=== PATIENT | female | born 2000 | race Caucasian/White ===

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

== ENCOUNTER 2018-09-17 11:29 | Emergency (ER) | payer BC, SELFPAY ==
[2018-09-17 11:41] VITALS: BP 143/93; PULSE 106; RESP 20; TEMP 36.6; O2SAT 100; BMI 19.5
--- NOTE | 2018-09-17 12:19 | HMH.EDUTC ---
[facility] [place] Disposition Clinical Impression: URI (upper respiratory infection) Qualifiers: URI type: unspecified URI Qualified Code(s): J06.9 - Acute upper respiratory infection, unspecified Disposition: Home, Self-Care Condition on Discharge: Good Instructions: Sore Throat, DI for Cough -- Adult Additional Instructions: *Monitor Temp, Over the counter Motrin or Tylenol as directed/as needed Tylenol every 4 hours and Motrin every 6 hours (as long as your family doctor has told you that you can take it) for fever or pain. and straight to ER if unable to lower temp less than 101.0 after medication given *Warm salt water gargles may help to soothe the throat *Throat Lozenges *Warm fluids *Sleep elevated *Humidifier/Vaporizer Follow up with ENT as advised Return if needed Follow up IMMEDIATELY for new or worsening symptoms or no Noticeable improvement over the next 48-72 hours. 911 for difficulty breathing or swallowing Prescriptions: Amoxicillin/Potassium Clav [Augmentin 875-125 Tablet] 1 tab PO Q12H 7 Days #14 tab methylPREDNISolone [Medrol 4mg tab] 4 mg PO DIRECTED #21 tab Referrals: Brady Ramirez [Primary Care Provider] - Stephen Smtih MD [Staff Physician] - As needed (Call and make appointment) Time of Disposition: 13:34 Medical Decision Making - Erasmo Inquiry Pt receiving controlled substance: No Erasmo was queried for this patient: No Vital Signs: 09/17/18 11:41 Temperature 97.8 F Temperature Source Oral Pulse Rate [Right Brachial] 106 H Respiratory Rate 20 Blood Pressure [Right Arm] 143/93 H Blood Pressure Mean [Right Arm] 109 Blood Pressure Source [Right Arm] Automatic Cuff Blood Pressure Position [Right Arm] Sitting 02 Sat by Pulse Oximetry 100 Oxygen Delivery Method Room Air Orders (Tests/Meds): ORDERS Category Date Time Status Chest XR 2 view (NOT portable) [XR chest 2V] Stat Exams 09/17/18 12:20 Taken - Reevaluation(s) Time: 12:52 Reevaluation #1: Still awaiting xray to come and do chest xray, contacted them again and they said they was on their way to get her Time: 13:20 Reevaluation #3: Spoke with ER physician and he advised that he was going to come over and speak with patient, Dr Morales recommended starting patient on augmentin, medrol dose pack and have her follow up with ENT [facility] [place] HPI - General Stated complaint: No voice Time Seen by Provider: 09/17/18 12:19 Mode of Arrival: Family Vehicle Source of Information: Patient Limitations: No Limitations Description of Symptoms (Recalled from Triage Doc. by RN): c/o TROUBLE BREATHING AND CONGESTION HEENT Symptoms (Recalled from RN notes): Yes Resp Symptoms (Recalled from RN notes): Yes Skin Symptoms (Recalled from RN notes): No MS Symptoms (Recalled from RN notes): No Functional Status (Recalled from RN notes): N/A - History of Present Illness Provider Complaint: Patient state that she has been having sore throat and loss of voice State that she feels like she may have some congestion and feels like she cant get a good breath at times State that yesterday she lost her voice and today she is only able to whisper. State that she has been taking her allergy medication but it hasn't helped much - Related Data Home Medications Medication Instructions Recorded Confirmed Fexofenadine/Pseudoephedrine 1 each PO BID 09/17/18 09/17/18 [Saritha-D 12 Hour Tablet] Previous Rx's Medication Instructions Recorded Amoxicillin/Potassium Clav 1 tab PO Q12H 7 Days #14 tab 09/17/18 [Augmentin 875-125 Tablet] methylPREDNISolone [Medrol 4mg 4 mg PO DIRECTED #21 tab 09/17/18 tab] Allergies Allergy/AdvReac Type Severity Reaction Status Date / Time promethazine [PROMETHAZINE] Allergy Unknown Verified 03/24/18 17:02 Sulfa (Sulfonamide Allergy Unknown Verified 03/24/18 17:02 Antibiotics) [SULFA (SULFONAMIDE ANTIBIOTICS)] - Worker's Comp Is this a Worker's Comp case?: No [facility] Histor
--- NOTE | 2018-09-17 12:20 | XR_ITS ---
XR chest 2V HISTORY: ITS.REASON: C/O CONGESTION ORDERING PHYSICIAN: Amparo Carl APRN PATIENT AGE: 17 years COMPARISON: 06/06/2017 FINDINGS: The cardiomediastinal silhouette and pulmonary vascularity are within normal limits. The lungs are clear without infiltrates, suspicious nodules, or pleural effusions. There is a faint nodular opacity in right midlung laterally probably not significant changed. No lobar consolidation or collapse. No acute bony findings. No acute bony abnormalities. IMPRESSION: No change with no acute finding
--- NOTE | 2018-09-17 12:23 | ED_ITS ---
[facility] [place]position Clinical Impression: URI (upper respiratory infection) Qualifiers: URI type: unspecified URI Qualified Code(s): J06.9 - Acute upper respiratory infection, unspecified Disposition: Home, Self-Care Condition on Discharge: Good Instructions: Sore Throat, DI for Cough -- Adult Additional Instructions: *Monitor Temp, Over the counter Motrin or Tylenol as directed/as needed Tylenol every 4 hours and Motrin every 6 hours (as long as your family doctor has told you that you can take it) for fever or pain. and straight to ER if unable to lower temp less than 101.0 after medication given *Warm salt water gargles may help to soothe the throat *Throat Lozenges *Warm fluids *Sleep elevated *Humidifier/Vaporizer Follow up with ENT as advised Return if needed Follow up IMMEDIATELY for new or worsening symptoms or no Noticeable improvement over the next 48-72 hours. 911 for difficulty breathing or swallowing Prescriptions: Amoxicillin/Potassium Clav [Augmentin 875-125 Tablet] 1 tab PO Q12H 7 Days #14 tab methylPREDNISolone [Medrol 4mg tab] 4 mg PO DIRECTED #21 tab Referrals: Brady Ramirez [Primary Care Provider] - Stephen Smith MD [Staff Physician] - As needed (Call and make appointment) Time of Disposition: 13:34 Medical Decision Making - Erasmo Inquiry Pt receiving controlled substance: No Erasmo was queried for this patient: No Vital Signs: 09/17/18 11:41 Temperature 97.8 F Temperature Source Oral Pulse Rate [Right Brachial] 106 H Respiratory Rate 20 Blood Pressure [Right Arm] 143/93 H Blood Pressure Mean [Right Arm] 109 Blood Pressure Source [Right Arm] Automatic Cuff Blood Pressure Position [Right Arm] Sitting 02 Sat by Pulse Oximetry 100 Oxygen Delivery Method Room Air Orders (Tests/Meds): ORDERS Category Date Time Status Chest XR 2 view (NOT portable) [XR chest 2V] Stat Exams 09/17/18 12:20 Taken - Reevaluation(s) Time: 12:52 Reevaluation #1: Still awaiting xray to come and do chest xray, contacted them again and they said they was on their way to get her Time: 13:20 Reevaluation #3: Spoke with ER physician and he advised that he was going to come over and speak with patient, Dr Morales recommended starting patient on augmentin, medrol dose pack and have her follow up with ENT [facility] [place] HPI - General Stated complaint: No voice Time Seen by Provider: 09/17/18 12:19 Mode of Arrival: Family Vehicle Source of Information: Patient Limitations: No Limitations Description of Symptoms (Recalled from Triage Doc. by RN): c/o TROUBLE BREATHING AND CONGESTION HEENT Symptoms (Recalled from RN notes): Yes Resp Symptoms (Recalled from RN notes): Yes Skin Symptoms (Recalled from RN notes): No MS Symptoms (Recalled from RN notes): No Functional Status (Recalled from RN notes): N/A - History of Present Illness Provider Complaint: Patient state that she has been having sore throat and loss of voice State that she feels like she may have some congestion and feels like she cant get a good breath at times State that yesterday she lost her voice and today she is only able to whisper. State that she has been taking her allergy medication but it hasn't helped much - Related Data Home Medications Medication Instructions Recorded Confirmed
[2018-09-17 13:41] VITALS: BP 143/93; PULSE 106; RESP 20; TEMP 36.6; O2SAT 100
== END 2018-09-17 13:42 | disposition home or self-care (01) ==
PROVIDERS: Emergency Provider Nurse Practitioner; PCP Internal Medicine
DX: J06.9 Acute upper respiratory infection, unspecified (principal); Z88.2 Allergy status to sulfonamides
CPT/HCPCS: 71046; 99201

== ENCOUNTER 2019-08-26 09:18 | Emergency (ER) | payer BC, SELFPAY ==
[2019-08-26 09:35] VITALS: BP 117/69; PULSE 86; RESP 17; TEMP 36.8; O2SAT 99; BMI 20.3
[2019-08-26 09:44] LABS: Microscopic, Urine URINE MICROSCOPIC (MICROSCOPIC)
[2019-08-26 09:45] LABS: Basophils % 0.3 % (0.1-2.0); Eosinophils # 0.1 K/mm3 (0.0-0.4); Hematocrit 33.8 % (37.0-47.0); Hemoglobin 11.5 g/dL (12.2-16.2); Lymphocytes # 1.9 K/mm3 (0.7-4.5); Mean Corpuscular Hemoglobin 32.1 pg (27.0-31.2); Mean Corpuscular Volume 94.3 fl (81-99); Mean Platelet Volume 8.2 fl (7.4-10.4); Monocytes # 0.4 K/mm3 (0.1-1.0); Monocytes % 4.5 % (1.7-9.3); Neutrophils # 5.4 K/mm3 (1.8-7.8); Neutrophils % 69.2 % (37.0-80.0); Platelet Count 168 K/mm3 (142-424); Red Blood Count 3.58 M/mm3 (4.20-5.40); White Blood Count 7.8 K/mm3 (4.5-13.0)
[2019-08-26 09:46] LABS: Appearance,Urine CLEAR (Clear); Bilirubin,Urine Negative (Negative); Blood, Urine 3+ (Negative); Color,Urine YELLOW (Yellow); Glucose,Urine (UA) Negative (Negative); Ketones,Urine Negative (Negative); Leukocyte Esterase,Urine TRACE (Negative); Nitrate,Urine Negative (Negative); PH,Urine 7.5 (5.0-8.5); Protein,Urine Negative (Negative); Urobilinogen,Urine 0.2 EU/dl (0.2)
[2019-08-26 09:48] LABS: Chloride 102 mmol/L (98-107); Potassium 3.9 mmoL/L (3.5-5.1); Sodium 136 mmol/L (136-145); Urine Pregnancy, HCG Qual. Positive (Negative)
[2019-08-26 09:50] LABS: Amylase 112 U/L (30-110)
--- NOTE | 2019-08-26 09:50 | US_ITS ---
PROCEDURE: US OB >= 14 WEEKS FETUS CLINICAL INDICATION: vaginal bleeding/abdominal cramping. 17 wk preg. COMPARISON: US OB TRANSVAGINAL from 08/14/2019 FINDINGS: There is a single viable fetus in breech presentation. The placenta is anterior, grade 1. There is a normal amount of amniotic fluid. The heart rate is 136 beats per minute. No gross abnormalities identified. measurements reveal the BPD to be 3.68 cm equaling 17 weeks and 2 days occipital frontal diameter is 5.15 cm equaling 18 weeks 3 days. The head circumference is 14.06 cm equaling 17 weeks 3 days and the abdominal circumference is 13.57 cm equaling 19 weeks 1 day. The femur length is 2.41 cm equaling 17 weeks 2 days. There is normal movement and tone. IMPRESSION: Breech fetus, approximate estimated age 17 weeks 6 days, there has been normal interval growth in the measurement parameters compared with the most recent study Estimated due date by Ultrasound is 01/28/2020 Dictated by: Dr. Tez Grimm MD 08/26/2019 14:[address] Tez Grimm MD in [place] 08/26/2019 14:06
[2019-08-26 09:51] LABS: Alanine Aminotransferase 18 U/L (12-78); Albumin Level 4.1 g/dl (3.5-5.0); Albumin/Globulin Ratio 1.4 (1.1-1.8); Alkaline Phosphatase 68 U/L (38-126); Anion Gap 13.9 mEq/L (5-15); Aspartate Amino Transferase 28 U/L (14-36); Bilirubin,Total 0.6 mg/dl (0.2-1.3); Blood Urea Nitrogen 9 mg/dl (7-17); Calcium 9.2 mg/dl (8.4-10.2); Carbon Dioxide 24 mmol/L (22.0-30.0); Creatinine Clearance Estimated 167 mL/min (50-200); Estimated Glomerular Filt Rate 157 ml/min (>60); GFR (African American) 190 ML/MIN (>60); Globulin 2.9 g/dL (1.3-3.2); Glucose 81 mg/dl (74-100); Lipase 41 U/L (23-300)
[2019-08-26 09:52] LABS: Amorphous Sediment,Urine 3+ /lpf; Squamous Epithelial Cell,Urine Occasional #/hpf (0-5)
[2019-08-26 10:32] LABS: HCG,Quantitative 19623 mIU/ml (0-5.42)
--- NOTE | 2019-08-26 11:37 | PC.NURSE ---
called [facility] [employer] to page economic developer for dr escudero
--- NOTE | 2019-08-26 11:41 | HMH.EDUROGF ---
ED Disposition Clinical Impression: Vaginal bleeding Disposition: Home, Self-Care Condition on Discharge: Good Instructions: DI for Vaginal Bleeding Additional Instructions: I did speak with the patient's VICE PRESIDENT OF CONSULTING SERVICES and she was fine sent the patient home and have her follow-up next week. Referrals: Brady Ramirez [Primary Care Provider] - - Critical Care Critical Care Time: No Attestation: On 08/26/19, the high probability of a clinically significant, sudden or life threatening deterioration of the following system(s) required my full and direct attention, intervention and personal management. The time I documented below is in addition to time spent performing reported procedures but includes the following listed in this critical care notation. Medical Decision Making - Medical Records Medical records reviewed: Yes: I reviewed the patient's medical records. - Erasmo Inquiry Pt receiving controlled substance: No Vital Signs: 08/26/19 09:35 Temperature 98.3 F Temperature Source Oral Pulse Rate [Right Radial] 86 Respiratory Rate 17 Blood Pressure [Right Arm] 117/69 Blood Pressure Mean [Right Arm] 85 02 Sat by Pulse Oximetry 99 Oxygen Delivery Method Room Air - Lab Data Lab results reviewed: Yes: I reviewed the patient's lab results. Lab Results 08/26/19 09:30: Urine Color Yellow, Urine Appearance Clear, Urine pH 7.5, Ur Specific [place] 1.020, Urine Protein Negative, Urine Glucose (UA) Negative, Urine Ketones Negative, Urine Blood 3+, Urine Nitrate Negative, Urine Bilirubin Negative, Urine Urobilinogen 0.2, Ur Leukocyte Esterase Trace, Urine RBC 3-5, Urine WBC 3-5, Ur Squamous Epith Cells Occasional, Amorphous Sediment 3+, Urine Bacteria None 08/26/19 09:30: WBC 7.8, RBC 3.58 L, Hgb 11.5 L, Hct 33.8 L, MCV 94.3, MCH 32.1 H, MCHC 34.0, RDW 15.0, Plt Count 168, MPV 8.2, Neut % (Auto) 69.2, Lymph % (Auto) 25.0, [place] % (Auto) 4.5, Eos % (Auto) 1.0, Baso % (Auto) 0.3, Neut # (Auto) 5.4, Lymph # (Auto) 1.9, [place] # (Auto) 0.4, Eos # (Auto) 0.1, Baso # (Auto) 0.0 08/26/19 09:30: Urine HCG, Qual Positive 08/26/19 09:30: Sodium 136, Potassium 3.9, Chloride 102, Carbon Dioxide 24, Anion Gap 13.9, BUN 9, Creatinine 0.50 L, Estimated Creat Clear 167, Estimated GFR 157, Est GFR ( Amer) 190, Glucose 81, Calcium 9.2, Total Bilirubin 0.6, AST 28, ALT 18, Alkaline Phosphatase 68, Total Protein 7.0, Albumin 4.1, Globulin 2.9, Albumin/Globulin Ratio 1.4, Amylase 112 H, Lipase 41 08/26/19 09:30: HCG, Quant [id number] H 08/26/19 09:44: Blood Type O Positive Result diagrams: 08/26/19 09:30 08/26/19 09:30 Orders (Tests/Meds): ORDERS Category Date Time Status US OB >= 14 weeks Fetus Stat Ultrasound 08/26/19 09:50 Ordered - US Data US Images: Abdomen (Patient is a normal uterine placenta was seen mucous plug was seen normal PIERCE heart rate was 136 and the baby is in breech position.) Female Urogenital HPI - General Chief complaint: Vaginal Bleeding Stated complaint: 17 wks bleeding Time Seen by Provider: 08/26/19 11:41 Mode of Arrival: Ambulatory Limitations: No Limitations Description of Symptoms (Recalled from ER Triage Doc. by RN): pt states she is 17 weeks and she woke up this morning with vaginal bleeding. pt states she is having some cramping but she has had cramping the entire . - History of Present Illness HPI Narrative: 18-year-old female G1, P0 at 17 weeks presents the ED with some vaginal bleeding. She states that she is also feeling some cramping but she has been experiencing some discharge that is been blood-tinged. Patient denies any loss of fluid. She denies any dysuria. She states that the pain she is having is a crampy-like sensation generalized abdomen going on for last 24 hours that comes and goes she states there is been 2-3 episodes of this she rates the pain 3 out of 10 that is tolerable with no exacerbating or limiting factors. Patient also sta
--- NOTE | 2019-08-26 11:41 | PC.NURSE ---
ANDREWS SAMS on phone with Dr Augustin from @ this time
[2019-08-26 11:48] VITALS: BP 112/74; PULSE 102; RESP 16; TEMP 36.6; O2SAT 98
== END 2019-08-26 11:49 | disposition home or self-care (01) ==
PROVIDERS: Emergency Provider Family Medicine; PCP Internal Medicine
DX: O20.9 Hemorrhage in early pregnancy, unspecified (principal); Z3A.17 17 weeks gestation of pregnancy; Z88.2 Allergy status to sulfonamides; Z90.09 Acquired absence of other part of head and neck
CPT/HCPCS: 76805; 80053; 81001; 81025; 82150; 83690; 84702; 85025; 86900; 86901; 99283

== ENCOUNTER 2020-01-16 02:15 | Inpatient (IN) | payer BC, OTHER, SELFPAY ==
[2020-01-15 22:44] VITALS: BMI 27.2
[2020-01-15 23:07] LABS: Microscopic, Urine URINE MICROSCOPIC (MICROSCOPIC)
[2020-01-15 23:08] LABS: Appearance,Urine SL CLOUDY (Clear); Bilirubin,Urine Negative (Negative); Blood, Urine TRACE-L (Negative); Color,Urine YELLOW (Yellow); Glucose,Urine (UA) Negative (Negative); Ketones,Urine Negative (Negative); Leukocyte Esterase,Urine 3+ (Negative); Nitrate,Urine Negative (Negative); PH,Urine 6.5 (5.0-8.5); Protein,Urine Negative (Negative); Urobilinogen,Urine 0.2 EU/dl (0.2)
[2020-01-15 23:20] VITALS: BMI 27.2
[2020-01-15 23:21] LABS: Amphetamine/Metha Screen,Urine Negative ng/ml (<1000); Barbiturates Screen,Urine Negative ng/ml (<200)
[2020-01-15 23:22] LABS: Benzodiazepines Screen,Urine Negative ng/ml (<200); Cannabinoid Screen,Urine Negative ng/ml (<50)
[2020-01-15 23:23] LABS: Cocaine Screen,Urine Negative ng/ml (<300)
[2020-01-15 23:24] LABS: Methadone Screen,Urine Negative ng/ml (<300); Opiate Screen,Urine Negative ng/ml (<300)
[2020-01-15 23:25] LABS: Amorphous Sediment,Urine 1+ /lpf; Bacteria,Urine 1+ /lpf; Mucus,Urine 1+ /lpf; Phencyclidine Screen,Urine Negative ng/ml (<25)
[2020-01-16 01:36] LABS: Basophils % 0.3 % (0.1-2.0); Eosinophils # 0.1 K/mm3 (0.0-0.4); Eosinophils % 0.6 % (0.1-12.0); Hemoglobin 12.5 g/dL (12.2-16.2); Lymphocytes # 2.1 K/mm3 (0.7-4.5); Lymphocytes % 13.5 % (10-50); Mean Corpuscular HGB Conc 34.7 g/dL (31.8-35.4); Mean Corpuscular Hemoglobin 31.7 pg (27.0-31.2); Mean Corpuscular Volume 91.2 fl (81-99); Mean Platelet Volume 10.4 fl (7.4-10.4); Monocytes % 6.3 % (1.7-9.3); Neutrophils # 12.6 K/mm3 (1.8-7.8); Neutrophils % 79.3 % (37.0-80.0); Platelet Count 128 K/mm3 (142-424); Red Blood Count 3.95 M/mm3 (4.20-5.40); Red Cell Distribution Width 14.6 % (11.5-17.5); White Blood Count 15.9 K/mm3 (4.8-10.8)
[2020-01-16 01:40] LABS: MANUAL DIFFERENTIAL MANUAL DIFFERENTIAL (MANUAL DIFF)
[2020-01-16 02:05] LABS: Coronavirus 19 IgG Antibody Negative (Negative); Coronavirus 19 IgM Antibody Negative (Negative)
[2020-01-16 03:35] LABS: Lymphocytes % 12 % (10-50); Monocytes % 1 % (2-9); Neutrophils % 87 % (42-76); Platelet Estimate Normal; RBC Morphology Normal; Total Cells Counted 100
--- NOTE | 2020-01-16 03:47 | HMH.ANESCL ---
[facility] Anesthesia Checklist - Patient Identification Patient Identification: Arm Band - Structural Data Admitted From: Inpatient Planned Operative Procedure/s: labor epidural Consent for Planned Operative Procedure(s) Verified: Yes Verified Documents: History and Physical - NPO Status Verified Time NPO: 00:00 - Additional verifications Anesthesia Reactions: No - Airway Assessment C-Spine Mobility Assessed: Yes TMJ Mobility Assessed: Yes Dentition: Good Dentition - Neurological Assessment Level of Consciousness: Awake, Alert - Anesthesia Plan Anesthesia Risk discussed: Yes Anesthesia Plan: Verified ASA Class: II Anesthesia Type: Epidural [facility] History I have reviewed the patient's past medical history: Yes Medical History: Reports:: Ulcer Denies:: Cancer, Diabetes Mellitus Type 1, Diabetes Mellitus Type 2, Hypertension, MRSA *Have you ever received a pneumonia vaccine?: No *Have you received a flu vaccine this season?: No Other Medical History: Reports: Other Anesthesia experience/problems:: nac Laterality Cases: Bilateral: Myringotomy (Ear Tubes), Tonsillectomy Other Surgeries: Yes: Diagnostic Lap, Other. No: Amputation: No Fractures: No - *Social History Smoking Status: Never smoker Alcohol Intake: never Substance Use Type: denies use *Occupational Status:: unemployed Housing: house Household Members: family *Travel in the last 8 weeks: None Family Hx:: Cancer, Stroke Para: 0
[2020-01-16 07:20] VITALS: BP 116/56; PULSE 84; RESP 18; TEMP 36.9; O2SAT 99
--- NOTE | 2020-01-16 08:02 | HMH.LABNOT ---
Labor Note - Subjective: Date: 01/16/20 Time: 08:03 regular contraction - Objective: NST:: Reactive Contractions:: every 2-3 minutes Cervical Dilation:: 4 Effacement:: 100% Membranes: artificially ruptured - Fetus: Monitoring?: Yes monitoring type:: Internal and External Comment:: I ruptured membranes and there was clear fluid. I inserted an IUPC. - Assessment: Labor progressing?: Yes Cephalopelvic disproportion?: No Patient Problems: All Active Problems Strep pharyngitis (Acute) Abdominal pain (Acute) Ruptured ovarian cyst (Acute) Constipation (Acute) Ovarian cyst (Acute) Low back strain (Acute) Tendinitis, de Quervain's (Acute) Viral upper respiratory illness (Acute) URI (upper respiratory infection) (Acute) Conjunctivitis (Acute) Migraine (Acute) Pelvic pain (Acute) Amenorrhea (Acute) UTI (urinary tract infection) (Acute) Allergic rhinitis (Acute) Nausea & vomiting (Acute) IUD (intrauterine device) in place (Acute) Viral syndrome (Acute) UTI in (Acute) Abdominal pain affecting (Acute) Vaginal bleeding (Acute) - Plan: Anesthesia for epidural?: Yes Continue to labor down?: Yes Plan for ?: No Continue to monitor?: Yes Start pushing?: No
--- NOTE | 2020-01-16 08:03 | HMH.OBAPHP ---
OB - H&P: HPI Antepartum - History of Present Illness Chief complaint: She was having regular contractions. History of present illness: She is a 19-year-old 1 para 0 at 37 and 4 weeks gestational age. She is been followed by a doctor in [place] at [facility]. She lives in [facility]. She did not think she could make it to [place] because she was in active labor. As result of that she came here. She initially was 2 cm and progressed to 4 cm. She is 100% at this point time. She has an epidural. As result of that we are going to expect a vaginal delivery. She is an otherwise healthy young lady. - History of Present Criteria for establishing EDC:: LMP confirmed by 1st trimester US care: good care Ultrasounds: normal 1st trimester US, normal mid trimester US Obstetrical complications: none Medical complications: none - Labs Blood type: O (+) positive Rubella: immune RPR/VDRL: nonreactive GBS status: negative HBsAG: negative [facility] History I have reviewed the patient's past medical history: Yes Medical History: Reports:: Ulcer Denies:: Cancer, Diabetes Mellitus Type 1, Diabetes Mellitus Type 2, Hypertension, MRSA *Have you ever received a pneumonia vaccine?: No *Have you received a flu vaccine this season?: No Other Medical History: Reports: Other Anesthesia experience/problems:: nac Laterality Cases: Bilateral: Myringotomy (Ear Tubes), Tonsillectomy Other Surgeries: Yes: No Previous Surgery, Diagnostic Lap, Other. No: Amputation: No Fractures: No - *Social History Smoking Status: Never smoker Alcohol Intake: never Substance Use Type: denies use *Occupational Status:: unemployed Housing: house Household Members: family *Travel in the last 8 weeks: None Family Hx:: Cancer, Stroke Para: 0 Review of Systems - Review of Systems Review of systems:: pertinent systems reviewed and negative unless documented below Meds Allergies Allergy/AdvReac Type Severity Reaction Status Date / Time promethazine [PROMETHAZINE] Allergy Unknown Verified 12/15/18 16:56 Sulfa (Sulfonamide Allergy Unknown Verified 12/15/18 16:56 Antibiotics) [SULFA (SULFONAMIDE ANTIBIOTICS)] OB - H&P: Exam - Constitutional no acute distress - Routine HEENT Exam Head: Present: normocephalic Eye: Present: EOMI, PERRL ENT: Present: mucous membranes moist - Routine Neck Exam Present: supple, full ROM - Routine Respiratory Exam Absent: accessory muscle use (good air entry bilaterally), respiratory distress, wheezes, crackles - Routine Cardiovascular Exam Present: RRR. Absent: murmur - Routine Abdominal Exam Present: soft, normoactive bowel sounds. Absent: tenderness, distended, guarding - Routine Rectal Exam Patient deferred: visual exam, digital exam - Routine Exam Patient deferred: external exam, groin exam, perineal exam - Routine Extremities Exam Present: full ROM. Absent: cyanosis, edema - Routine Skin Exam Present: intact. Absent: cyanosis - Routine Neurological Exam Present: alert, oriented X3 - Routine Psychiatric Exam Present: normal affect OB - Results - Labs Labs: Short CBC 01/16/20 Range/Units 01:16 WBC 15.9 H (4.8-10.8) K/mm3 Hgb 12.5 (12.2-16.2) g/dL Hct 36.0 L (37.0-47.0) % Plt Count 128 L (142-424) K/mm3 Urine 01/15/20 Range/Units 22:44 Urine Color Yellow (Yellow) Urine Appearance Sl cloudy (Clear) Urine pH 6.5 (5.0-8.5) Ur Specific [place] 1.020 (1.005-1.030) Urine Protein Negative (Negative) Urine Glucose (UA) Negative (Negative) OB - A/P Antepartum (1) Normal delivery at term Current visit: Yes Status: Acute - Additional Plan Plan: expectant management Additional Information:: I have ruptured her membranes and she is 4 cm and had a percent effaced. She is having regular contractions. She has an epidural. She is otherwise healthy
--- NOTE | 2020-01-16 12:52 | HMH.LABNOT ---
Labor Note - Subjective: Date: 01/16/20 Time: 12:32 Comment:: comfortable with epidural cervix complete tracing remains reassuring - Objective: NST:: Reactive Contractions:: every 2-3 minutes Cervical Dilation:: 9-10 Effacement:: 100% Station: +1 Membranes: artificially ruptured - Assessment: Patient Problems: All Active Problems 37 weeks gestation of (Acute) Active labor at term (Acute) with care elsewhere (Acute) Strep pharyngitis (Acute) Abdominal pain (Acute) Ruptured ovarian cyst (Acute) Constipation (Acute) Ovarian cyst (Acute) Low back strain (Acute) Tendinitis, de Quervain's (Acute) Viral upper respiratory illness (Acute) URI (upper respiratory infection) (Acute) Conjunctivitis (Acute) Migraine (Acute) Pelvic pain (Acute) Amenorrhea (Acute) UTI (urinary tract infection) (Acute) Allergic rhinitis (Acute) Nausea & vomiting (Acute) IUD (intrauterine device) in place (Acute) Viral syndrome (Acute) UTI in (Acute) Abdominal pain affecting (Acute) Vaginal bleeding (Acute) Normal delivery at term (Acute) - Plan: Comment:: Labor down; will begin pushing shortly Anticipate
--- NOTE | 2020-01-16 15:29 | HMH.DN ---
- Delivery Note Delivery Date:: 01/16/20 Delivery Time:: 13:20 Anesthesia Type: Epidural Was labor medically induced?: No Infant delivered prior to 39 weeks?: Yes Justification for early elective delivery:: Active Labor Infant Gender: Male at 1 minute: 8 at 5 minutes: 9 Delivery Procedure:: Spontaneous vaginal delivery of liveborn male over intact perineum. Delivery uncomplicated No nuchal cord or shoulder dystocia with delivery placed in DOMINIC with mother immediately after umbilical cord clamped/cut, with standard nursing assessment performed Infant Apgars: 8 & 9 Placenta spontaneously expressed and examined; noted to be complete/intact. Vulva, vagina, and cervix inspected; bilateral labial lacerations repaired for hemostasis EBL: 300 cc All sponge/needle/instrument counts correct at conclusion of procedure Disposition: Mom/baby stable to recovery in LDRP Laceration:: labial Placental Delivery Description: Spontaneous
[2020-01-17 07:44] LABS: Hematocrit 29.4 % (37.0-47.0); Hemoglobin 9.8 g/dL (12.2-16.2)
[2020-01-17 08:30] VITALS: BP 111/68; PULSE 86; RESP 20; TEMP 36.5; O2SAT 100
--- NOTE | 2020-01-17 09:17 | HMH.ACPN2 ---
Internal Medicine - PN: Subj *Date: 01/17/20 *Time: 09:17 Interval history: PPD #1 No unusual complaints Lochia appropriate; asymptomatic with mild post-delivery anemia tolerating regular diet, ambulating and voiding without difficulty pain control sufficient Exam Vital signs and Labs for Last 24 Hours: Temp Pulse Resp BP Pulse Ox 98.4 F 84 18 116/56 L 99 01/16/20 07:20 01/16/20 07:20 01/16/20 07:20 01/16/20 07:20 01/16/20 07:20 Laboratory Results - last 24 hr 01/17/20 07:20: Hgb 9.8 L, Hct 29.4 L I & O for Last 24 hours: Intake & Output 01/14/20 01/15/20 01/16/20 01/17/20 11:59 11:59 11:59 11:59 Weight 174 lb Microbiology Reports for the Last 24 Hours: Microbiology 01/15/20 22:44 Urine,Clean Catch Urine Culture - Final Multiple organisms, suggests contamination. Narrative: CONSTITUTIONAL: no acute distress HEENT: mucous membranes moist PULMONARY: breathing unlabored without audible wheezes CV: no tachycardia or visible JVD; normal LE peripheral pulses ABD: soft, NT/ND, no guarding : fundus firm at/below umbilicus SKIN: no visible rash or lesions EXT: 1+ edema LEs NEURO: alert/oriented, no altered mental status PSYCH: appropriate mood and demeanor without visible anxiety/depression Assessment and Plan (1) Normal delivery at term Current visit: Yes Status: Acute Category: Medical Code(s): O80 - Encounter for full-term uncomplicated delivery - Assessment and plan all Dx Assessment and Plan for all problems:: PPD #1 Routine care PNV with FeSO4 Anticipate discharge home tomorrow
--- NOTE | 2020-01-18 10:15 | P.DS_ITS ---
General - General Admission date:: 01/16/20 Discharge date: 01/18/20 HPI HPI: G1 @ 37+ wks admitted in active labor care at [facility] Normal uncomplicated course uneventful Discharged home on PPD #2 in stable condition Tolerating regular diet, ambulating and voiding without difficulty Declines Rx for pain meds at discharge Advised that she may follow up with either primary OB or our office for care Hospital Course Rhogam Administration: Not Indicated Objective Vital signs: Temp Pulse Resp BP Pulse Ox 97.7 F 86 20 111/68 100 01/17/20 08:30 01/17/20 08:30 01/17/20 08:30 01/17/20 08:30 01/17/20 08:30 DS: Diagnosis - Discharge Diagnosis (1) Normal delivery at term Status: Acute Discharge Plan - Patient Discharge Instructions Additional Instructions: NO STRENUOUS ACTIVITY, NO HEAVY LIFTING AND NOTHING IN THE VAGINA FOR 6 WEEKS. APPT WITH [facility] Patient Instructions: Depression, Hemorrhage, DI for Labor and Delivery, Vaginal , DI for Pre-eclampsia, [facility] Post Discharge Instructions, Preventing the Spread of Coronavirus Discharge Instructions - Follow up Plan Follow up with: Bridget Suarez [Referring] - (F/U IN 6 WEEKS ) Home Medications: Home Medications Medication Instructions Recorded Confirmed Type Ferrous Sulfate [Iron 325mg Tab] 325 mg PO BID 01/16/20 01/16/20 History Vit 91/Iron/Folic/Dha 1 each PO DAILY 01/16/20 01/16/20 History [ + Dha Combo Pack] polyethylene glycoL 3350 [Miralax 17 gm PO DAILY 01/16/20 01/16/20 History 17gm Packet] Prescriptions/Medication Reconciliation: No Action Vit 91/Iron/Folic/Dha [ + Dha Combo Pack] 1 each PO DAILY polyethylene glycoL 3350 [Miralax 17gm Packet] 17 gm PO DAILY Ferrous Sulfate [Iron 325mg Tab] 325 mg PO BID - Problem Reconciliation Problems Reviewed?: Yes
== END 2020-01-18 11:00 | disposition home or self-care (01) | DRG 807 ==
LOC: OBOUT 02:20 → OB 02:20
PROVIDERS: Admitting Provider Obstetrics & Gynecology; PCP Obstetrics & Gynecology; Visit Provider Obstetrics & Gynecology
DX: O70.1 Second degree perineal laceration during delivery (principal); Z37.0 Single live birth; Z3A.37 37 weeks gestation of pregnancy
CPT/HCPCS: 59409; 59025; 80305; 81001; 85007; 85014; 85018; 85025; 86328; 86850; 87086; C1758; J0595; J2405

== ENCOUNTER 2020-06-25 09:57 | Emergency (ER) | payer BC, OTHER, SELFPAY ==
[2020-06-25 10:35] VITALS: BP 130/63; PULSE 80; RESP 14; TEMP 36.5; O2SAT 99; BMI 22.4
--- NOTE | 2020-06-25 10:53 | HMH.EDUTC ---
[facility] [place] Clinical Impression: Exposure to COVID-19 virus, Viral syndrome Disposition: Home, Self-Care Condition on Discharge: Good Instructions: DI for Viral Syndrome, Preventing the Spread of Coronavirus Discharge Instructions Additional Instructions: Drink plenty of fluids. Take tylenol for pain or fever. Return if you begin to have difficulty breathing. Follow up with your regular doctor. GO TO THE ER FOR ANY WORSENING SYMPTOMS Prescriptions: Ondansetron [Zofran 4mg ODT] 4 mg PO Q8HP PRN #12 tab.rapdis PRN Reason: Nausea Transmission Status: Received by [facility] Referrals: Brady Ramirez [Primary Care Provider] - Time of Disposition: 10:56 Medical Decision Making - Medical Records Medical records reviewed: No: I reviewed the patient's medical records. - Erasmo Inquiry Pt receiving controlled substance: No Vital Signs: 06/25/20 10:35 06/25/20 11:08 Temperature 97.7 F 97.9 F Temperature Source Oral Oral Pulse Rate 75 Pulse Rate [Right] 80 Respiratory Rate 14 16 Blood Pressure 129/65 Blood Pressure [Right Arm] 130/63 Blood Pressure Mean [Right Arm] 85 Blood Pressure Source [Right Arm] Automatic Cuff 02 Sat by Pulse Oximetry 99 Oxygen Delivery Method Room Air [facility] [place] - General Stated complaint: Exposure to covid, cov test Time Seen by Provider: 06/25/20 10:53 Mode of Arrival: Ambulatory Source of Information: Patient Limitations: No Limitations Description of Symptoms (Recalled from Triage Doc. by RN): pt states she was directly exposed to her mother in law who is covid positive on 06/18. pt is having a sore throat, stomach pains and FRAGA HEENT Symptoms (Recalled from RN notes): Yes (sore throat and FRAGA) Resp Symptoms (Recalled from RN notes): No Skin Symptoms (Recalled from RN notes): No MS Symptoms (Recalled from RN notes): No Functional Status (Recalled from RN notes): na - History of Present Illness Provider Complaint: She states that her mother has covid. Her mother is her real estate investment analyst, so her child has been exposed to covid. She denies any complaints at this time other than a mild head ache and some gi upset. - Related Data Home Medications Medication Instructions Recorded Confirmed Ferrous Sulfate [Iron 325mg Tab] 325 mg PO BID 01/16/20 01/16/20 Vit 91/Iron/Folic/Dha 1 each PO DAILY 01/16/20 01/16/20 [ + Dha Combo Pack] polyethylene glycoL 3350 [Miralax 17 gm PO DAILY 01/16/20 01/16/20 17gm Packet] Previous Rx's Medication Instructions Recorded Ondansetron [Zofran 4mg ODT] 4 mg PO Q8HP PRN #12 tab.rapdis 06/25/20 Allergies Allergy/AdvReac Type Severity Reaction Status Date / Time promethazine [PROMETHAZINE] Allergy Unknown Verified 06/25/20 10:14 Sulfa (Sulfonamide Allergy Unknown Verified 06/25/20 10:14 Antibiotics) [SULFA (SULFONAMIDE ANTIBIOTICS)] - Worker's Comp Is this a Worker's Comp case?: No [facility] History - Hepatitis A Screen Drug use history?: No High risk sexual behaviors?: No History of sexually transmitted infection?: No Currently employed?: No Childcare worker?: No Do you have indoor plumbing?: Yes Do you have electricity?: Yes Attestation statement:: This patient has been screened for Hepatitis A risk factors. I have reviewed the patient's past medical history: Yes Medical History: Reports:: Ulcer Denies:: Cancer, Diabetes Mellitus Type 1, Diabetes Mellitus Type 2, Hypertension, MRSA Other Medical History: Reports: Other Laterality Cases: Bilateral: Myringotomy (Ear Tubes), Tonsillectomy Other Surgeries: Yes: No Previous Surgery, Diagnostic Lap, Other. No: Amputation: No Fractures: No - Social History Smoking Status: Never smoker Alcohol Intake: never Substance Use Type: denies use Occupational Status: employed Housing: house Household Members: significant other Family Hx:: Cancer, Diabetes, Stroke ROS Obtained: Yes All syst
[2020-06-25 11:08] VITALS: BP 129/65; PULSE 75; RESP 16; TEMP 36.6
== END 2020-06-25 11:10 | disposition home or self-care (01) ==
PROVIDERS: Emergency Provider Nurse Practitioner Family; PCP Internal Medicine
DX: Z20.822 Contact with and (suspected) exposure to COVID-19 (principal); B34.9 Viral infection, unspecified; Z88.2 Allergy status to sulfonamides
CPT/HCPCS: 99202; G0463; U0003

== ENCOUNTER 2020-09-09 09:17 | Emergency (ER) | payer BC, OTHER, SELFPAY ==
[2020-09-09] VITALS (12 sets, daily range): BP systolic 117–139; BP diastolic 62–91; PULSE 70–84; RESP 16–19; TEMP 36.6–36.9; O2SAT 97–100; BMI 21.6
--- NOTE | 2020-09-09 09:39 | HMH.EDUTC ---
[facility] [place] Disposition Condition on Discharge: Good Time of Disposition: 09:49 <Amparo Carl - Last Filed: 09/09/20 09:49> <Maxim Norman - Last Filed: 09/09/20 21:28> Clinical Impression: PCOS (polycystic ovarian syndrome), History of endometriosis Abdominal pain Qualifiers: Abdominal location: unspecified location Qualified Code(s): R10.9 - Unspecified abdominal pain Disposition: Home, Self-Care Instructions: DI for Endometriosis Additional Instructions: Continue to use Tylenol and ibuprofen for pain and return to the ED for any significant change or worsening in your symptoms follow-up with OB for further evaluation and management. Referrals: Brady Ramirez [Primary Care Provider] - Forms: Work/School Release Medical Decision Making - Erasmo Inquiry Pt receiving controlled substance: No Erasmo was queried for this patient: No <Amparo Carl - Last Filed: 09/09/20 09:49> - Lab Data Result diagrams: 09/09/20 10:25 09/09/20 10:25 <Maxim Norman - Last Filed: 09/09/20 21:28> Vital Signs: 09/09/20 09:34 09/09/20 10:17 09/09/20 10:28 Temperature 98.4 F 98.4 F Temperature Source Oral Oral Pulse Rate Pulse Rate [Right Brachial] 84 80 Respiratory Rate 19 16 Blood Pressure 130/80 Blood Pressure [Right Arm] 139/91 H 127/89 Blood Pressure Mean Blood Pressure Mean [Right Arm] 107 101 Blood Pressure Source [Right Arm] Automatic Cuff Automatic Cuff Blood Pressure Position Blood Pressure Position [Right Arm] Sitting Sitting 02 Sat by Pulse Oximetry 98 98 97 Oxygen Delivery Method Room Air 09/09/20 10:30 09/09/20 11:00 09/09/20 11:30 Temperature Temperature Source Pulse Rate 74 77 Pulse Rate [Right Brachial] 79 Respiratory Rate 18 Blood Pressure 130/75 123/72 Blood Pressure [Right Arm] 123/72 Blood Pressure Mean 93 Blood Pressure Mean [Right Arm] 89 Blood Pressure Source [Right Arm] Automatic Cuff Blood Pressure Position Blood Pressure Position [Right Arm] Sitting 02 Sat by Pulse Oximetry 98 98 100 Oxygen Delivery Method Room Air 09/09/20 12:15 09/09/20 12:45 09/09/20 13:09 Temperature Temperature Source Pulse Rate 76 73 79 Pulse Rate [Right Brachial] Respiratory Rate 18 Blood Pressure 134/72 Blood Pressure [Right Arm] Blood Pressure Mean 93 Blood Pressure Mean [Right Arm] Blood Pressure Source [Right Arm] Blood Pressure Position Blood Pressure Position [Right Arm] 02 Sat by Pulse Oximetry 100 100 100 Oxygen Delivery Method 09/09/20 13:30 09/09/20 14:00 09/09/20 14:37 Temperature 98 F Temperature Source Oral Pulse Rate 70 70 78 Pulse Rate [Right Brachial] Respiratory Rate 18 18 16 Blood Pressure 117/62 121/81 123/78 Blood Pressure [Right Arm] Blood Pressure Mean 80 93 Blood Pressure Mean [Right Arm] Blood Pressure Source [Right Arm] Blood Pressure Position Sitting Blood Pressure Position [Right Arm] 02 Sat by Pulse Oximetry 98 100 Oxygen Delivery Method Room Air - Lab Data Lab Results 09/09/20 10:25: Urine Color Yellow, Urine Appearance Clear, Urine pH 6.0, Ur Specific [place] 1.025, Urine Protein Negative, Urine Glucose (UA) Negative, Urine Ketones Trace, Urine Blood Negative, Urine Nitrate Negative, Urine Bilirubin 1+ A, Urine Urobilinogen 1.0, Ur Leukocyte Esterase Negative, Urine RBC None, Urine WBC 3-5, Ur Squamous Epith Cells 3-5, Urine Bacteria None 09/09/20 10:25: WBC 5.2, RBC 4.52, Hgb 13.7, Hct 40.1, MCV 88.7, MCH 30.2, MCHC 34.1, RDW 14.4, Plt Count 149, MPV 8.8, Neut % (Auto) 58.3, Lymph % (Auto) 33.3, [place] % (Auto) 7.3, Eos % (Auto) 0.7, Baso % (Auto) 0.4, Neut # (Auto) 3.0, Lymph # (Auto) 1.7, [place] # (Auto) 0.4, Eos # (Auto) 0.0, Baso # (Auto) 0.0 09/09/20 10:25: Urine HCG, Qual Negative 09/09/20 10:25: Sodium 139, Potassium 3.7, Chloride 103, Carbon Dioxide 27, Anion Gap 12.7, BUN 10, Creatinine 0.60, Estimated Creat Clear 147, Estimated GFR 126, E
--- NOTE | 2020-09-09 10:28 | HMH.EDGENADL ---
ED Disposition Clinical Impression: PCOS (polycystic ovarian syndrome), History of endometriosis Abdominal pain Qualifiers: Abdominal location: unspecified location Qualified Code(s): R10.9 - Unspecified abdominal pain Disposition: Home, Self-Care Condition on Discharge: Good Instructions: DI for Endometriosis Additional Instructions: Continue to use Tylenol and ibuprofen for pain and return to the ED for any significant change or worsening in your symptoms follow-up with OB for further evaluation and management. Referrals: Brady Ramirez [Primary Care Provider] - Forms: Work/School Release Time of Disposition: 14:28 - Critical Care Critical Care Time: No Attestation: On 09/09/20, the high probability of a clinically significant, sudden or life threatening deterioration of the following system(s) required my full and direct attention, intervention and personal management. The time I documented below is in addition to time spent performing reported procedures but includes the following listed in this critical care notation. Medical Decision Making - Medical Records Medical records reviewed: Yes: I reviewed the patient's medical records. - Erasmo Inquiry Pt receiving controlled substance: No Vital Signs: 09/09/20 09:34 09/09/20 10:17 09/09/20 10:28 Temperature 98.4 F 98.4 F Temperature Source Oral Oral Pulse Rate Pulse Rate [Right Brachial] 84 80 Respiratory Rate 19 16 Blood Pressure 130/80 Blood Pressure [Right Arm] 139/91 H 127/89 Blood Pressure Mean Blood Pressure Mean [Right Arm] 107 101 Blood Pressure Source [Right Arm] Automatic Cuff Automatic Cuff Blood Pressure Position Blood Pressure Position [Right Arm] Sitting Sitting 02 Sat by Pulse Oximetry 98 98 97 Oxygen Delivery Method Room Air 09/09/20 10:30 09/09/20 11:00 09/09/20 11:30 Temperature Temperature Source Pulse Rate 74 77 Pulse Rate [Right Brachial] 79 Respiratory Rate 18 Blood Pressure 130/75 123/72 Blood Pressure [Right Arm] 123/72 Blood Pressure Mean 93 Blood Pressure Mean [Right Arm] 89 Blood Pressure Source [Right Arm] Automatic Cuff Blood Pressure Position Blood Pressure Position [Right Arm] Sitting 02 Sat by Pulse Oximetry 98 98 100 Oxygen Delivery Method Room Air 09/09/20 12:15 09/09/20 12:45 09/09/20 13:09 Temperature Temperature Source Pulse Rate 76 73 79 Pulse Rate [Right Brachial] Respiratory Rate 18 Blood Pressure 134/72 Blood Pressure [Right Arm] Blood Pressure Mean 93 Blood Pressure Mean [Right Arm] Blood Pressure Source [Right Arm] Blood Pressure Position Blood Pressure Position [Right Arm] 02 Sat by Pulse Oximetry 100 100 100 Oxygen Delivery Method 09/09/20 13:30 09/09/20 14:00 09/09/20 14:37 Temperature 98 F Temperature Source Oral Pulse Rate 70 70 78 Pulse Rate [Right Brachial] Respiratory Rate 18 18 16 Blood Pressure 117/62 121/81 123/78 Blood Pressure [Right Arm] Blood Pressure Mean 80 93 Blood Pressure Mean [Right Arm] Blood Pressure Source [Right Arm] Blood Pressure Position Sitting Blood Pressure Position [Right Arm] 02 Sat by Pulse Oximetry 98 100 Oxygen Delivery Method Room Air - Lab Data Lab Results 09/09/20 10:25: Urine Color Yellow, Urine Appearance Clear, Urine pH 6.0, Ur Specific [place] 1.025, Urine Protein Negative, Urine Glucose (UA) Negative, Urine Ketones Trace, Urine Blood Negative, Urine Nitrate Negative, Urine Bilirubin 1+ A, Urine Urobilinogen 1.0, Ur Leukocyte Esterase Negative, Urine RBC None, Urine WBC 3-5, Ur Squamous Epith Cells 3-5, Urine Bacteria None 09/09/20 10:25: WBC 5.2, RBC 4.52, Hgb 13.7, Hct 40.1, MCV 88.7, MCH 30.2, MCHC 34.1, RDW 14.4, Plt Count 149, MPV 8.8, Neut % (Auto) 58.3, Lymph % (Auto) 33.3, [place] % (Auto) 7.3, Eos % (Auto) 0.7, Baso % (Auto) 0.4, Neut # (Auto) 3.0, Lymph # (Auto) 1.7, [place] # (Auto) 0.4, Eos # (Auto) 0.0, Baso # (Auto)
[2020-09-09 10:40] LABS: Microscopic, Urine URINE MICROSCOPIC (MICROSCOPIC)
[2020-09-09 10:42] LABS: Basophils % 0.4 % (0.1-2.0); Eosinophils % 0.7 % (0.1-12.0); Hematocrit 40.1 % (37.0-47.0); Hemoglobin 13.7 g/dL (12.2-16.2); Lymphocytes # 1.7 K/mm3 (0.7-4.5); Lymphocytes % 33.3 % (10-50); Mean Corpuscular HGB Conc 34.1 g/dL (31.8-35.4); Mean Corpuscular Hemoglobin 30.2 pg (27.0-31.2); Mean Corpuscular Volume 88.7 fl (81-99); Mean Platelet Volume 8.8 fl (7.4-10.4); Monocytes # 0.4 K/mm3 (0.1-1.0); Monocytes % 7.3 % (1.7-9.3); Neutrophils % 58.3 % (37.0-80.0); Platelet Count 149 K/mm3 (142-424); Red Blood Count 4.52 M/mm3 (4.20-5.40); Red Cell Distribution Width 14.4 % (11.5-17.5); White Blood Count 5.2 K/mm3 (4.8-10.8)
[2020-09-09 10:44] LABS: Appearance,Urine CLEAR (Clear); Blood, Urine Negative (Negative); Color,Urine YELLOW (Yellow); Glucose,Urine (UA) Negative (Negative); Ketones,Urine TRACE (Negative); Leukocyte Esterase,Urine Negative (Negative); Nitrate,Urine Negative (Negative); Protein,Urine Negative (Negative); Specific Gravity, Urine 1.025 (1.005-1.030)
[2020-09-09 10:46] LABS: Bilirubin,Urine 1+ (Negative); Urine Pregnancy, HCG Qual. Negative (Negative)
--- NOTE | 2020-09-09 10:48 | US_ITS ---
PROCEDURE: US TRANSVAGINAL CLINICAL INDICATION: hx of cysts r/o torsion COMPARISON: US US OB TRANSVAGINAL from 08/14/2019 FINDINGS: UTERUS: 9cm x 5cmx 4cm with a combined endometrial thickness of 9.4mm LEFT OVARY: [id number] with a volume of 18.2ml. RIGHT OVARY: [id number] with a volume of 18.1ml. Both ovaries are enlarged with multiple small follicular cysts consistent with polycystic ovarian changes. There is blood flow present within the ovaries. IMPRESSION: Polycystic appearance of the ovaries Dictated by: Marcelo Valderrama MD 09/09/2020 13:26 Marcelo Valderrama MD in OV 09/09/2020 13:26
[2020-09-09 10:49] LABS: Chloride 103 mmol/L (98-107); Sodium 139 mmol/L (136-145)
--- NOTE | 2020-09-09 10:49 | CT_ITS ---
PROCEDURE: CT ABDOMEN PELVIS W CON CLINICAL INDICATION: left flank/ LLQ pain COMPARISON: CT ABDPELW CT abdomen pelvis w con from 11/07/2018 TECHNIQUE: IV Contrast: 75ML Isovue 370 Oral Contrast None Axial images obtained with sagittal and coronal reformats. All CT scans at the facility use one or more dose reduction, viz: automated exposure control, ma/kV adjustment per patient size (including targeted exams where dose is matched to indication, i.e. head), or iterative reconstruction technique. FINDINGS: LOWER THORAX: No acute finding. Minimal nonspecific thickening of the pericardium anteriorly of questionable clinical significance ABDOMEN & PELVIS: There is borderline splenomegaly at 13 cm. No focal splenic lesion is evident. The liver, adrenal glands, pancreas, the and kidneys have an unremarkable appearance. No renal or ureteral calculi. No hydronephrosis. There is a mild amount of retained colonic feces. No evidence of appendicitis. There is a tiny umbilical hernia containing fat. There is a small amount fluid in the cul-de-sac. There is slightly prominent hypodense changes of the endometrium. Please correlate as the patient's area menstruation. Previously noted IUD is no longer present. No acute bony findings. IMPRESSION: 1. No definite acute finding. No renal calculus or ureteral calculus 2. Small amount fluid in the pelvis. 3. Previously noted IUD is no longer apparent. There is mildly prominent low-density changes of the endometrium for which correlation with patient's phase of menstruation is suggest Dictated by: Marcelo Valderrama MD 09/09/2020 12:45 Marcelo Valderrama MD in [place] 09/09/2020 12:45
[2020-09-09 10:50] LABS: Potassium 3.7 mmoL/L (3.5-5.1)
[2020-09-09 10:52] LABS: Alanine Aminotransferase 22 U/L (12-78); Alkaline Phosphatase 159 U/L (38-126); Anion Gap 12.7 mEq/L (5-15); Aspartate Amino Transferase 32 U/L (14-36); Bilirubin,Total 1.3 mg/dl (0.2-1.3); Blood Urea Nitrogen 10 mg/dl (7-17); Calcium 9.4 mg/dl (8.4-10.2); Carbon Dioxide 27 mmol/L (22.0-30.0); Creatinine Clearance Estimated 147 mL/min (50-200); Estimated Glomerular Filt Rate 126 ml/min (>60); GFR (African American) 153 ML/MIN (>60); Glucose 95 mg/dl (74-100); Lipase 39 U/L (23-300)
[2020-09-09 10:53] LABS: Albumin Level 4.9 g/dl (3.5-5.0); Albumin/Globulin Ratio 1.9 (1.1-1.8); Globulin 2.6 g/dL (1.3-3.2); Total Protein,Serum 7.5 g/dl (6.3-8.2)
--- NOTE | 2020-09-09 11:22 | PC.NURSE ---
GONE TO CT
== END 2020-09-09 14:39 | disposition home or self-care (01) ==
LOC: UTC 09:21 → ER 09:41
PROVIDERS: Emergency Provider Student in an Organized Health Care Education/Training Program; PCP Internal Medicine
DX: R10.32 Left lower quadrant pain (principal); E28.2 Polycystic ovarian syndrome; N80.9 Endometriosis, unspecified; Z88.2 Allergy status to sulfonamides
CPT/HCPCS: 74177; 76830; 80053; 81001; 81025; 83690; 85025; 96365; 96375; 99283; Q9967

== ENCOUNTER → 2020-11-25 15:22 | Outpatient (CLI) | payer BC, OTHER, SELFPAY | PROVIDERS: Visit Provider Family Medicine | DX: N91.2 Amenorrhea, unspecified (principal) | CPT/HCPCS: 84702 ==

== ENCOUNTER → 2020-12-25 08:31 | Outpatient (CLI) | payer BC, OTHER, SELFPAY | PROVIDERS: PCP Family Medicine; Visit Provider Family Medicine | DX: Z20.822 Contact with and (suspected) exposure to COVID-19 (principal) | CPT/HCPCS: U0003 ==

== ENCOUNTER → 2020-12-28 12:17 | Outpatient (CLI) | payer BC, OTHER, SELFPAY ==
[2020-12-28 12:21] LABS: Adenovirus F 40/41, stool Not Detected (NotDetected); Astrovirus Not Detected (NotDetected); Campylobacter Not Detected (NotDetected); Clostridium Difficile A/B, PCR Not Detected (NotDetected); Cryptosporidium Not Detected (NotDetected); Cyclospora Cayetanesis Not Detected (NotDetected); Entamoeba histolytica Not Detected (NotDetected); Enteroaggregative E coli Not Detected (NotDetected); Enterotoxigenic E coli Not Detected (NotDetected); Giardia lamblia Not Detected (NotDetected); Norovirus Not Detected (NotDetected); Plesimonas Shigalloides, PCR Not Detected (NotDetected); Rotavirus A Not Detected (NotDetected); Salmonella, PCR Not Detected (NotDetected); Sapovirus Not Detected (NotDetected); Shiga-like toxin E coli Not Detected (NotDetected); Shigella Enterovasive E coli Not Detected (NotDetected); Vibrio Cholerae Not Detected (NotDetected); Vibrio, PCR Not Detected (NotDetected); Yersinia Entercolitica, PCR Not Detected (NotDetected)
[2020-12-28 17:12] LABS: Enteropathogenic E coli Detected (NotDetected)
== END ==
PROVIDERS: Visit Provider Physician Assistant
DX: R19.7 Diarrhea, unspecified (principal); A04.0 Enteropathogenic Escherichia coli infection
CPT/HCPCS: 87507

== ENCOUNTER 2021-01-01 17:09 | Emergency (ER) | payer BC, OTHER, SELFPAY ==
[2021-01-01 17:10] VITALS: BP 120/68; PULSE 96; RESP 18; TEMP 36.8; O2SAT 100; BMI 19.7
[2021-01-01 17:29] VITALS: BMI 19.7
[2021-01-01 17:40] VITALS: BP 120/58; PULSE 82; RESP 18; O2SAT 100
--- NOTE | 2021-01-01 17:45 | ECG_ITS ---
APPROVED REPORT Exam: Resting ECG HR:83 bpm ECG Measurements Heart Rate 83 AXES QRSd 68 QRS 65 QT 368 T 44 QTc 432 Conclusion Atrial fibrillation Abnormal ECG Electronically signed by : Brien Carey MD 01/03/2021 12:06:36
[2021-01-01 17:54] LABS: Basophils % 0.4 % (0.1-2.0); Eosinophils # 0.1 K/mm3 (0.0-0.4); Hematocrit 34.3 % (37.0-47.0); Hemoglobin 12.3 g/dL (12.2-16.2); Lymphocytes # 2.5 K/mm3 (0.7-4.5); Lymphocytes % 32.2 % (10-50); Mean Corpuscular HGB Conc 35.8 g/dL (31.8-35.4); Mean Corpuscular Hemoglobin 30.4 pg (27.0-31.2); Mean Platelet Volume 8.3 fl (7.4-10.4); Monocytes # 0.4 K/mm3 (0.1-1.0); Monocytes % 5.1 % (1.7-9.3); Neutrophils # 4.7 K/mm3 (1.8-7.8); Neutrophils % 61.2 % (37.0-80.0); Platelet Count 183 K/mm3 (142-424); Red Blood Count 4.03 M/mm3 (4.20-5.40); Red Cell Distribution Width 15.5 % (11.5-17.5); White Blood Count 7.7 K/mm3 (4.8-10.8)
[2021-01-01 17:56] LABS: Alanine Aminotransferase 24 U/L (12-78); Albumin Level 4.4 g/dl (3.5-5.0); Albumin/Globulin Ratio 1.6 (1.1-1.8); Alkaline Phosphatase 87 U/L (38-126); Anion Gap 15.7 mEq/L (5-15); Aspartate Amino Transferase 31 U/L (14-36); Bilirubin,Total 0.7 mg/dl (0.2-1.3); Blood Urea Nitrogen 9 mg/dl (7-17); Calcium 8.6 mg/dl (8.4-10.2); Carbon Dioxide 24 mmol/L (22.0-30.0); Chloride 101 mmol/L (98-107); Creatinine Clearance Estimated 159 mL/min (50-200); Estimated Glomerular Filt Rate 154 ml/min (>60); GFR (African American) 187 ML/MIN (>60); Globulin 2.8 g/dL (1.3-3.2); Glucose 91 mg/dl (74-100); Magnesium 1.7 mg/dl (1.6-2.3); Potassium 3.7 mmoL/L (3.5-5.1); Sodium 137 mmol/L (136-145); Total Protein,Serum 7.2 g/dl (6.3-8.2)
--- NOTE | 2021-01-01 17:58 | HMH.EDGENADL ---
ED Disposition Clinical Impression: Palpitations Disposition: Home, Self-Care Condition on Discharge: Good Additional Instructions: Return the emergency department for worsening chest pain dizziness or any other concerns within the next 8 hours otherwise follow-up with Dr. Wills as recommended Referrals: Brady Ramirez [Primary Care Provider] - - Critical Care Critical Care Time: No Attestation: On , the high probability of a clinically significant, sudden or life threatening deterioration of the following system(s) required my full and direct attention, intervention and personal management. The time I documented below is in addition to time spent performing reported procedures but includes the following listed in this critical care notation. Medical Decision Making - Medical Records Medical records reviewed: Yes: I reviewed the patient's medical records. - Erasmo Inquiry Pt receiving controlled substance: No Vital Signs: 01/01/21 17:10 01/01/21 17:40 01/01/21 18:30 Temperature 98.2 F Temperature Source Oral Pulse Rate 82 82 Pulse Rate [Right Radial] 96 H Respiratory Rate 18 18 18 Blood Pressure 120/58 L 120/72 Blood Pressure [Right Arm] 120/68 Blood Pressure Mean 88 Blood Pressure Mean [Right Arm] 85 Blood Pressure Source [Right Arm] Automatic Cuff Blood Pressure Position [Right Arm] Sitting 02 Sat by Pulse Oximetry 100 100 100 Oxygen Delivery Method Room Air - Lab Data Lab Results 01/01/21 17:38: WBC 7.7, RBC 4.03 L, Hgb 12.3, Hct 34.3 L, MCV 85.0, MCH 30.4, MCHC 35.8 H, RDW 15.5, Plt Count 183, MPV 8.3, Neut % (Auto) 61.2, Lymph % (Auto) 32.2, [place] % (Auto) 5.1, Eos % (Auto) 1.0, Baso % (Auto) 0.4, Neut # (Auto) 4.7, Lymph # (Auto) 2.5, [place] # (Auto) 0.4, Eos # (Auto) 0.1, Baso # (Auto) 0.0 01/01/21 17:38: D-Dimer 0.36 01/01/21 17:38: Sodium 137, Potassium 3.7, Chloride 101, Carbon Dioxide 24, Anion Gap 15.7 H, BUN 9, Creatinine 0.50 L, Estimated Creat Clear 159, Estimated GFR 154, Est GFR ( Amer) 187, Glucose 91, Calcium 8.6, Magnesium 1.7, Total Bilirubin 0.7, AST 31, ALT 24, Alkaline Phosphatase 87, Total Protein 7.2, Albumin 4.4, Globulin 2.8, Albumin/Globulin Ratio 1.6, TSH 0.94 Result diagrams: 01/01/21 17:38 01/01/21 17:38 Medical Decision Narrative: 18-year-old female presents with intermittent episodes of palpitations and tachycardia. She is in no acute distress nontoxic-appearing comfortable in the room at this time. She has no abdominal pain or pelvic pain. She had ultrasound 8 weeks that confirmed IUP. Obtaining thyroid electrolyte creatinine and blood count evaluation. EKG shows normal sinus rhythm heart rate 83 with normal intervals, no preexcitation or other concerning findings for palpitation. TSH was normal, hematocrit was normal electrolytes and creatinine were normal heart rate has been consistently in the 80s here. In discussing more with her she does consistently run in the 120s to 130s at home. Given precautions regarding exertion and recommended to follow-up with Dr. Wills General Adult HPI - General Chief complaint: Recheck/Abnormal Lab/Rx Stated complaint: 13W , high heart rate Time Seen by Provider: 01/01/21 17:10 Mode of Arrival: Ambulatory Limitations: No Limitations Description of Symptoms (Recalled from ER Triage Doc. by RN): Pt advises that she is 13 weeks and has had a fast heart rate today - History of Present Illness HPI narrative: 20-year-old female presents with intermittent episodes of fast heart rate. She is 13 weeks and recorded a heart rate of 157 on her apple watch today. At this point she does not feel that it is running fast. She recorded this heart rate when she was sitting comfortably in a chair. No fever chills cough abdominal pain chest pain or any other symptoms. She has family history of thyroid problems. No abdominal pain vaginal bleeding or discharge - Related Adelfo
[2021-01-01 18:00] LABS: D-Dimer 0.36 ug/mL (0.0-0.5)
[2021-01-01 18:27] LABS: Thyroid Stimulating Hormone 0.94 uIU/mL (0.465-4.68)
[2021-01-01 18:30] VITALS: BP 120/72; PULSE 82; RESP 18; O2SAT 100
[2021-01-01 19:09] VITALS: BP 124/61; PULSE 71; RESP 16; TEMP 36.7; O2SAT 97
== END 2021-01-01 19:10 | disposition home or self-care (01) ==
PROVIDERS: Emergency Provider Emergency Medicine; PCP Internal Medicine
DX: R00.2 Palpitations (principal); Z3A.13 13 weeks gestation of pregnancy
CPT/HCPCS: 80053; 83735; 84443; 85025; 85378; 93005; 99282

== ENCOUNTER → 2021-01-07 14:38 | Outpatient (CLI) | payer BC, OTHER, SELFPAY | PROVIDERS: PCP Internal Medicine; Visit Provider Physician Assistant | DX: R00.2 Palpitations (principal); R00.1 Bradycardia, unspecified | CPT/HCPCS: 93225 ==

== ENCOUNTER 2021-02-01 10:48 | Emergency (ER) | payer BC, OTHER, SELFPAY ==
[2021-02-01 10:48] VITALS: BP 109/79; PULSE 102; RESP 18; TEMP 37; O2SAT 99; BMI 20.9
[2021-02-01 11:41] LABS: Apearance,Urine Clear (Clear); Color,Urine Yellow (Yellow)
[2021-02-01 11:42] LABS: Bilirubin,Urine 1+ (Negative); Blood, Urine Negative (Negative); Glucose,Urine (UA) Negative (Negative); Ketones,Urine Negative (Negative); Protein,Urine 1+ (Negative); UTC Leukocyte Esterase,Urine Negative (Negative); UTC Nitrate,Urine Negative (Negative); Urobilinogen,Urine 0.2 EU/dl (0.2)
--- NOTE | 2021-02-01 12:11 | HMH.EDUTC ---
[facility] [place] Disposition Clinical Impression: Viral syndrome, Exposure to COVID-19 virus Disposition: Home, Self-Care Condition on Discharge: Good Instructions: DI for Viral Syndrome, DI for COVID-19 (Suspected or Confirmed ), Preventing the Spread of Coronavirus Discharge Instructions Additional Instructions: Drink plenty of fluids. Take tylenol or ibuprofen for pain or fever. Take the medications as directed. Follow up with your regular doctor. GO TO THE ER FOR ANY WORSENING SYMPTOMS Quarantine until you know the results of your covid-19 test. If it is positive, the health department should call you and give you further instructions about your length of Quarantine and other things. Notify your school or workplace of your results and follow their instructions regarding return to work/school. Referrals: Dustin Perez MD [Primary Care Provider] - Time of Disposition: 12:17 Medical Decision Making - Medical Records Medical records reviewed: No: I reviewed the patient's medical records. - Erasmo Inquiry Pt receiving controlled substance: No Vital Signs: 02/01/21 10:48 02/01/21 12:28 Temperature 98.6 F 99 F Temperature Source Tympanic Tympanic Pulse Rate 102 H Pulse Rate [Apical] 102 H Respiratory Rate 18 18 Blood Pressure 109/79 L Blood Pressure [Right Arm] 109/79 L Blood Pressure Mean [Right Arm] 89 Blood Pressure Source Automatic Cuff Blood Pressure Source [Right Arm] Automatic Cuff Blood Pressure Position Sitting Blood Pressure Position [Right Arm] Supine 02 Sat by Pulse Oximetry 99 Oxygen Delivery Method Room Air Room Air - Lab Data Lab Results 02/01/21 11:11: Urine Color Yellow, Urine Appearance Clear, Urine pH 6.0, Ur Specific [place] 1.030, Urine Protein 1+, Urine Glucose (UA) Negative, Urine Ketones Negative, Urine Blood Negative, Urine Nitrate Negative, Urine Bilirubin 1+ A, Urine Urobilinogen 0.2, Ur Leukocyte Esterase Negative Orders (Tests/Meds): ORDERS Category Date Time Status Urine Culture Stat Micro 02/01/21 11:28 Received [facility] [place] HPI - General Stated complaint: congestion, nausea, weaness Time Seen by Provider: 02/01/21 12:11 Mode of Arrival: Ambulatory Source of Information: Patient Limitations: No Limitations Description of Symptoms (Recalled from Triage Doc. by RN): nausea,vomitig, nasal congestion, body aches, weakness, lower back pain HEENT Symptoms (Recalled from RN notes): No Resp Symptoms (Recalled from RN notes): No Skin Symptoms (Recalled from RN notes): No MS Symptoms (Recalled from RN notes): No Functional Status (Recalled from RN notes): na - History of Present Illness Provider Complaint: She c/o feeling bad since yesterday. She c/o sinus congestion, scratchy throat and chilling. She also has had some low back pain over the past 1 week that she thought it might be UTI also. - Related Data Home Medications Medication Instructions Recorded Confirmed Vit 91/Iron/Folic/Dha 1 each PO DAILY 01/16/20 01/24/21 [ + Dha Combo Pack] Allergies Allergy/AdvReac Type Severity Reaction Status Date / Time promethazine [PROMETHAZINE] Allergy Unknown Verified 01/24/21 09:47 Sulfa (Sulfonamide Allergy Unknown Verified 01/24/21 09:47 Antibiotics) [SULFA (SULFONAMIDE ANTIBIOTICS)] - Worker's Comp Is this a Worker's Comp case?: No [facility] History - Hepatitis A Screen Drug use history?: No High risk sexual behaviors?: No History of sexually transmitted infection?: No Currently employed?: No Childcare worker?: No Do you have indoor plumbing?: Yes Do you have electricity?: Yes Attestation statement:: This patient has been screened for Hepatitis A risk factors. I have reviewed the patient's past medical history: Yes Medical History: Reports:: Ulcer Denies:: Cancer, Diabetes Mellitus Type 1, Diabetes Mellitus Type 2, Hypertension, MRSA Other Medical History: Reports: Other Laterality Cases: Bilate
[2021-02-01 12:28] VITALS: BP 109/79; PULSE 102; RESP 18; TEMP 37.2; O2SAT 99
== END 2021-02-01 12:30 | disposition home or self-care (01) ==
PROVIDERS: Emergency Provider Nurse Practitioner Family; PCP Family Medicine
DX: U07.1 COVID-19 (principal); B34.9 Viral infection, unspecified
CPT/HCPCS: 81003; 87086; 99202; C9803; G0463; U0003; U0005

== ENCOUNTER → 2021-02-14 09:36 | Outpatient (CLI) | payer BC, OTHER, SELFPAY ==
--- NOTE | 2021-02-14 09:37 | CA_ITS ---
APPROVED REPORT EXAM: Comprehensive 2D, Doppler, and color-flow Echocardiogram Meat Smoker: Audra Golden RVT Ht: 5 ft 7 in Wt: 128lbs BSA: 1.67 BP: 111/68 mmHg Indications: SOA,TACHYCARDIA, 2D Dimensions LVOT 1.75 cm (M/F) 1.5-2.5 LA Volume 25.80 mL LA Volume Index 15.44 mL/m2 (M/F) 16-34 M-Mode Dimensions RVDd 2.52 cm (0.9-2.6) LA Diam 3.55 cm (1.9-4.0) LVDd 4.74 cm (3.5-5.7) Ao Diam 2.39 cm (2.0-3.7) LVDs 3.07 cm (3.5-5.7) IVSd 0.76 cm (0.6-1.1) PWd 0.64 cm (0.6-1.1) EF (Teich) 64.60% FS 35.20% EDV (Teich) 104.40 mL TAPSE 1.72 (<1.7) ESV (Teich) 37.00 mL LV Diastology E Decel Time 150.00 (160-240 msec) E/A Ratio 2.4 MED E' 11.40 (< 7 cm/sec) E'/MED E' Ratio 8.14 (>14) LAT E' 18.50 (<10 cm/sec) E/LAT E' Ratio 5.02 (>14) Mitral Valve MV E Max Hemant. 93.00 (40-130 cm/s) MV A Velocity 38.00 (40-130 cm/s) E/A Ratio 2.42 MV Decel. Time 150.00 (160-240 ms) MV PHT 44.00 ms Pulmonary Valve PV Peak Velocity 91.00 (50-150 cm/s) Left Ventricle Left atrium is normal size, left ventricle is normal size, there is no concentric left ventricular hypertrophy, visually estimated ejection fraction 55% with no regional wall motion abnormality. Diastolic parameters are within normal range. Right Ventricle Right atrium and right ventricle are normal size and contractility. Aortic Valve Aortic valve is grossly normal, there is no aortic stenosis or aortic insufficiency. Mitral Valve Mitral valve grossly normal, there is no mitral stenosis or mitral regurgitation. Tricuspid Valve Tricuspid valve is grossly normal, there is no significant tricuspid regurgitation noted. Pulmonic Valve Pulmonic valve is grossly normal Great Vessels Aortic root is normal size. Inferior vena cava is normal size with normal inspiratory collapse. Pericardium No significant pericardial effusion noted. Conclusion 1. Normal left ventricular size, preserved left ventricular systolic function, visually estimated ejection fraction 55% with no regional wall motion abnormality. Diastolic parameters are within normal range. 2. No significant pericardial effusion noted, inferior vena cava is normal size with normal inspiratory collapse. Electronically signed by : Miah De Leno MD 02/14/2021 12:47:50
== END ==
PROVIDERS: PCP Internal Medicine; Visit Provider Internal Medicine Cardiovascular Disease
DX: R07.89 Other chest pain (principal); Z3A.17 17 weeks gestation of pregnancy
CPT/HCPCS: 93306

== ENCOUNTER → 2021-03-03 09:04 | Outpatient (CLI) | payer BC, OTHER, SELFPAY ==
[2021-03-03 09:23] LABS: Basophils % 0.2 % (0.1-2.0); Eosinophils # 0.1 K/mm3 (0.0-0.4); Eosinophils % 1.4 % (0.1-12.0); Hematocrit 35.8 % (37.0-47.0); Hemoglobin 11.8 g/dL (12.2-16.2); Lymphocytes # 1.7 K/mm3 (0.7-4.5); Lymphocytes % 20.4 % (10-50); Mean Corpuscular Hemoglobin 32.5 pg (27.0-31.2); Mean Corpuscular Volume 98.5 fl (81-99); Mean Platelet Volume 8.2 fl (7.4-10.4); Monocytes # 0.4 K/mm3 (0.1-1.0); Monocytes % 4.5 % (1.7-9.3); Neutrophils # 6.1 K/mm3 (1.8-7.8); Neutrophils % 73.5 % (37.0-80.0); Platelet Count 157 K/mm3 (142-424); Red Blood Count 3.63 M/mm3 (4.20-5.40); Red Cell Distribution Width 14.3 % (11.5-17.5); White Blood Count 8.3 K/mm3 (4.8-10.8)
[2021-03-03 09:34] LABS: Glucose,Fasting 86 mg/dl (74-100)
[2021-03-03 11:21] LABS: Glucose 1 Hour 112 mg/dL (74-100)
== END ==
PROVIDERS: Visit Provider Obstetrics & Gynecology
DX: Z34.83 Encounter for supervision of other normal pregnancy, third trimester (principal); Z3A.28 28 weeks gestation of pregnancy
CPT/HCPCS: 36415; 82951; 85025; 86850

== ENCOUNTER 2021-04-29 09:00 | Emergency (ER) | payer BC, OTHER, SELFPAY ==
[2021-04-29 09:23] VITALS: BP 126/77; PULSE 106; RESP 16; TEMP 36.6; O2SAT 98; BMI 24.2
--- NOTE | 2021-04-29 09:38 | HMH.EDUTC ---
[facility] [place] Disposition Clinical Impression: Strep throat Disposition: Home, Self-Care Condition on Discharge: Good Instructions: Strep Throat, DI for Strep Throat Additional Instructions: Drink plenty of fluids. Take tylenol or ibuprofen for pain or fever. Take the medications as directed. Follow up with your regular doctor. GO TO THE ER FOR ANY WORSENING SYMPTOMS Throw your tooth brush away and get a new one. Prescriptions: Azithromycin [Z-Chaparro 250mg Tab*] 250 mg PO UD DOSE PK #6 tab Transmission Status: Received by [id number] Referrals: Brady Ramirez [Primary Care Provider] - Time of Disposition: 10:03 Medical Decision Making - Medical Records Medical records reviewed: No: I reviewed the patient's medical records. - Erasmo Inquiry Pt receiving controlled substance: No Vital Signs: 04/29/21 09:23 04/29/21 09:50 Temperature 97.9 F 97.9 F Temperature Source Oral Pulse Rate 106 H Pulse Rate [Left] 106 H Respiratory Rate 16 16 Blood Pressure 126/77 Blood Pressure [Right Arm] 126/77 Blood Pressure Mean [Right Arm] 93 02 Sat by Pulse Oximetry 98 - Lab Data Lab results reviewed: Yes: I reviewed the patient's lab results. Lab Results 04/29/21 09:38: Strep Scn Rapid Clinic Positive A [facility] [place] HPI - General Stated complaint: sore throat, congestion Time Seen by Provider: 04/29/21 09:38 Mode of Arrival: Ambulatory Source of Information: Patient Limitations: No Limitations Description of Symptoms (Recalled from Triage Doc. by RN): pt c/o cough, congestion and sore throat. pt has been around her niece who is strep positive. pt is 30wks . HEENT Symptoms (Recalled from RN notes): Yes (congestion and sore throat) Resp Symptoms (Recalled from RN notes): Yes (cough) Skin Symptoms (Recalled from RN notes): No MS Symptoms (Recalled from RN notes): No Functional Status (Recalled from RN notes): wnl - History of Present Illness Provider Complaint: She c/o sore throat for the past 2 days. She has been exposed to strep throat in her house. She is 30 weeks . - Related Data Home Medications Medication Instructions Recorded Confirmed Vit 91/Iron/Folic/Dha 1 each PO DAILY 01/16/20 01/24/21 [ + Dha Combo Pack] Previous Rx's Medication Instructions Recorded Azithromycin [Z-Chaparro 250mg Tab*] 250 mg PO UD DOSE PK #6 tab 04/29/21 Allergies Allergy/AdvReac Type Severity Reaction Status Date / Time promethazine [PROMETHAZINE] Allergy Unknown Verified 01/24/21 09:47 Sulfa (Sulfonamide Allergy Unknown Verified 01/24/21 09:47 Antibiotics) [SULFA (SULFONAMIDE ANTIBIOTICS)] - Worker's Comp Is this a Worker's Comp case?: No [facility] History - Hepatitis A Screen Drug use history?: No High risk sexual behaviors?: No History of sexually transmitted infection?: No Currently employed?: No Childcare worker?: No Do you have indoor plumbing?: Yes Do you have electricity?: Yes Attestation statement:: This patient has been screened for Hepatitis A risk factors. I have reviewed the patient's past medical history: Yes Medical History: Reports:: Ulcer Denies:: Cancer, Diabetes Mellitus Type 1, Diabetes Mellitus Type 2, Hypertension, MRSA Other Medical History: Reports: Other Laterality Cases: Bilateral: Myringotomy (Ear Tubes), Tonsillectomy Other Surgeries: Yes: No Previous Surgery, Diagnostic Lap, Other. No: Amputation: No Fractures: No - Social History Smoking Status: Never smoker Alcohol Intake: never Substance Use Type: denies use Occupational Status: employed Housing: house Household Members: significant other Family Hx:: Cancer, Diabetes, Stroke, Hypertension ROS Obtained: Yes All systems reviewed & no additional complaints - Constitutional Constitutional: Reports as per HPI - Eyes Eyes: Denies eye discharge - ENT Ears, Nose, Mouth, and Throat: Reports as per HPI - Cardiovascular
[2021-04-29 09:39] LABS: UTC Strep Screen (Rapid) Positive (Negative)
[2021-04-29 09:50] VITALS: BP 126/77; PULSE 106; RESP 16; TEMP 36.6
== END 2021-04-29 10:10 | disposition home or self-care (01) ==
PROVIDERS: Emergency Provider Nurse Practitioner Family; PCP Internal Medicine
DX: J02.0 Streptococcal pharyngitis (principal); Z3A.30 30 weeks gestation of pregnancy; Z88.2 Allergy status to sulfonamides
CPT/HCPCS: 87880; 99202; G0463

== ENCOUNTER → 2021-12-15 10:13 | Outpatient (CLI) | payer BC, OTHER, SELFPAY ==
[2021-12-15 11:38] LABS: HCG,Quantitative < 2 mIU/ml (0-5.42)
== END ==
PROVIDERS: PCP Family Medicine; Visit Provider Family Medicine
DX: N91.2 Amenorrhea, unspecified (principal)
CPT/HCPCS: 36415; 84702

== ENCOUNTER → 2022-07-09 08:17 | Outpatient (CLI) | payer BC, OTHER, SELFPAY ==
--- NOTE | 2022-07-09 08:17 | MR_ITS ---
FINAL REPORT CLINICAL HISTORY: Eval for mass, lesion. Migraine headache with dizziness and blurred vision FINDINGS: Multiplanar MR imaging of the brain was performed without and with contrast. There is no evidence of intracranial hemorrhage or mass. No abnormal extra-axial fluid collection is seen. The ventricular size is within normal limits. There is no evidence of shift of the midline structures. The posterior fossa and brainstem have an unremarkable appearance. No area of abnormal restricted diffusion is identified. No abnormal contrast enhancement is seen. Normal major vessel vascular flow voids are noted. There is mucosal thickening of the left sphenoid sinus. IMPRESSION: No acute intracranial abnormality identified. Reviewed, Interpreted and Dictated by Alex Sandhu III, MD Transcribed by Parris Funk Authenticated and [facility]
== END ==
PROVIDERS: PCP Physician Assistant; Visit Provider Nurse Practitioner Family
DX: R51.9 Headache, unspecified (principal)
CPT/HCPCS: 70553; A9576

== ENCOUNTER → 2022-07-10 10:44 | Outpatient (CLI) | payer BC, OTHER, SELFPAY | PROVIDERS: PCP Physician Assistant; Visit Provider Nurse Practitioner Family | DX: I95.9 Hypotension, unspecified (principal); R00.2 Palpitations | CPT/HCPCS: 93270 ==

== ENCOUNTER → 2022-07-14 09:30 | Outpatient (CLI) | payer BC, OTHER, SELFPAY ==
--- NOTE | 2022-07-14 09:33 | CA_ITS ---
APPROVED REPORT EXAM: Comprehensive 2D, Doppler, and color-flow Echocardiogram Factory Worker: Maria Ny, RCS, RVS Ht: 5 ft 6 in Wt: 142lbs BSA: 1.73 BP: 120/71 mmHg Indications: SOA, Palpitations 2D Dimensions Aortic Root 2.74 cm LA Volume 31.40 mL Left Atrium 1.69 cm LA Volume Index 18.259127 mL/m2 (M/F) 16-34 LVOT 1.97 cm (M/F) 1.5-2.5 M-Mode Dimensions RVDd 2.44 cm (0.9-2.6) LA Diam 2.79 cm (1.9-4.0) LVDd 5.07 cm (3.5-5.7) Ao Diam 3.01 cm (2.0-3.7) LVDs 3.07 cm (3.5-5.7) IVSd 0.66 cm (0.6-1.1) PWd 0.56 cm (0.6-1.1) EF (Teich) 69.70% EPSs 0.35 cm FS 39.40% EDV (Teich) 122.10 mL TAPSE 1.68 (<1.7) ESV (Teich) 37.00 mL LV Diastology E Decel Time 240.00 (160-240 msec) E/A Ratio 1.69 MED E' 13.10 (< 7 cm/sec) MED A' 6.90 cm/s E'/MED E' Ratio 5.43 (>14) LAT E' 17.60 (<10 cm/sec) LAT A' 6.30 cm/s E/LAT E' Ratio 4.04 (>14) Aortic Valve LVOT Max 102.00 (70-110 cm/s) LVOT VTI 19.32 cm Mitral Valve MV A Velocity 42.00 (40-130 cm/s) E/A Ratio 1.69 MV Decel. Time 240.00 (160-240 ms) Pulmonary Valve PV Peak Velocity 98.00 (50-150 cm/s) Left Ventricle Left atrium is normal size left ventricle is normal size, estimated ejection fraction 55% with no regional wall motion abnormality, diastolic parameters are within normal range. Right Ventricle Right atrium and right ventricle are normal size and contractility. Aortic Valve Aortic valve is grossly normal there is no aortic stenosis or aortic insufficiency. Mitral Valve Mitral valve is normal, there is no significant mitral regurgitation. Tricuspid Valve Tricuspid valve grossly normal, there is no significant tricuspid regurgitation. Pulmonic Valve Pulmonic valve is poorly visualized. Great Vessels Aortic root is normal size. Inferior vena cava is normal size with normal inspiratory collapse. Pericardium No significant pericardial effusion noted. Conclusion 1. Normal left ventricular size, preserved left ventricular systolic function, estimated ejection fraction 55% with no regional wall motion abnormality, diastolic parameters are within normal range. 2. No significant pericardial effusion noted. 3. Inferior vena cava is normal size with normal inspiratory collapse. Electronically signed by : Miah De Leon MD 07/14/2022 18:57:10
== END ==
PROVIDERS: PCP Physician Assistant; Visit Provider Nurse Practitioner Family
DX: R00.2 Palpitations (principal); I95.9 Hypotension, unspecified
CPT/HCPCS: 93306

== ENCOUNTER → 2022-09-08 12:24 | Outpatient (CLI) | payer BC, OTHER, SELFPAY ==
[2022-09-08 13:59] LABS: HCG,Quantitative 448 mIU/ml (0-5.42)
[2022-09-09 11:30] LABS: Progesterone 21.7 ng/mL (.)
== END ==
PROVIDERS: PCP Physician Assistant; Visit Provider Obstetrics & Gynecology
DX: N92.6 Irregular menstruation, unspecified (principal); Z32.00 Encounter for pregnancy test, result unknown
CPT/HCPCS: 36415; 84144; 84702

== ENCOUNTER → 2022-09-10 07:39 | Outpatient (CLI) | payer BC, OTHER, SELFPAY ==
[2022-09-10 08:48] LABS: HCG,Quantitative 792 mIU/ml (0-5.42)
== END ==
PROVIDERS: PCP Physician Assistant; Visit Provider Obstetrics & Gynecology
DX: N92.6 Irregular menstruation, unspecified (principal); Z32.00 Encounter for pregnancy test, result unknown
CPT/HCPCS: 36415; 84702

== ENCOUNTER → 2022-10-19 07:40 | Outpatient (CLI) | payer BC, OTHER, SELFPAY ==
[2022-10-19 08:40] LABS: Basophils % 0.1 % (0.1-2.0); Eosinophils % 0.8 % (0.1-12.0); Hematocrit 39.4 % (37.0-47.0); Hemoglobin 12.8 g/dL (12.2-16.2); Lymphocytes # 1.3 K/mm3 (0.7-4.5); Mean Corpuscular HGB Conc 32.6 g/dL (31.8-35.4); Mean Corpuscular Hemoglobin 29.8 pg (27.0-31.2); Mean Corpuscular Volume 91.4 fl (81-99); Mean Platelet Volume 9.2 fl (7.4-10.4); Monocytes # 0.3 K/mm3 (0.1-1.0); Neutrophils # 3.7 K/mm3 (1.8-7.8); Platelet Count 129 K/mm3 (142-424); Red Blood Count 4.31 M/mm3 (4.20-5.40); Red Cell Distribution Width 14.6 % (11.5-17.5); White Blood Count 5.4 K/mm3 (4.8-10.8)
[2022-10-20 12:09] LABS: Rapid Plasma Reagin Ab Titer Non Reactive (NonRea<1:1)
[2022-11-01 23:18] LABS: HIV Screen 4th Generation wRfx Non Reactive; Hepatitis B Surface Antigen Negative; Hepatitis C Antibody Non Reactive; Rubella Antibodies, IgG 1.66
== END ==
PROVIDERS: PCP Physician Assistant; Visit Provider Obstetrics & Gynecology
DX: Z34.90 Encounter for supervision of normal pregnancy, unspecified, unspecified trimester (principal)
CPT/HCPCS: 36415; 85025; 86593; 86703; 86762; 86850; 87340; 87380; G0432

== ENCOUNTER → 2022-10-20 23:32 | Outpatient (CLI) | payer BC, OTHER, SELFPAY ==
[2022-10-23 14:22] LABS: Neisseria gonorrhoeae, NAA Negative (Negative)
== END ==
PROVIDERS: PCP Physician Assistant; Visit Provider Obstetrics & Gynecology
DX: Z34.90 Encounter for supervision of normal pregnancy, unspecified, unspecified trimester (principal)
CPT/HCPCS: 87086; 87491; 87591

== ENCOUNTER → 2022-10-21 14:42 | Outpatient (CLI) | payer BC, OTHER, SELFPAY | PROVIDERS: PCP Physician Assistant; Visit Provider Nurse Practitioner Family | DX: R00.2 Palpitations (principal) | CPT/HCPCS: 93270 ==

== ENCOUNTER → 2022-11-06 10:34 | Outpatient (CLI) | payer BC, OTHER, SELFPAY ==
--- NOTE | 2022-11-06 10:37 | US_ITS ---
PROCEDURE: US OB <= 14 WEEKS FETUS CLINICAL INDICATION: vaginal bleeding in early COMPARISON: No exams were available for comparison FINDINGS: From her last menstrual period she is 13weeks. An intrauterine gestational sac is present with a pole with a crown-rump length of 6.61cm correlating to gestational age of 13weeks. heart tones are present with an FHR of 169bpm. The fetus has a cystic area in the posterior neck. It measures 0.74 cm. There is a subtle widening of the spinal column in the neck. On examination of the posterior brain there appears to be a banana sign. The placenta is posterior and low-lying. It measures approximately 16 mm from the internal os. In the fundus there is an area that measures 2.7 cm x 1.7 cm possibly consistent with bleeding. There are cystic areas adjacent to the placenta in the fundus. These could represent small areas of hemorrhage. The right ovary is seen and appears normal. The left ovary is seen and appears normal. There is no fluid in the cul-de-sac. IMPRESSION: 1. Estimated due date by Ultrasound is 05/14/2023. 2. heart rate activity is seen. 3. The fetus has a cystic area in the neck measuring 0.74 cm. There is also a banana sign in the posterior fossa. These could be consistent with a Chiari malformation or spina bifida. 4. There is a cystic area in the fundal aspect of the placenta possibly as a result of hemorrhage . The placenta is low lying. 5. Both ovaries are seen and appear normal. 6. Suggest NIPT testing if this has not already been done and consult to [facility]. Dictated by: Mario Bhagat MD 11/07/2022 10:11 Mario Bhagat MD in [place] 11/07/2022 10:11
== END ==
PROVIDERS: PCP Physician Assistant; Visit Provider Obstetrics & Gynecology
DX: O20.9 Hemorrhage in early pregnancy, unspecified (principal); Z3A.14 14 weeks gestation of pregnancy
CPT/HCPCS: 76801

== ENCOUNTER → 2022-11-27 09:55 | Outpatient (CLI) | payer BC, OTHER, SELFPAY ==
--- NOTE | 2022-11-27 09:55 | US_ITS ---
PROCEDURE: US OB >= 14 WEEKS FETUS CLINICAL INDICATION: placenta previa COMPARISON: US US OB <= 14 WEEKS FETUS from 11/06/2022 FINDINGS: The following parameters are obtained: From her established due date she is 16weeks 0 days. Viable fetus in the breech presentation with a posterior placenta grade 1. There continues to be several small placental lakes. The placenta is 2.8 cm from the internal os and is no longer previa. heart rate: 153bpm bpm. No obvious anomalies evident. profile seen, the previously described cyst in the neck is not seen today. IMPRESSION: 1. Viable fetus in the breech presentation with a posterior placenta grade 1. There are several small persistent placental lakes. 2. The previously described placenta previa has resolved and the placenta is approximately 2.8 cm from the internal cervical os. 3. The cyst seen on the neck at 13 weeks is not seen on today's examination. Dictated by: Mario Bhagat MD 11/28/2022 15:20 Mario Bhagat MD in [place] 11/28/2022 15:20
== END ==
LOC: RAD 09:55
PROVIDERS: PCP Physician Assistant; Visit Provider Nurse Practitioner Obstetrics & Gynecology
DX: O44.02 Complete placenta previa NOS or without hemorrhage, second trimester (principal); Z3A.15 15 weeks gestation of pregnancy
CPT/HCPCS: 76805

== ENCOUNTER 2022-12-18 16:19 | Outpatient (CLI) | payer BC, OTHER, SELFPAY ==
[2022-12-18 16:35] VITALS: BP 112/69; PULSE 86; RESP 16; TEMP 36.7; O2SAT 98; BMI 23.1
== END 2022-12-18 17:33 | disposition home or self-care (01) ==
LOC: OBOUT 16:22 → OB 16:23
PROVIDERS: PCP Obstetrics & Gynecology; Visit Provider Obstetrics & Gynecology
DX: O26.892 Other specified pregnancy related conditions, second trimester (principal); Z3A.19 19 weeks gestation of pregnancy; E86.0 Dehydration
CPT/HCPCS: 96365; G0463

== ENCOUNTER 2023-01-27 09:05 | Outpatient (CLI) | payer BC, OTHER, SELFPAY ==
[2023-01-27 10:25] VITALS: BP 120/62; PULSE 88; RESP 18; TEMP 36.7; O2SAT 99; BMI 24.1
== END 2023-01-27 10:30 | disposition home or self-care (01) ==
LOC: OBOUT 09:06 → OB 09:07
PROVIDERS: PCP Physician Assistant; Visit Provider Obstetrics & Gynecology
DX: O36.8120 Decreased fetal movements, second trimester, not applicable or unspecified (principal); Z3A.24 24 weeks gestation of pregnancy
CPT/HCPCS: G0463

== ENCOUNTER → 2023-02-03 07:03 | Outpatient (CLI) | payer BC, OTHER, SELFPAY ==
[2023-02-03 07:18] LABS: Basophils % 0.2 % (0.1-2.0); Eosinophils # 0.2 K/mm3 (0.0-0.4); Eosinophils % 2.1 % (0.1-12.0); Hematocrit 33.3 % (37.0-47.0); Hemoglobin 10.9 g/dL (12.2-16.2); Lymphocytes # 1.7 K/mm3 (0.7-4.5); Lymphocytes % 21.5 % (10-50); Mean Corpuscular HGB Conc 32.7 g/dL (31.8-35.4); Mean Corpuscular Hemoglobin 31.9 pg (27.0-31.2); Mean Corpuscular Volume 97.5 fl (81-99); Mean Platelet Volume 9.3 fl (7.4-10.4); Monocytes # 0.4 K/mm3 (0.1-1.0); Monocytes % 5.7 % (1.7-9.3); Neutrophils # 5.5 K/mm3 (1.8-7.8); Neutrophils % 70.5 % (37.0-80.0); Platelet Count 151 K/mm3 (142-424); Red Blood Count 3.41 M/mm3 (4.20-5.40); Red Cell Distribution Width 14.3 % (11.5-17.5); White Blood Count 7.8 K/mm3 (4.8-10.8)
[2023-02-03 08:13] LABS: Glucose,Fasting 90 mg/dl (74-100)
[2023-02-03 09:03] LABS: Glucose 1 Hour 129 mg/dL (74-100)
== END ==
PROVIDERS: PCP Physician Assistant; Visit Provider Obstetrics & Gynecology
DX: Z34.92 Encounter for supervision of normal pregnancy, unspecified, second trimester (principal); Z3A.25 25 weeks gestation of pregnancy
CPT/HCPCS: 36415; 82951; 85025

== ENCOUNTER 2023-02-18 10:57 | Outpatient (CLI) | payer BC, OTHER, SELFPAY ==
[2023-02-18 12:21] VITALS: BMI 24.5
[2023-02-18 12:29] LABS: Microscopic, Urine URINE MICROSCOPIC (MICROSCOPIC)
[2023-02-18 12:45] VITALS: BP 122/76; PULSE 88; RESP 18; TEMP 37.1; O2SAT 98; BMI 24.5
[2023-02-18 13:00] LABS: Appearance,Urine CLEAR (Clear); Bilirubin,Urine Negative (Negative); Blood, Urine Negative (Negative); Color,Urine YELLOW (Yellow); Glucose,Urine (UA) Negative (Negative); Ketones,Urine Negative (Negative); Leukocyte Esterase,Urine Negative (Negative); Nitrate,Urine Negative (Negative); Protein,Urine Negative (Negative); Specific Gravity, Urine 1.025 (1.005-1.030)
[2023-02-18 13:05] LABS: Squamous Epithelial Cell,Urine Occasional #/hpf (0-5)
[2023-02-18 16:34] LABS: Amphetamine/Metha Screen,Urine Negative ng/ml (<1000); Benzodiazepines Screen,Urine Negative ng/ml (<200)
[2023-02-18 16:35] LABS: Barbiturates Screen,Urine Negative ng/ml (<200); Cannabinoid Screen,Urine Negative ng/ml (<50)
[2023-02-18 16:36] LABS: Cocaine Screen,Urine Negative ng/ml (<300)
[2023-02-18 16:37] LABS: Methadone Screen,Urine Negative ng/ml (<300); Opiate Screen,Urine Negative ng/ml (<300)
[2023-02-18 16:38] LABS: Phencyclidine Screen,Urine Negative ng/ml (<25)
== END 2023-02-18 13:11 | disposition home or self-care (01) ==
LOC: OBOUT 10:58 → OB 10:59
PROVIDERS: PCP Physician Assistant; Visit Provider Nurse Practitioner Obstetrics & Gynecology
DX: O26.892 Other specified pregnancy related conditions, second trimester (principal); Z3A.27 27 weeks gestation of pregnancy
CPT/HCPCS: 59025; 80305; 81001; G0463

== ENCOUNTER 2023-03-01 07:30 | Outpatient (CLI) | payer BC, OTHER, SELFPAY ==
[2023-03-01 07:56] VITALS: BMI 25.3
[2023-03-01 08:03] LABS: Microscopic, Urine URINE MICROSCOPIC (MICROSCOPIC)
[2023-03-01 08:05] LABS: Appearance,Urine SL CLOUDY (Clear); Blood, Urine Negative (Negative); Color,Urine AMBER (Yellow); Glucose,Urine (UA) Negative (Negative); Ketones,Urine 2+ (Negative); Leukocyte Esterase,Urine Negative (Negative); Nitrate,Urine Negative (Negative); PH,Urine 6.5 (5.0-8.5); Protein,Urine TRACE (Negative); Specific Gravity, Urine >= 1.030 (1.005-1.030)
[2023-03-01 08:12] LABS: Bilirubin,Urine 2+ (Negative)
[2023-03-01 08:16] LABS: Bacteria,Urine Trace /lpf; Mucus,Urine Trace /lpf
[2023-03-01 08:21] LABS: Barbiturates Screen,Urine Negative ng/ml (<200)
[2023-03-01 08:22] LABS: Amphetamine/Metha Screen,Urine Negative ng/ml (<1000); Cannabinoid Screen,Urine Negative ng/ml (<50)
[2023-03-01 08:23] LABS: Benzodiazepines Screen,Urine Negative ng/ml (<200)
[2023-03-01 08:24] LABS: Cocaine Screen,Urine Negative ng/ml (<300); Methadone Screen,Urine Negative ng/ml (<300)
[2023-03-01 08:25] LABS: Opiate Screen,Urine Negative ng/ml (<300); Phencyclidine Screen,Urine Negative ng/ml (<25)
[2023-03-01 08:56] VITALS: BP 117/63; PULSE 109; RESP 18; TEMP 37.2; O2SAT 100; BMI 25.3
== END 2023-03-01 11:05 | disposition home or self-care (01) ==
LOC: OBOUT 07:32 → OB 07:32
PROVIDERS: PCP Physician Assistant; Visit Provider Obstetrics & Gynecology
DX: O26.893 Other specified pregnancy related conditions, third trimester (principal); Z3A.29 29 weeks gestation of pregnancy; R00.0 Tachycardia, unspecified; G43.909 Migraine, unspecified, not intractable, without status migrainosus; H53.8 Other visual disturbances
CPT/HCPCS: 59025; 80305; 81001; 96365; G0463

== ENCOUNTER 2023-03-01 18:55 | Outpatient (CLI) | payer BC, OTHER, SELFPAY ==
[2023-03-01 19:10] VITALS: BP 114/60; PULSE 122; RESP 18; TEMP 37.5; O2SAT 97; BMI 25.3
== END 2023-03-01 20:45 | disposition home or self-care (01) ==
LOC: OBOUT 18:56 → OB 18:56
PROVIDERS: PCP Physician Assistant; Visit Provider Obstetrics & Gynecology
DX: O26.893 Other specified pregnancy related conditions, third trimester (principal); Z3A.29 29 weeks gestation of pregnancy; G43.909 Migraine, unspecified, not intractable, without status migrainosus
CPT/HCPCS: 59025; 96365; G0463

== ENCOUNTER → 2023-03-16 15:45 | Outpatient (CLI) | payer BC, OTHER, SELFPAY | PROVIDERS: PCP Physician Assistant; Visit Provider Physician Assistant | DX: R00.0 Tachycardia, unspecified (principal) | CPT/HCPCS: 93270 ==

== ENCOUNTER → 2023-04-07 12:50 | Outpatient (CLI) | payer BC, OTHER, SELFPAY ==
--- NOTE | 2023-04-07 12:50 | US_ITS ---
PROCEDURE: US OB BIOPHYSICAL PROFILE CLINICAL INDICATION: pelvic pain COMPARISON: FINDINGS: Transabdominal sonographic images of the uterus were obtained. From her established due date she is 34weeks 5days. The following parameters are obtained: Viable fetus in the cephalic presentation with a posterior placenta grade 2 Average ultrasound age is 35weeks 5days. Estimated due date by ultrasound is 05/07/2023. Estimated weight is 5lb 14oz, 2684 grams. Cervix measures 2.9 cm. heart rate: 128bpm bpm. BPD: 35 weeks 3 days HC: 36 weeks 0 days AC: 35 weeks 0 days FL: 36 weeks 2 days HC/AC: 1.03 FL/BPD: 0.81 FL/AC: 0.23 68 percentile Amniotic fluid index: 10.26cm, MVP 3.7 cm. Qualitative AFV: 2 breathing movements: 2 Gross body movements: 2 Tone: 2 Biophysical profile score: 8 No obvious anomalies evident.Kidneys, profile, nasion, four-chamber heart, three-vessel cord appear normal. Mild right renal pelvis dilation measuring 5.9 mm. IMPRESSION: 1. Viable fetus in the cephalic presentation with posterior placenta grade 2. 2. The fluid is within normal limits with an amniotic fluid index of 10.26 cm. MVP 3.7 cm. 3. Biophysical profile 8/8 with good breathing movement and good movement seen. 4. There has been good interval growth with the fetus currently 68th percentile. 5. Mild right renal pelvis dilation of 5.9 mm. Dictated by: Mario Bhagat MD 04/09/2023 10:30 Mario Bhagat MD in [place] 04/09/2023 10:30
== END ==
PROVIDERS: PCP Physician Assistant; Visit Provider Obstetrics & Gynecology
DX: R10.2 Pelvic and perineal pain (principal)
CPT/HCPCS: 76816; 76819

== ENCOUNTER 2023-04-13 13:59 | Outpatient (CLI) | payer BC, OTHER, SELFPAY ==
[2023-04-13 14:23] VITALS: BP 131/77; PULSE 110; RESP 16; TEMP 36.8; O2SAT 100; BMI 25.8
--- NOTE | 2023-04-13 14:33 | PC.NURSE ---
UA and Amnisure sent to lab.
[2023-04-13 14:36] LABS: Microscopic, Urine URINE MICROSCOPIC (MICROSCOPIC)
[2023-04-13 14:41] LABS: Appearance,Urine CLEAR (Clear); Bilirubin,Urine Negative (Negative); Blood, Urine Negative (Negative); Color,Urine YELLOW (Yellow); Glucose,Urine (UA) TRACE (Negative); Ketones,Urine Negative (Negative); Leukocyte Esterase,Urine 1+ (Negative); Nitrate,Urine Negative (Negative); PH,Urine 6.5 (5.0-8.5); Protein,Urine Negative (Negative)
[2023-04-13 14:48] LABS: Fetal Membrane Rupture (Rapid) Negative (Negative)
[2023-04-13 14:53] LABS: Benzodiazepines Screen,Urine Negative ng/ml (<200)
[2023-04-13 14:54] LABS: Amphetamine/Metha Screen,Urine Negative ng/ml (<1000); Barbiturates Screen,Urine Negative ng/ml (<200)
[2023-04-13 14:55] LABS: Bacteria,Urine Trace /lpf; Cannabinoid Screen,Urine Negative ng/ml (<50); Squamous Epithelial Cell,Urine Occasional #/hpf (0-5)
[2023-04-13 14:56] LABS: Cocaine Screen,Urine Negative ng/ml (<300); Methadone Screen,Urine Negative ng/ml (<300)
[2023-04-13 14:57] LABS: Phencyclidine Screen,Urine Negative ng/ml (<25)
[2023-04-13 14:58] LABS: Opiate Screen,Urine Negative ng/ml (<300)
== END 2023-04-13 16:21 | disposition home or self-care (01) ==
LOC: OBOUT 14:00 → OB 14:01
PROVIDERS: PCP Physician Assistant; Visit Provider Obstetrics & Gynecology
DX: O36.8130 Decreased fetal movements, third trimester, not applicable or unspecified (principal); Z3A.35 35 weeks gestation of pregnancy
CPT/HCPCS: 59025; 80305; 81001; 84112; 87086; G0463

== ENCOUNTER → 2023-04-16 08:02 | Outpatient (CLI) | payer BC, OTHER, SELFPAY ==
--- NOTE | 2023-04-16 08:03 | CA_ITS ---
APPROVED REPORT EXAM: Comprehensive 2D, Doppler, and color-flow Echocardiogram Oil Rigger: Jennifer Garcia RDCS Ht: 5 ft 6 in Wt: 164lbs BSA: 1.84 BP: 122/68 mmHg Indications: CP SOA PALPS 36WK M-Mode Dimensions RVDd 2.28 cm (0.9-2.6) LA Diam 2.73 cm (1.9-4.0) LVDd 5.39 cm (3.5-5.7) LVDs 3.75 cm (3.5-5.7) IVSd 0.57 cm (0.6-1.1) PWd 0.75 cm (0.6-1.1) EF (Teich) 57.40% FS 30.40% EDV (Teich) 140.70 mL TAPSE 2.15 (<1.7) ESV (Teich) 60.00 mL LV Diastology E Decel Time 133 (160-240 msec) E/A Ratio 1.4 Mitral Valve MV E Max Hemant. 71.0 (40-130 cm/s) MV A Velocity 52.0 (40-130 cm/s) E/A Ratio 1.36 MV PHT 39.0 ms Left Ventricle The left ventricle is normal size. The left ventricular systolic function is normal. The left ventricular ejection fraction is within the normal range. There is normal left ventricular wall thickness. There is normal LV segmental wall motion. The left ventricular diastolic function is normal. LVEF is 55%. Right Ventricle The right ventricle is mildly dilated. The right ventricular systolic function is normal. Atria The left atrium size is normal. The right atrium size is normal. There is no Doppler evidence of interatrial shunt. Aortic Valve The aortic valve opens well. There is no aortic valvular stenosis. No aortic regurgitation is present. Mitral Valve The mitral valve is normal in structure. No evidence of mitral valve stenosis. There is no mitral valve regurgitation noted. Tricuspid Valve The tricuspid valve leaflets are thin and pliable. Trace tricuspid regurgitation. There is insufficient TR jet to estimate RVSP. Pulmonic Valve The pulmonary valve is normal in structure. Trace pulmonic regurgitation. Great Vessels The aortic root is normal in size. The ascending aorta is normal in size. IVC is normal in size and collapses >50% with inspiration. Pericardium There is no pericardial effusion. Other Information Study Quality: Fair Conclusion Normal biventricular systolic function. Mild RV dilation. No significant valvular stenosis or regurgitation. Electronically signed by : Sparkle Arce MD 04/21/2023 12:35:27
== END ==
PROVIDERS: PCP Physician Assistant; Visit Provider Internal Medicine
DX: R00.2 Palpitations (principal); R06.00 Dyspnea, unspecified; R07.9 Chest pain, unspecified; Z34.93 Encounter for supervision of normal pregnancy, unspecified, third trimester; Z87.898 Personal history of other specified conditions
CPT/HCPCS: 93306

== ENCOUNTER 2023-04-18 10:49 | Outpatient (CLI) | payer BC, OTHER, SELFPAY ==
[2023-04-18 10:57] VITALS: BMI 26.4
[2023-04-18 11:06] LABS: Microscopic, Urine URINE MICROSCOPIC (MICROSCOPIC)
[2023-04-18 11:14] VITALS: BP 119/90; PULSE 115; RESP 17; TEMP 36.6; O2SAT 98; BMI 26.4
[2023-04-18 11:15] LABS: Appearance,Urine SL CLOUDY (Clear); Blood, Urine Negative (Negative); Color,Urine YELLOW (Yellow); Glucose,Urine (UA) Negative (Negative); Ketones,Urine Negative (Negative); Leukocyte Esterase,Urine TRACE (Negative); Nitrate,Urine Negative (Negative); PH,Urine 6.5 (5.0-8.5); Protein,Urine TRACE (Negative); Specific Gravity, Urine >= 1.030 (1.005-1.030)
[2023-04-18 11:19] LABS: Bilirubin,Urine 1+ (Negative)
[2023-04-18 11:25] LABS: Amphetamine/Metha Screen,Urine Negative ng/ml (<1000)
[2023-04-18 11:26] LABS: Barbiturates Screen,Urine Negative ng/ml (<200); Benzodiazepines Screen,Urine Negative ng/ml (<200)
[2023-04-18 11:27] LABS: Cannabinoid Screen,Urine Negative ng/ml (<50); Cocaine Screen,Urine Negative ng/ml (<300)
[2023-04-18 11:28] LABS: Methadone Screen,Urine Negative ng/ml (<300)
[2023-04-18 11:29] LABS: Opiate Screen,Urine Negative ng/ml (<300); Phencyclidine Screen,Urine Negative ng/ml (<25)
[2023-04-18 11:30] LABS: Bacteria,Urine 1+ /lpf; WBC,Urine Occasional #/hpf (0-3)
[2023-04-18 12:00] VITALS: BP 123/79; PULSE 100
== END 2023-04-18 15:40 | disposition home or self-care (01) ==
LOC: OBOUT 10:51 → OB 10:51
PROVIDERS: PCP Physician Assistant; Visit Provider Obstetrics & Gynecology
DX: O26.893 Other specified pregnancy related conditions, third trimester (principal); Z3A.36 36 weeks gestation of pregnancy
CPT/HCPCS: 59025; 80305; 81001; 96365; G0463

== ENCOUNTER → 2023-04-19 16:52 | Outpatient (CLI) | payer BC, OTHER, SELFPAY | PROVIDERS: PCP Physician Assistant; Visit Provider Obstetrics & Gynecology | DX: Z34.93 Encounter for supervision of normal pregnancy, unspecified, third trimester (principal); Z3A.36 36 weeks gestation of pregnancy | CPT/HCPCS: 86403 ==

== ENCOUNTER 2023-04-20 08:57 | Outpatient (CLI) | payer BC, OTHER, SELFPAY ==
[2023-04-20 09:07] VITALS: BP 123/76; PULSE 104; RESP 18; TEMP 36.5; O2SAT 100; BMI 26.4; BMI 26.6
[2023-04-20 09:25] LABS: Microscopic, Urine URINE MICROSCOPIC (MICROSCOPIC)
[2023-04-20 09:29] LABS: Appearance,Urine CLEAR (Clear); Bilirubin,Urine Negative (Negative); Blood, Urine Negative (Negative); Color,Urine YELLOW (Yellow); Glucose,Urine (UA) Negative (Negative); Ketones,Urine Negative (Negative); Leukocyte Esterase,Urine Negative (Negative); Nitrate,Urine Negative (Negative); Protein,Urine Negative (Negative)
[2023-04-20 09:49] LABS: Bacteria,Urine Trace /lpf; Squamous Epithelial Cell,Urine Occasional #/hpf (0-5)
[2023-04-20 09:53] LABS: Amphetamine/Metha Screen,Urine Negative ng/ml (<1000)
[2023-04-20 09:54] LABS: Barbiturates Screen,Urine Negative ng/ml (<200)
[2023-04-20 09:55] LABS: Benzodiazepines Screen,Urine Negative ng/ml (<200)
[2023-04-20 09:56] LABS: Cannabinoid Screen,Urine Negative ng/ml (<50); Cocaine Screen,Urine Negative ng/ml (<300)
[2023-04-20 09:57] LABS: Methadone Screen,Urine Negative ng/ml (<300)
[2023-04-20 09:58] LABS: Phencyclidine Screen,Urine Negative ng/ml (<25)
[2023-04-20 10:08] LABS: Opiate Screen,Urine Negative ng/ml (<300)
== END 2023-04-20 10:05 | disposition home or self-care (01) ==
LOC: OBOUT 08:58 → OB 08:59
PROVIDERS: Obstetrics & Gynecology; PCP Physician Assistant; Visit Provider Obstetrics & Gynecology
DX: O36.8130 Decreased fetal movements, third trimester, not applicable or unspecified (principal); Z3A.36 36 weeks gestation of pregnancy
CPT/HCPCS: 59025; 80305; 81001; G0463

== ENCOUNTER 2023-04-26 12:16 | Outpatient (CLI) | payer BC, OTHER, SELFPAY ==
[2023-04-26 12:30] VITALS: BP 116/72; PULSE 105; RESP 20; TEMP 37.2; O2SAT 100; BMI 26.3
== END 2023-04-26 14:40 | disposition home or self-care (01) ==
LOC: OBOUT 12:17 → OB 12:18
PROVIDERS: PCP Physician Assistant; Visit Provider Obstetrics & Gynecology
DX: O26.893 Other specified pregnancy related conditions, third trimester (principal); Z3A.37 37 weeks gestation of pregnancy
CPT/HCPCS: 59025; G0463

== ENCOUNTER 2023-04-27 12:57 | Inpatient (IN) | payer BC, OTHER, SELFPAY ==
[2023-04-27 11:53] VITALS: BMI 26.3
[2023-04-27 11:54] VITALS: BP 121/66; PULSE 100; RESP 16; TEMP 36.7; O2SAT 100; BMI 26.3
[2023-04-27 12:48] LABS: Microscopic, Urine URINE MICROSCOPIC (MICROSCOPIC)
[2023-04-27 12:50] LABS: Appearance,Urine SL CLOUDY (Clear); Blood, Urine Negative (Negative); Color,Urine AMBER (Yellow); Glucose,Urine (UA) Negative (Negative); Ketones,Urine Negative (Negative); Leukocyte Esterase,Urine Negative (Negative); Nitrate,Urine Negative (Negative); Protein,Urine TRACE (Negative); Specific Gravity, Urine 1.025 (1.005-1.030)
[2023-04-27 12:55] LABS: Bilirubin,Urine Negative (Negative)
[2023-04-27 13:09] LABS: Calcium Oxalate Crystals,Urine 2+ /lpf
[2023-04-27 13:10] LABS: Yeast,Urine Occasional /lpf
[2023-04-27 13:11] LABS: Bacteria,Urine Trace /lpf; RBC,Urine Occasional #/hpf (0-3)
[2023-04-27 15:09] LABS: Basophils % 0.1 % (0.1-2.0); Eosinophils # 0.1 K/mm3 (0.0-0.4); Eosinophils % 0.6 % (0.1-12.0); Hematocrit 28.8 % (37.0-47.0); Hemoglobin 9.9 g/dL (12.2-16.2); Lymphocytes # 1.4 K/mm3 (0.7-4.5); Lymphocytes % 15.1 % (10-50); Mean Corpuscular HGB Conc 34.4 g/dL (31.8-35.4); Mean Corpuscular Volume 81.3 fl (81-99); Mean Platelet Volume 10.5 fl (7.4-10.4); Monocytes # 0.6 K/mm3 (0.1-1.0); Monocytes % 6.2 % (1.7-9.3); Neutrophils % 77.9 % (37.0-80.0); Platelet Count 126 K/mm3 (142-424); Red Blood Count 3.54 M/mm3 (4.20-5.40); Red Cell Distribution Width 15.3 % (11.5-17.5)
--- NOTE | 2023-04-27 18:40 | EXP.ANES.CKL ---
[facility] Disclaimer: The information contained in this section may have been updated after the patient was seen, as this information can be updated by other users. Medical History Abnormal ultrasound Bee sting reaction Chest pain Chest pressure Dyspnea History of tachycardia Hypotension Palpitations Vaginal bleeding affecting early Surgical History History of placement of ear tubes History of tonsillectomy and adenoidectomy Hx of laparoscopy Hx of wisdom tooth extraction Family History Other Cancer Diabetes Heart attack Hypertension Social History Smoking Status: Never smoker second hand exposure: No alcohol intake: never substance use type: denies use current occupational status: employed Travel in the last 8 weeks: None household members: significant other housing: house marital status: single number of children: 2 caffeine: Yes [facility] Anesthesia Checklist Patient Identification Patient Identification: Arm Band and Verbal (Name & ) Structural Data Admitted From: Inpatient Planned Operative Procedure/s: Labor epidural Consent for Planned Operative Procedure(s) Verified: Yes NPO Status Verified Time NPO: 15:00 Chart Verification Results Verified: CBC Additional verifications Anesthesia Reactions: No Airway Assessment Mallampati Score:: Class I C-Spine Mobility Assessed: Yes TMJ Mobility Assessed: Yes Dentition: Good Dentition Neurological Assessment Level of Consciousness: Awake Hx Seizures: No Numbness or tingling in extremities: No Anesthesia Plan Anesthesia Risk discussed: Yes Anesthesia Plan: Verified ASA Class: II Anesthesia Type: Epidural
--- NOTE | 2023-04-27 22:00 | EXP.HP ---
History of Present Illness *Admission Date: 04/27/23 *Reason for visit:: active labor *History of present illness: Elena is a 22-year-old -0-1-2 who presented to labor and delivery today at 37 weeks and 4 days gestation. She had an KAROL of 05/14/2023 based on last menstrual period and confirmed with ultrasound at 7 weeks gestation. was complicated by tachycardia which cardiology followed her for and cleared her for delivery. care was by Dr. Domingo. Patient presented with regular painful contractions. In the office yesterday she was noted to be 4/70/-2. On arrival she was noted to be 5/70/-2. At this time RN noted of a bulging bag and bloody show. The patient continued to have regular painful contractions. When I checked her at 5 PM she was 7/90/-1. OB history: G1: 01/2020. 37 weeks gestation. Male infant. 8 pounds 3 ounces. Vaginal delivery. No complications G2: 06/2021. 38 weeks gestation. Male infant. 7 pounds 10 ounces. Vaginal delivery. No complications G3: Chemical G4: Current O+, antibody negative, rubella immune, hepatitis B negative, hepatitis C negative, RPR negative, HIV negative 1 hour GTT: 129 GBS negative PFSH PFSH Disclaimer: The information contained in this section may have been updated after the patient was seen, as this information can be updated by other users. Medical History Abnormal ultrasound Bee sting reaction Chest pain Chest pressure Dyspnea History of tachycardia Hypotension Palpitations Vaginal bleeding affecting early Surgical History History of placement of ear tubes History of tonsillectomy and adenoidectomy Hx of laparoscopy Hx of wisdom tooth extraction Family History Other Cancer Diabetes Heart attack Hypertension Social History Smoking Status: Never smoker second hand exposure: No alcohol intake: never substance use type: denies use current occupational status: employed Travel in the last 8 weeks: None household members: significant other housing: house marital status: single number of children: 2 caffeine: Yes Review of Systems Review of Systems Review of systems (narrative): Review of Systems Constitutional: Denies fever, chills, and sweats Eyes: Denies vision change/ pain Respiratory: Denies cough and shortness of breath Cardiovascular: Denies chest pain and lightheadedness Gastrointestinal: Admits abdominal pain with contractions. Denies nausea, vomiting. Genitourinary: Denies dysuria and incontinence Musculoskeletal: Denies shoulder pain and back pain Neurological: Denies change in speech or headaches Meds Home Medications and Allergies Home Medications Medication Instructions Recorded Confirmed Type cholecalciferol (vitamin D3) 125 125 mcg PO DAILY 06/30/22 04/26/23 History mcg (5,000 unit) capsule mecobalamin (vitamin B12) 1,000 1,000 mcg sublingual DAILY 06/30/22 04/26/23 History mcg disintegrating tablet,sublingual vits no.126-ferrous fum tab PO 10/20/22 04/26/23 History 28 mg iron-folic acid 800 mcg tablet (Classic ) famotidine 20 mg tablet 20 mg PO BID #60 tabs 02/03/23 04/26/23 Rx magnesium oxide 800 mg PO BID 03/02/23 04/26/23 History New Prescriptions to Start Prescriptions: Allergies Allergy/AdvReac Type Severity Reaction Status Date / Time promethazine [PROMETHAZINE] Allergy Unknown Verified 04/26/23 11:31 Sulfa (Sulfonamide Allergy Unknown Verified 04/26/23 11:31 Antibiotics) [SULFA (SULFONAMIDE ANTIBIOTICS)] Exam Data for Last 24 hours Vital signs and Labs for Last 24 Hours: Temp Pulse Resp BP Pulse Ox O2 Del Method 98.0 F 100 H 16 121/66 100 Abril
--- NOTE | 2023-04-27 22:12 | EXP.HP ---
History of Present Illness *Admission Date: 04/27/23 *History of present illness: Elena is a 22-year-old -0-1-2 who presented to labor and delivery today at 37 weeks and 4 days gestation. She had an KAROL of 05/14/2023 based on last menstrual period and confirmed with ultrasound at 7 weeks gestation. was complicated by tachycardia which cardiology followed her for and cleared her for delivery. care was by Dr. Domingo. Patient presented with regular painful contractions. In the office yesterday she was noted to be 4/70/-2. On arrival she was noted to be 5/70/-2. At this time RN noted of a bulging bag and bloody show. The patient continued to have regular painful contractions. When I checked her at 5 PM she was 7//-1. OB history: G1: 01/2020. 37 weeks gestation. Male . 8 pounds 3 ounces. Vaginal delivery. No complications G2: 06/2021. 38 weeks gestation. Male . 7 pounds 10 ounces. Vaginal delivery. No complications G3: Chemical G4: Current O+, antibody negative, rubella immune, hepatitis B negative, hepatitis C negative, RPR negative, HIV negative 1 hour GTT: 129 GBS negative PFSH PFSH Disclaimer: The information contained in this section may have been updated after the patient was seen, as this information can be updated by other users. Medical History Abnormal ultrasound Bee sting reaction Chest pain Chest pressure Dyspnea History of tachycardia Hypotension Palpitations Vaginal bleeding affecting early Surgical History History of placement of ear tubes History of tonsillectomy and adenoidectomy Hx of laparoscopy Hx of wisdom tooth extraction Family History Other Cancer Diabetes Heart attack Hypertension Social History Smoking Status: Never smoker second hand exposure: No alcohol intake: never substance use type: denies use current occupational status: employed Travel in the last 8 weeks: None household members: significant other housing: house marital status: single number of children: 2 caffeine: Yes Meds Home Medications and Allergies Home Medications Medication Instructions Recorded Confirmed Type cholecalciferol (vitamin D3) 125 125 mcg PO DAILY 06/30/22 04/26/23 History mcg (5,000 unit) capsule mecobalamin (vitamin B12) 1,000 1,000 mcg sublingual DAILY 06/30/22 04/26/23 History mcg disintegrating tablet,sublingual vits no.126-ferrous fum tab PO 10/20/22 04/26/23 History 28 mg iron-folic acid 800 mcg tablet (Classic ) famotidine 20 mg tablet 20 mg PO BID #60 tabs 02/03/23 04/26/23 Rx magnesium oxide 800 mg PO BID 03/02/23 04/26/23 History New Prescriptions to Start Prescriptions: Allergies Allergy/AdvReac Type Severity Reaction Status Date / Time promethazine [PROMETHAZINE] Allergy Unknown Verified 04/26/23 11:31 Sulfa (Sulfonamide Allergy Unknown Verified 04/26/23 11:31 Antibiotics) [SULFA (SULFONAMIDE ANTIBIOTICS)] Exam Data for Last 24 hours Vital signs and Labs for Last 24 Hours: Temp Pulse Resp BP Pulse Ox O2 Del Method 98.0 F 100 H 16 121/66 100 Room Air 04/27/23 11:54 04/27/23 11:54 04/27/23 11:54 04/27/23 11:54 04/27/23 11:54 04/27/23 11:54 Laboratory Results - last 24 hr 04/27/23 11:27: Urine Color Vernell, Urine Appearance Sl cloudy, Urine pH 7.0, Ur Specific [place] 1.025, Urine Protein Trace, Urine Glucose (UA) Negative, Urine Ketones Negative, Urine Blood Negative, Urine Nitrate Negative, Urine Bilirubin Negative, Urine Urobilinogen 4.0, Ur Leukocyte Esterase Negative, Urine RBC Occasional, Urine WBC None, Calcium Oxalate Crystal 2+, Urine Bacteria Trace, Urine Yeast Occasion
--- NOTE | 2023-04-27 22:13 | P.PCN_ITS ---
Delivery Note Delivery Date:: 04/27/23 Delivery Time:: 21:00 Anesthesia Type: Epidural Was labor medically induced?: No Induction method: none Gestational age (weeks): 37 delivered prior to 39 weeks?: Yes Justification for early elective delivery:: Active Labor Infant Gender: Female at 1 minute: 8 at 5 minutes: 9 Delivery Procedure:: Preoperative diagnosis: 1. -0-1-2 at 37 completed this weeks gestation, vertex 2. Rh positive 3. GBS negative 4. Anemia 5. Gestational thrombocytopenia 6. Active Labor Postoperative diagnosis: 1. -0-1-2 at 37 completed this weeks gestation, vertex 2. Rh positive 3. GBS negative 4. Anemia 5. Gestational thrombocytopenia 6. Active Labor EBL: 250mL Specimen: 1. Cord blood 2. Arterial and venous cord gas Findings: 1. Liveborn viable female : Barbie Mendez Apgars 8/9 at 1 and 5 minutes respectively. Weight 7pounds 0oz Complications: None Procedure: Nonoperative spontaneous vaginal delivery Elena Valdez is a 22yo who presented in active labor. She presented at 5/70/-2 and continued to make cervical change on her one with regular painful contractions every 2-4 minutes. At 5pm when i checked her she was 7/90/-1 and AROM was completed revealing clear fluid. Shortly after that she received an epidural. The patient progressed to complete. The infant was noted to be in ARELI position. With effective maternal pushing there was a nonoperative spontaneous vaginal delivery at 2100. There was no nuchal cord. The anterior left shoulder delivered, followed by the posterior shoulder without dystocia. The body and lower extremities delivered without difficulty. The was bulb suctioned a nd was crying immediately following delivery. The was placed on the maternal abdomen and greater than one minute was appreciated for delayed cord clamping. The umbilical cord was doubly clamped and cut. Cord blood was collected and sent for routine testing. Cord gases were collected. The placenta delivered with cord traction and suprapubic contertraction. Pitocin was started and the placenta and cord were inspected. The placenta was noted to be intact, with a 3 vessel cord. The uterus was firm and bleeding was minimal. The perineum, vaginal mckinnon, cervix, and paraurethral area were inspected thoroughly and noted to be free of laceration. The patient tolerated the delivery well. All counts were correct by nursing. Mother and infant were doing well and bonding upon my leaving the delivery room. Placental Delivery Description: Spontaneous
[2023-04-28 02:18] LABS: Amphetamine/Metha Screen,Urine Negative ng/ml (<1000)
[2023-04-28 02:19] LABS: Barbiturates Screen,Urine Negative ng/ml (<200); Benzodiazepines Screen,Urine Negative ng/ml (<200)
[2023-04-28 02:20] LABS: Cocaine Screen,Urine Negative ng/ml (<300); Methadone Screen,Urine Negative ng/ml (<300)
[2023-04-28 02:21] LABS: Cannabinoid Screen,Urine Negative ng/ml (<50)
[2023-04-28 02:22] LABS: Phencyclidine Screen,Urine Negative ng/ml (<25)
[2023-04-28 02:23] LABS: Opiate Screen,Urine Negative ng/ml (<300)
[2023-04-28 07:42] LABS: Basophils % 0.1 % (0.1-2.0); Eosinophils # 0.1 K/mm3 (0.0-0.4); Eosinophils % 0.7 % (0.1-12.0); Hematocrit 26.6 % (37.0-47.0); Hemoglobin 9.1 g/dL (12.2-16.2); Lymphocytes # 1.7 K/mm3 (0.7-4.5); Lymphocytes % 15.2 % (10-50); Mean Corpuscular HGB Conc 34.3 g/dL (31.8-35.4); Mean Corpuscular Hemoglobin 28.2 pg (27.0-31.2); Mean Corpuscular Volume 82.1 fl (81-99); Mean Platelet Volume 10.4 fl (7.4-10.4); Monocytes # 0.9 K/mm3 (0.1-1.0); Monocytes % 8.1 % (1.7-9.3); Neutrophils # 8.4 K/mm3 (1.8-7.8); Neutrophils % 75.9 % (37.0-80.0); Platelet Count 125 K/mm3 (142-424); Red Blood Count 3.24 M/mm3 (4.20-5.40); Red Cell Distribution Width 15.2 % (11.5-17.5)
--- NOTE | 2023-04-28 09:11 | P.CONPHA_ITS ---
Pharmacy Intervention Comments: MEDICATION RECONCILIATION COMPLETED ON PATIENT USING EXTERNAL FILL HISTORY FROM PHARMACY AND LIST FROM FOURTH MATE OFFICE. -JOSELIN HATCHD
--- NOTE | 2023-04-28 09:11 | HMH.PHAINT1 ---
Pharmacy Intervention Comments: MEDICATION RECONCILIATION COMPLETED ON PATIENT USING EXTERNAL FILL HISTORY FROM PHARMACY AND LIST FROM MEDICAL CODING SPECIALIST OFFICE. -JOSELIN HATCHD
--- NOTE | 2023-04-28 12:38 | EXP.DC.SUM ---
General Admission date:: 04/27/23 Discharge date: 04/28/23 HPI HPI HPI: PPD # 1 s/p Doing well . Pain controlled. Breast feeding. Appropriate lochia. Voiding without difficulty and passing flatus. Tolerating regular diet. Denies fever/chills, chest pain and shortness of breath. No headaches, dizziness/lightheadedness. Ambulating well ad sandra. Hospital Course Hospital Course Hospital Course: Elena is a 22-year-old -0-1-2 admitted to [facility] L&D at 37 weeks and 4 days gestation for active labor. She had an KAROL of 05/14/2023 based on last menstrual period and confirmed with ultrasound at 7 weeks gestation. was complicated by tachycardia which cardiology followed her for and cleared her for delivery. Patient presented with regular painful contractions. In the office yesterday she was noted to be 4/70/-2. On arrival she was noted to be 5/70/-2. At this time RN noted of a bulging bag and bloody show. The patient continued to have regular painful contractions. Repeat cervical exam by physician at 1700 was 7/90/-1. GBS negative She had a normal spontaneous vaginal delivery on 04/27/23 at 2100. She delivered a live female baby, Barbie Mendez, weighing 7 lb 0 oz. APGARs 8 (1 min), 9 (5 min). EBL 250 mL. She did well . Pain controlled. Breast feeding. Appropriate lochia. Voiding without difficulty and passing flatus. Tolerating regular diet. Denies fever/chills, chest pain and shortness of breath. No headaches, dizziness/lightheadedness. Ambulating well ad sandra. Vital signs stable, afebrile. Heart regular rate and rhythm. Lungs clear to auscultation. Abdomen soft, nontender. No lower extremity edema. She received Venofer 200 mg for anemia of . She was discharged home on PPD #1 and instructed to follow-up in the office in 2 weeks or sooner if needed. Exam Data for Last 24 hours Vital signs and Labs for Last 24 Hours: Temp Pulse Resp BP Pulse Ox O2 Del Method 98.0 F 100 H 16 121/66 100 Room Air 04/27/23 11:54 04/27/23 11:54 04/27/23 11:54 04/27/23 11:54 04/27/23 11:54 04/27/23 11:54 Laboratory Results - last 24 hr 04/27/23 11:27: Urine Color Vernell, Urine Appearance Sl cloudy, Urine pH 7.0, Ur Specific [place] 1.025, Urine Protein Trace, Urine Glucose (UA) Negative, Urine Ketones Negative, Urine Blood Negative, Urine Nitrate Negative, Urine Bilirubin Negative, Urine Urobilinogen 4.0, Ur Leukocyte Esterase Negative, Urine RBC Occasional, Urine WBC None, Calcium Oxalate Crystal 2+, Urine Bacteria Trace, Urine Yeast Occasional, Urine Opiates Screen Negative, Urine Methadone Screen Negative, Ur Barbituates Screen Negative, Ur Phencyclidine Scrn Negative, Ur Amphetamines Screen Negative, U Benzodiazepines Scrn Negative, Urine Cocaine Screen Negative, U Marijuana (THC) Screen Negative 04/27/23 13:39: WBC 9.0, RBC 3.54 L, Hgb 9.9 L, Hct 28.8 L, MCV 81.3, MCH 28.0, MCHC 34.4, RDW 15.3, Plt Count 126 L, MPV 10.5 H, Neut % (Auto) 77.9, Lymph % (Auto) 15.1, [place] % (Auto) 6.2, Eos % (Auto) 0.6, Baso % (Auto) 0.1, Neut # (Auto) 7.0, Lymph # (Auto) 1.4, [place] # (Auto) 0.6, Eos # (Auto) 0.1, Baso # (Auto) 0.0, Blood Type O Positive, Antibody Screen Negative 04/27/23 21:15: Cord ABG pH 7.40 04/28/23 06:36: WBC 11.0 H, RBC 3.24 L, Hgb 9.1 L, Hct 26.6 L, MCV 82.1, MCH 28.2, MCHC 34.3, RDW 15.2, Plt Count 125 L, MPV 10.4, Neut % (Auto) 75.9, Lymph % (Auto) 15.2, [place] % (Auto) 8.1, Eos % (Auto) 0.7, Baso % (Auto) 0.1, Neut # (Auto) 8.4 H, Lymph # (Auto) 1.7, [place] # (Auto) 0.9, Eos # (Auto) 0.1, Baso # (Auto) 0.0 I & O for Last 24 hours: Intake & Output 04/25/23 04/26/23 04/27/23 04/28/23 23:59 23:59 23:59 23:59 Output Total 400 / 400 Balance -400 / -400 Weight 163 lb Constitutional Constitutional: no acute distress and cooperative *Routine HEENT Exam Head: Present normocephalic and atraumatic Eye: Absent conjunctivae pink ENT: Present mucous membranes moist *Routine Neck Exam Neck: Present
== END 2023-04-28 17:23 | disposition home or self-care (01) | DRG 807 ==
LOC: OBOUT 12:58 → OB 12:58
PROVIDERS: Admitting Provider Obstetrics & Gynecology; PCP Physician Assistant; Visit Provider Obstetrics & Gynecology
DX: O99.12 Other diseases of the blood and blood-forming organs and certain disorders involving the immune mechanism complicating childbirth (principal); Z37.0 Single live birth; Z3A.37 37 weeks gestation of pregnancy; O99.02 Anemia complicating childbirth
CPT/HCPCS: 59409; 36415; 59025; 80305; 81001; 82800; 85025; 86850; 94761; G0283; J1756; J2405

== ENCOUNTER 2024-01-04 09:03 | Outpatient (CLI) | payer BC, OTHER, SELFPAY ==
--- NOTE | 2024-01-04 09:03 | US_ITS ---
PROCEDURE: US TRANSVAGINAL CLINICAL INDICATION: Pelvic Pain COMPARISON: CT CT ABDOMEN PELVIS W CON from 09/09/2020 US US TRANSVAGINAL from 09/09/2020 FINDINGS: Transvaginal sonographic images of the pelvis were obtained. UTERUS: 7.3cm x 4.9 cmx 3.0cm anteverted with a combined endometrial thickness of 3.3mm. There are several small hyperechoic areas within the anterior myometrium. LEFT OVARY: 3jfw3kmp2.6cm with a volume of 12.5ml. There are multiple follicles consistent with a polycystic ovary. RIGHT OVARY: 4cmx 2hwp7jd with a volume of 11.3ml. There are multiple follicles consistent with a polycystic ovary. Both ovaries are seen and appear polycystic. Doppler flow to both ovaries are seen. There is no fluid in the cul-de-sac. IMPRESSION: 1. Anteverted uterus normal in shape and size. The endometrium is thin. 2. Within the anterior myometrium there are hyperechoic areas of questionable significance. 3. Both ovaries are seen and appear polycystic. 4. No fluid in the cul-de-sac. Dictated by: Mario Bhagat MD 01/04/2024 15:12 Mario Bhagat MD in OV 01/04/2024 15:12
== END 2024-01-04 23:59 | disposition home or self-care (01) ==
LOC: RAD 09:03
PROVIDERS: PCP Physician Assistant; Visit Provider Obstetrics & Gynecology
DX: R10.2 Pelvic and perineal pain (principal)
CPT/HCPCS: 76830

== ENCOUNTER 2024-02-21 13:21 | Outpatient (CLI) | payer BC, OTHER, SELFPAY ==
--- NOTE | 2024-02-21 13:21 | US_ITS ---
PROCEDURE: US TRANSVAGINAL CLINICAL INDICATION: f/u on hyperechoic areas in anterior myometrium COMPARISON: US US TRANSVAGINAL from 01/04/2024 FINDINGS: Transvaginal sonographic images of the pelvis were obtained. UTERUS: 7.2cm x 4.2cmx 3.1cm anteverted with a combined endometrial thickness of 3mm. There continues to be small hyperechoic areas within the myometrium. LEFT OVARY: 3.2cmx1.9 cmx2.0cm with a volume of 6.2ml. There are multiple small peripheral follicles within the left ovary giving it a polycystic appearance. RIGHT OVARY: 3.6 cmx 2.5cmx2.5cm with a volume of 11.5ml. There are multiple small peripheral follicles in the right ovary giving it a polycystic appearance. Both ovaries are seen and appear polycystic. Doppler flow to both ovaries are seen. There is no fluid in the cul-de-sac. IMPRESSION: 1. Anteverted uterus normal in shape and size. The endometrium is thin measuring 3 mm. 2. There continue to be some hyperechoic calcified areas within the myometrium. 3. Both ovaries are seen and appear polycystic. 4. No fluid in the cul-de-sac. Dictated by: Mario Bhagat MD 02/21/2024 16:38 Mario Bhagat MD in OV 02/21/2024 16:38
== END 2024-02-21 23:59 | disposition home or self-care (01) ==
LOC: RAD 13:21
PROVIDERS: PCP Physician Assistant; Visit Provider Obstetrics & Gynecology
DX: R10.2 Pelvic and perineal pain (principal); E28.2 Polycystic ovarian syndrome; Z87.42 Personal history of other diseases of the female genital tract
CPT/HCPCS: 76830

== ENCOUNTER 2024-04-17 14:53 | Emergency (ER) | payer BC, OTHER, SELFPAY ==
[2024-04-17 15:20] VITALS: BP 106/65; PULSE 76; RESP 18; TEMP 36.8; O2SAT 100; BMI 23.6
[2024-04-17 15:27] VITALS: BP 111/77
--- NOTE | 2024-04-17 15:27 | ED_ITS ---
Discharge Plan Disposition Patient Disposition: Home, Self-Care Condition: Good Prescriptions Prescriptions: New meclizine 25 mg tablet 25 mg PO TID PRN (Reason: dizziness) Qty: 12 0RF fluticasone propionate [Flonase Allergy Relief] 50 mcg/actuation spray ,suspension 2 spray intranasal DAILY Qty: 16 0RF Rx Instructions: administer into each nostril daily No Action sertraline 50 mg tablet 50 mg PO DAILY norethindrone (contraceptive) 0.35 mg tablet 0.35 mg PO DAILY Qty: 84 0RF Referrals Follow up/Referrals: Mellisa Costello PA [Primary Care Provider] - See instructions Activity Restrictions/Add. Instructions Additional Instructions/Restrictions: Slow steady movements Take medication as prescribed Follow up with your Family Doctor if symptoms do not improve or persist Medication may cause drowsiness so no driving or operating heavy machinery Clinical Impressions Clinical Impression: Vertigo Stand Alone Forms Stand Alone Forms: Work/School Release Instructions Patient Instructions: DI for Vertigo, Meclizine Print Language Print Language: Upper Sorbian Discharge ED Provider: Amparo Carl [facility] [place] General Stated complaint: dizziness Mode of Arrival: Ambulatory Source of Information: Patient Limitations: No Limitations Time Seen by Provider: 04/17/24 15:27 Description of Symptoms (Recalled from Triage Doc. by RN): PATIENT C/O DIZZINESS WITH MOVEMENT THAT STARTED YESTERDAY HEENT Symptoms (Recalled from RN notes): Yes Resp Symptoms (Recalled from RN notes): No Skin Symptoms (Recalled from RN notes): No MS Symptoms (Recalled from RN notes): No Functional Status (Recalled from RN notes): WNL History of Present Illness Provider Complaint: Patient states that she started having motion sickness like feeling yesterday and feels dizzy with movement States that she is breast feeding and was going to try some Dramamine but was afraid too States that she use to have ear problems but hasnt in a while States today she was still having dizziness at times with movement so she came in to get checked and see what she can take Related Data Home Medications ?Medication ?Instructions ?Recorded ?Confirmed sertraline 50 mg tablet 50 mg PO DAILY 12/31/23 04/17/24 Previous Rx's ?Medication ?Instructions ?Recorded norethindrone (contraceptive) 0.35 0.35 mg PO DAILY #84 tabs 02/22/24 mg tablet fluticasone propionate 50 2 spray intranasal DAILY #16 grams 04/17/24 mcg/actuation nasal spray,suspension (Flonase Allergy Relief) meclizine 25 mg tablet 25 mg PO TID PRN dizziness #12 tabs 04/17/24 Allergies Allergy/AdvReac Type Severity Reaction Status Date / Time promethazine (PROMETHAZINE) Allergy Unknown Verified 03/14/24 13:21 Sulfa (Sulfonamide Allergy Unknown Verified 03/14/24 13:21 Antibiotics) (SULFA (SULFONAMIDE ANTIBIOTICS)) Worker's Comp Is this a Worker's Comp case?: No [facility] Disclaimer: The information contained in this section may have been updated after the patient was seen, as this information can be updated by other users. Medical History (Updated 04/17/24 @ 15:31 by Amparo Carl APRN) Chronic pelvic pain in female Acute pelvic pain, female Chest pain History of tachycardia Hypotension Palpitations Chest pressure Dyspnea Surgical History Hx of wisdom tooth extraction History of tonsillectomy and adenoidectomy Hx of laparoscopy History of placement of ear tubes Family History Other Cancer Diabetes Heart attack Hypertension Social History Smoking Status: Never smoker second hand exposure: No alcohol intake: never substance use type: denies use current occupational status: employed Travel in the last 8 weeks: None household members: significant other housing: house marital status: single number of children: 2 caffeine: Yes ROS Obtained: Yes All systems reviewed & no additional complaints except as documented and Yes Systems reviewed as appropriate & no additional complaints except as documented Constitutional Constitutional: Reports system reviewed and no additional complaints, except as documented and Reports as per HPI ENT Ears, Nose, Mouth, and Throat: Reports system reviewed and no additional complaints, except as documented, Reports as per HPI, Reports dizziness and Reports otalgia (fullness) Cardiovascular Cardiovascular: Reports system reviewed and no additional complaints, except as documented and Reports as per HPI Respiratory Respiratory: Reports system reviewed and no additional complaints, except as documented and Reports as per HPI Gastrointestinal Gastrointestingal: Reports system reviewed and no additional complaints, except as documented and as per HPI Genitourinary Female Genitourinary: Reports system reviewed and no additional complaints, except as documented and Reports as per HPI Neurologic Neurologic: Reports dizziness Physical Exam General General appearance: alert and in no apparent distress ENT ENT exam: Present mucous membranes moist Expanded ENT Exam TM/Canal exam: Bilateral TM: bulging (mild redness in right) Nose exam: Absent sinus tenderness Throat exam: Present normal inspection Respiratory Respiratory exam: Present normal lung sounds bilaterally; Absent respiratory distress or wheezes Cardiovascular Cardiovascular exam: Present regular rate, normal rhythm and normal heart sounds Neurological Exam Neurological exam: Present alert, oriented X3 and normal gait Medical Decision Making Medical Records Screening: Per USPSTF and CDC recommendations, given the prevalence of disease in our region, it is our hospital?s policy to screen for HIV and viral Hepatitis for all patients aged 18 and over and those with ongoing risk factors. Erasmo Inquiry Pt receiving controlled substance: No Erasmo was queried for this patient: No Vital Signs: 04/17/24 15:20 Temperature 98.3 F Temperature Source Oral Pulse Rate [Left Brachial] 76 Respiratory Rate 18 Blood Pressure [Left Arm] 106/65 L Blood Pressure Mean [Left Arm] 78 Blood Pressure Source [Left Arm] Automatic Cuff Blood Pressure Position [Left Arm] Sitting 02 Sat by Pulse Oximetry 100 Oxygen Delivery Method Room Air Medical Decision Narrative: Movement elicits feeling of motion sickness and feeling like the room is spinning around her, Patient is , discussed meclizine with pharmacy and ok for short term use will prescribe meclizine and flonase and have patient follow up with PCP if no improvement
[2024-04-17 15:45] VITALS: BP 111/77; PULSE 76; RESP 18; TEMP 36.8; O2SAT 100
== END 2024-04-17 15:51 | disposition home or self-care (01) ==
PROVIDERS: Emergency Provider Nurse Practitioner; PCP Physician Assistant
DX: R42 Dizziness and giddiness (principal)
CPT/HCPCS: 99212; G0381

== ENCOUNTER 2024-05-24 12:30 | Outpatient (CLI) | payer BC, OTHER, SELFPAY ==
[2024-05-24 12:53] VITALS: BMI 22.6
== END 2024-05-24 23:59 | disposition home or self-care (01) ==
LOC: PREOP 12:37
PROVIDERS: PCP Physician Assistant; Visit Provider Obstetrics & Gynecology
DX: R69 Illness, unspecified (principal)

== ENCOUNTER 2024-05-25 10:11 | Observation (INO) | payer BC, OTHER, SELFPAY ==
[2024-05-24 10:24] VITALS: BMI 22.4
[2024-05-24 13:00] LABS: Basophils % 0.2 % (0.1-2.0); Eosinophils # 0.1 K/mm3 (0.0-0.4); Eosinophils % 1.4 % (0.1-12.0); Hematocrit 37.7 % (37.0-47.0); Hemoglobin 12.7 g/dL (12.2-16.2); Lymphocytes # 1.9 K/mm3 (0.7-4.5); Lymphocytes % 33.3 % (10-50); Mean Corpuscular HGB Conc 33.7 g/dL (31.8-35.4); Mean Corpuscular Hemoglobin 30.5 pg (27.0-31.2); Mean Corpuscular Volume 90.4 fl (81-99); Mean Platelet Volume 10.6 fl (7.4-10.4); Monocytes # 0.6 K/mm3 (0.1-1.0); Monocytes % 10.2 % (1.7-9.3); Neutrophils # 3.2 K/mm3 (1.8-7.8); Neutrophils % 54.7 % (37.0-80.0); Platelet Count 185 K/mm3 (142-424); Red Blood Count 4.17 M/mm3 (4.20-5.40); Red Cell Distribution Width 12.9 % (11.5-17.5); White Blood Count 5.8 K/mm3 (4.8-10.8)
[2024-05-24 13:06] LABS: Chloride 104 mmol/L (98-107); Sodium 141 mmol/L (136-145)
[2024-05-24 13:07] LABS: Potassium 4.3 mmoL/L (3.5-5.1)
[2024-05-24 13:09] LABS: Blood Urea Nitrogen 19 mg/dl (7-17); Creatinine Clearance Estimated 122 mL/min (50-200); Estimated Glomerular Filt Rate 102 ml/min (>60); GFR (African American) 123 ML/MIN (>60)
[2024-05-24 13:10] LABS: Anion Gap 14.3 mEq/L (5-15); Calcium 9.7 mg/dl (8.4-10.2); Carbon Dioxide 27 mmol/L (22.0-30.0); Glucose 83 mg/dl (74-100)
[2024-05-24 13:35] LABS: HCG Qualitative, Serum Negative (Negative)
[2024-05-25] VITALS (22 sets, daily range): BP systolic 98–135; BP diastolic 49–83; PULSE 68–115; RESP 12–18; TEMP 35.8–38; O2SAT 97–100
--- NOTE | 2024-05-25 07:30 | P.PNANES_ITS ---
[facility] Disclaimer: The information contained in this section may have been updated after the patient was seen, as this information can be updated by other users. Medical History Menorrhagia Pre-op evaluation Chronic pelvic pain in female Acute pelvic pain, female Chest pain History of tachycardia Hypotension Palpitations Chest pressure Dyspnea Surgical History Hx of wisdom tooth extraction History of tonsillectomy and adenoidectomy Hx of laparoscopy History of placement of ear tubes Family History Other Cancer Diabetes Heart attack Hypertension Social History Smoking Status: Never smoker second hand exposure: No alcohol intake: never substance use type: denies use current occupational status: employed Travel in the last 8 weeks: None household members: significant other housing: house marital status: single number of children: 2 caffeine: Yes Have you lived/traveled outside [place] in past 30 days?: No Contact w/someone who lives/traveled outside US past 30 days?: No Exposure to someone with infectious disease in past 14 days?: No Do you have a fever (greater than 100.4 F or 38 C)?: No Have you tested positive for COVID-19: Yes Exposed to someone with COVID-19 in past 14 days?: No Do you have a sore throat?: No Do you have a cough?: No Do you have any weakness?: No Do you have any diarrhea?: No Are you experiencing any unusual bleeding?: No Do you have any muscle aches/pain?: No Do you have any abdominal pain?: No Are you experiencing loss of taste or smell?: No [facility] Anesthesia Checklist Patient Identification Patient Identification: Arm Band and Verbal (Name & ) Structural Data Admitted From: Home Planned Operative Procedure/s: [facility] Consent for Planned Operative Procedure(s) Verified: Yes Verified Documents: Surgical Consent and History and Physical NPO Status Verified Time NPO: 00:00 Additional verifications Anesthesia Reactions: No Hx Blood Transfusions: No Blood Transfusion Reaction: No Airway Assessment Mallampati Score:: Class II C-Spine Mobility Assessed: Yes TMJ Mobility Assessed: Yes Dentition: Good Dentition Neurological Assessment Level of Consciousness: Awake Hx Seizures: No Numbness or tingling in extremities: No Anesthesia Plan Anesthesia Risk discussed: Yes Anesthesia Plan: Verified ASA Class: II Anesthesia Type: General
[2024-05-25] MEDS: GABAPENTIN 300MG CAPSULE 600 MG (07:31)
[2024-05-25] MEDS: CELECOXIB 100MG CAPSULE 400 MG PO (07:31)
[2024-05-25] MEDS: LACTATED RINGERS 1000ML 1,000 ML 25 ML IV (07:32)
[2024-05-25] MEDS: ACETAMINOPHEN 500MG TAB 1000 MG PO ×3 (07:32→21:00)
--- NOTE | 2024-05-25 07:38 | P.HP_ITS ---
History of Present Illness *Admission Date: 05/25/24 *Reason for visit:: Chronic pelvic pain, Dyspareunia, Abnormal uterine bleeding *History of present illness: Ms Elena Mascorro is a 23 yo P3013 who presents to [facility] for scheduled surgery. She complains of chronic pelvic pain. She admits she never started norethindrone 0.35 mg. She does not like the way hormones make her feel. She has not had a period since before delivery. She has history of endometriosis and PCOS. She reports pelvic pain is constant and intercourse is very painful. She admits to spotting after intercourse. P3013. History of x 3. She has had two diagnostic laparoscopies in the past for endometriosis. She is complete with childbearing and desires definitive surgical intervention with hysterectomy. Pelvic ultrasound 01/04/24 demonstrated 1. Anteverted uterus normal in shape and size. The endometrium is thin. 2. Within the anterior myometrium there are hyperechoic areas of questionable significance. 3. Both ovaries are seen and appear polycystic. 4. No fluid in the cul-de-sac. Repeat pelvic ultrasound 02/21/24 demonstrated 1. Anteverted uterus normal in shape and size. The endometrium is thin measuring 3 mm. 2. There continue to be some hyperechoic calcified areas within the myometrium. 3. Both ovaries are seen and appear polycystic. 4. No fluid in the cul-de-sac. [facility] Disclaimer: The information contained in this section may have been updated after the patient was seen, as this information can be updated by other users. Medical History Menorrhagia Pre-op evaluation Chronic pelvic pain in female Acute pelvic pain, female Chest pain History of tachycardia Hypotension Palpitations Chest pressure Dyspnea Surgical History Hx of wisdom tooth extraction History of tonsillectomy and adenoidectomy Hx of laparoscopy History of placement of ear tubes Family History Other Cancer Diabetes Heart attack Hypertension Social History Smoking Status: Never smoker second hand exposure: No alcohol intake: never substance use type: denies use current occupational status: employed Travel in the last 8 weeks: None household members: significant other housing: house marital status: single number of children: 2 caffeine: Yes Have you lived/traveled outside US in past 30 days?: No Contact w/someone who lives/traveled outside US past 30 days?: No Exposure to someone with infectious disease in past 14 days?: No Do you have a fever (greater than 100.4 F or 38 C)?: No Have you tested positive for COVID-19: Yes Exposed to someone with COVID-19 in past 14 days?: No Do you have a sore throat?: No Do you have a cough?: No Do you have any weakness?: No Do you have any diarrhea?: No Are you experiencing any unusual bleeding?: No Do you have any muscle aches/pain?: No Do you have any abdominal pain?: No Are you experiencing loss of taste or smell?: No Other Medical History Have you received the Flu Vaccine for this season: No Have you received the Pneumonia Vaccine: No Review of Systems Review of Systems Review of systems:: pertinent systems reviewed and negative unless documented below *Gastrointestinal Gastrointestinal: Reports abdominal pain *Genitourinary Comments: + pelvic pain, dyspareunia, spotting after intercourse, leakage of urine with laugh, cough, sneeze and urinary urgency Meds Home Medications and Allergies Home Medications ?Medication ?Instructions ?Recorded ?Confirmed ?Type sertraline 50 mg tablet (Zoloft) 50 mg PO DAILY 12/31/23 05/24/24 History fluticasone propionate 50 2 spray intranasal DAILY #16 grams 04/17/24 05/24/24 Rx mcg/actuation nasal spray,suspension (Flonase Allergy Relief) New Prescriptions to Start Prescriptions: Allergies Allergy/AdvReac Type Severity Reaction Status Date / Time promethazine (PROMETHAZINE) Allergy Unknown Swelling Verified 05/25/24 07:08 of Lip/Tongue/Throat Sulfa (Sulfonamide Allergy Unknown Rash Verified 05/25/24 07:08 Antibiotics) (SULFA (SULFONAMIDE ANTIBIOTICS)) Exam Data for Last 24 hours Vital signs and Labs for Last 24 Hours: Temp Pulse Resp BP Pulse Ox O2 Del Method 97.4 F L 78 18 128/68 99 Room Air 05/25/24 07:13 05/25/24 07:13 05/25/24 07:13 05/25/24 07:13 05/25/24 07:13 05/25/24 07:13 Laboratory Results - last 24 hr 05/24/24 12:42: WBC 5.8, RBC 4.17 L, Hgb 12.7, Hct 37.7, MCV 90.4, MCH 30.5, MCHC 33.7, RDW 12.9, Plt Count 185, MPV 10.6 H, Neut % (Auto) 54.7, Lymph % (Auto) 33.3, Jackson % (Auto) 10.2 H, Eos % (Auto) 1.4, Baso % (Auto) 0.2, Neut # (Auto) 3.2, Lymph # (Auto) 1.9, Jackson # (Auto) 0.6, Eos # (Auto) 0.1, Baso # (Auto) 0.0, Sodium 141, Potassium 4.3, Chloride 104, Carbon Dioxide 27, Anion Gap 14.3, BUN 19 H, Creatinine 0.70, Estimated Creat Clear 122, Estimated GFR 102, Est GFR ( Amer) 123, Glucose 83, Calcium 9.7, Serum HCG, Qual Negative I & O for Last 24 hours: Intake & Output 05/22/24 05/23/24 05/24/24 05/25/24 23:59 23:59 23:59 23:59 Weight 139 lb Constitutional Constitutional: no acute distress and cooperative *Routine HEENT Exam Head: Present normocephalic and atraumatic Eye: Absent conjunctivae pink ENT: Present mucous membranes moist *Routine Neck Exam Neck: Present full ROM *Routine Respiratory Exam Respiratory: Present CTA bilaterally and normal respiratory effort *Routine Cardiovascular Exam Cardiovascular: Present RRR *Routine Abdominal Exam Abdominal: Present soft and tenderness (suprapubic tenderness to palpation); Absent distended *Routine Rectal Exam Rectal:: deferred *Routine Genitalia Exam Genitalia:: normal female *Routine Extremities Exam Extremities: Present full ROM; Absent edema or calf tenderness Assessment and Plan *Assessment and plan (1) Chronic pelvic pain in female: Status: Acute Category: Medical Code(s): R10.2 - Pelvic and perineal pain; G89.29 - Other chronic pain (2) Dyspareunia: Status: Acute Category: Medical (3) PCOS (polycystic ovarian syndrome): Status: Acute Category: Medical Code(s): E28.2 - Polycystic ovarian syndrome (4) History of endometriosis: Status: Acute Category: Medical Code(s): Z87.42 - Personal history of other diseases of the female genital tract (5) MATTIE (stress urinary incontinence, female): Status: Acute Category: Medical Code(s): N39.3 - Stress incontinence (female) (male) Plan Admit to [facility] for scheduled surgery Reviewed TLH, BS, possible ADELINE,BS, possible cystoscopy in detail. Discussed risks, benefits, alternatives, expectations and possible complications of surgery. Risks include but are not limited to bleeding; infection; damage to adjacent structures (bowel, bladder, nerves, blood vessels, etc) (possibly requiring further intervention and/or longer hospital stay); VTE; risks with anesthesia; and risk of . All questions addressed and answered. Patient voiced understanding of risks and possible complications. Patient desires to proceed with surgery. Consent form signed. Proceed with surgery as scheduled
[2024-05-25] MEDS: CEFAZOLIN SODIUM 2 GM in 0.9 % SODIUM CHLORIDE 100 ML IV (07:40)
[2024-05-25] MEDS: BUPIVACAINE 0.5% W/EPI 1:200,000 30ML VIAL 30 ML IJ (07:56)
[2024-05-25] MEDS: METRONIDAZ/SOD CHL 500 MG/100 ML PIGGYBACK 100 MG IV (08:04)
--- NOTE | 2024-05-25 09:41 | EXP.ANES.I ---
[facility] Anesthesia Record Part I Anesthesia Record I Intake, IV Amount: 1,200 Hydration: Adequate Estimated blood loss (mL): 150 Urine output (mL): 0 Blood Pressure: 128/72 SaO2: 100 Pulse Rate: 100 Airway Patency: Patent Respiratory Rate: 16 Temperature: 97.6 F Patient is:: Awake Stable to PACU at:: 09:37
--- NOTE | 2024-05-25 09:59 | P.OP_ITS ---
Date of procedure: 05/25/24 Pre-op Diagnosis:: 1. Chronic pelvic pain 2. Dyspareunia 3. History of endometriosis 4. PCOS 5. Abnormal uterine bleeding Post-op Diagnosis:: 1. Chronic pelvic pain 2. Dyspareunia 3. History of endometriosis 4. PCOS 5. Abnormal uterine bleeding Procedure performed:: Total Laparoscopic Hysterectomy, bilateral salpingectomy Surgeon:: Kori Domingo DO Gas Generator Operator(s):: Melissa Pickett DO WAREHOUSE INCENTIVE SELECTOR:: Malu Lozada Anesthesia: GETA Estimated blood loss (mL): 150 Clinical Note:: Ms Elena Mascorro is a 23 yo P3013 who presents to [facility] for scheduled surgery. She complains of chronic pelvic pain. She admits she never started norethindrone 0.35 mg. She does not like the way hormones make her feel. She has not had a period since before delivery. She has history of endometriosis and PCOS. She reports pelvic pain is constant and intercourse is very painful. She admits to spotting after intercourse. P3013. History of x 3. She has had two diagnostic laparoscopies in the past for endometriosis. She is complete with childbearing and desires definitive surgical intervention with hysterectomy. Pelvic ultrasound 01/04/24 demonstrated 1. Anteverted uterus normal in shape and size. The endometrium is thin. 2. Within the anterior myometrium there are hyperechoic areas of questionable significance. 3. Both ovaries are seen and appear polycystic. 4. No fluid in the cul-de-sac. Repeat pelvic ultrasound 02/21/24 demonstrated 1. Anteverted uterus normal in shape and size. The endometrium is thin measuring 3 mm. 2. There continue to be some hyperechoic calcified areas within the myometrium. 3. Both ovaries are seen and appear polycystic. 4. No fluid in the cul-de-sac. Operative findings:: 1. On bimanual exam, uterus normal size and shape, midposition. Cervix appeared grossly normal. No adnexal masses palpated 2. On laparoscopic exam, liver, gallbladder, stomach and bowel appeared grossly normal. Uterus, bilateral fallopian tubes and bilateral ovaries appeared grossly normal. Marcelo-Masters peritoneal defect noted lateral to right uterosacral ligament. Operative note:: Discussed risks, benefits, alternatives, expectations and possible complications of surgery. All questions addressed and answered. Patient wished to proceed with surgery. Patient was wheeled back to the operating room and placed under general anesthesia without difficulty. She was placed in the dorsal lithotomy position. She was prepped and draped in normal sterile fashion. Beginning at the vagina, a lopez catheter was inserted into the bladder and draining clear urine prior to the start of the procedure. Weighted Auvuard was placed in the vaginal vault. Anterior lip of the cervix was grasped with single tooth tenaculum. Uterus sounded to 8. Alvarado dilators were used to dilate the cervix. [employer] uterine manipulator was inserted into the cervix with the size 3 colpotomy cup covering the cervix. Single tooth tenaculum was removed prior to complete placement of colpotomy cup over cervix. Uterine balloon was filled with 10cc of air. Vaginal balloon was filled with 60 cc of air. Weighted Auvard was removed. Attention was then turned to the abdomen. Skin just below the umbilicus was injected with 0.5% marcaine. A 1.5 cm infraumbilical incision was made. Veress needle was tested and inserted intrabdominally. Opening pressure was 3 mm Hg. The peritoneal cavity was insulflated to 15 mm Hg. Laparoscope within 11 mm blunt trocar was inserted intrabdominally under direct visualization. Obturator and scope were removed. Laparoscope was inserted into the trocar sleeve. Abdomen and pelvis was viewed in its entirety. Examination of the peritoneal cavity revealed no signs of injury from entry and normal anatomic structures. See findings above. Pictures were taken. Bowel was swept cephalad with blunt probe. LLQ port site was transilluminated and injected with 0.5% marcaine. A 1.5 cm incision was made and 11 mm trocar was inserted intraabdominally under direct laparoscopic visualization. Obturator was removed and sleeve was left in place. Same procedure was performed in RLQ. Left fallopian tube was grasped at fimbriated end. Ligasure Hook was used to clamp, cauterize and transect the left mesosalpinx, mesovarium and ovarian ligament. Transection was carried through the round ligament and then the Broad ligament. Same procedure was carried out on the contralateral side. Both ovaries left in situ. Care was taken to slowly separate the bladder off of the lower uterine segment with sharp and blunt dissection. Once the bladder was appropriately dissected off of the lower uterine segment. Bilateral uterine arteries were clamped, cauterized and cut using the Ligasure. Transection was carried through the cardinal ligament bilaterally. Hemostasis was noted. At the level of the colpotomy cup, the vaginal vault was incised circumferentially with the Ligasure monopolar hook. The uterus and cervix was pulled into the vagina and left in the vagina to hold pneumoperitoneum. The vaginal vault was closed with the Endostitch V-Lock barbed stitch. Pelvis was irrigated. Intraabdominal pressure was decreased to 5 mm Hg. Hemostasis was noted. Bilateral ureters were identified in the pelvis and peristalsis was observed. RLQ and LLQ trocars were removed under direct laparoscopic visualization. Pneumoperitoneum was released into the atmosphere. Infraumbilical trocar was removed under direct laparoscopic visualization to ensure no herniation of bowel or omentum. Skin incisions were reapproximated with 3-0 Vicryl. Dermabond was applied over closed skin incisions. Attention was turned to the vagina. Specimen was removed from the vagina and handed off of the sterile field. Catheter was removed from the bladder. Patient was awakened from anesthesia and taken to recovery in stable condition. Condition: stable Disposition: floor Specimens:: Uterus, cervix, bilateral fallopian tubes Complications:: None
--- NOTE | 2024-05-25 10:13 | HMH.PHAINT1 ---
Pharmacy Intervention Comments: MEDICATION RECONCILIATION COMPLETED ON PATIENT USING EXTERNAL FILL HISTORY FROM PHARMACY. -KENDRA LOPEZ, JOSELIND
[2024-05-25] MEDS: LACTATED RINGERS 1000ML 1,000 ML 125 ML IV ×3 (10:22→19:00)
[2024-05-25] MEDS: HYDROMORPHONE 2MG/ML SYRINGE 1 MG IV ×2 (10:26→18:03)
--- NOTE | 2024-05-25 12:15 | PC.NURSE ---
Pt ambulated to the bathroom and voided 100ml of clear yellow urine, pt did pericare and then washed up and ambulated back to the bed, this RN was present. SCDs remain on and IV fluids are running.
[2024-05-25] MEDS: SENNOSIDES 8.6MG/DOCUSATE 50MG TABLET 1 TAB PO (14:00)
--- NOTE | 2024-05-25 15:00 | PC.NURSE ---
Pt ambulated to the bathroom and voided 400ml clear yellow urine, pt provided pericare and ambulated back to bed without problems. Pty demonstrated the incentive spirometer, 2250mmhg. Pt was given toradol slow IV push per order. Nurse call button is within reach.
[2024-05-25] MEDS: KETOROLAC 30MG/ML VIAL 30 MG IV ×2 (15:12→21:01)
[2024-05-25] MEDS: CEFAZOLIN SODIUM 1 GM in 0.9 % SODIUM CHLORIDE 50 ML IV ×2 (15:15→23:51)
[2024-05-25] MEDS: MECLIZINE 12.5MG TABLET 12.5 MG PO (17:58)
--- NOTE | 2024-05-25 18:03 | PC.NURSE ---
Pt given Meclizine 12.5mg po for her c/o feeling seasick pt is also requesting pain management for lower abdominal pain rated 6 out of 10, pt given Dilaudid 1mg IV push. Pt has eaten most of her dinner and tolerated it well. Pt is ambulating to the bathroom independently as needed. SO remains in the room for support. Pt is given a manual breastpump at this time b/c she is still her baby at night time and is starting to feel full. Pt plans to just dump the milk that she pumps b/c her baby wouldn't take the milk from a bottle. Pt denies any further needs.
[2024-05-25] MEDS: ONDANSETRON 4MG/2ML VIAL 4 MG IV (18:54)
--- NOTE | 2024-05-25 18:54 | PC.NURSE ---
Pt c/o nausea and is requesting medication, Zofran 4mg iv push given. Pt did vomit in an emesis bag prior to the zofran being given.
--- NOTE | 2024-05-25 19:13 | PC.NURSE ---
All charting and care completed by Cassandra Echeverria RN was completed under my direct supervision
[2024-05-25] MEDS: SERTRALINE 50MG TABLET 50 MG PO (21:01)
[2024-05-25] MEDS: POLYETHYLENE GLYCOL 3350 17 GM PACKET PO (21:01)
[2024-05-25] MEDS: OXYCODONE 5MG IMMEDIATE RELEASE TABLET 5 MG PO (23:52)
[2024-05-26] MEDS: KETOROLAC 30MG/ML VIAL 30 MG IV ×2 (03:31→09:24)
[2024-05-26] MEDS: ACETAMINOPHEN 500MG TAB 1000 MG PO ×2 (03:31→09:24)
[2024-05-26] MEDS: LACTATED RINGERS 1000ML 1,000 ML 125 ML IV (03:32)
[2024-05-26 03:36] VITALS: BP 118/53; PULSE 76; RESP 15; TEMP 36.7; O2SAT 97
--- NOTE | 2024-05-26 03:43 | PC.NURSE ---
Patient lung sounds are clear throughout bilaterally. Bowel sounds are active. Patient surgical sites are C/D/I, with dermabond noted to all 3 sites. Those sites are open to air. Patient has had no acute events thus far.
[2024-05-26 06:56] LABS: Basophils % 0.2 % (0.1-2.0); Eosinophils % 0.2 % (0.1-12.0); Hematocrit 28.1 % (37.0-47.0); Hemoglobin 9.5 g/dL (12.2-16.2); Lymphocytes # 1.6 K/mm3 (0.7-4.5); Lymphocytes % 29.8 % (10-50); Mean Corpuscular HGB Conc 33.8 g/dL (31.8-35.4); Mean Corpuscular Hemoglobin 30.4 pg (27.0-31.2); Mean Corpuscular Volume 90.1 fl (81-99); Monocytes # 0.5 K/mm3 (0.1-1.0); Neutrophils # 3.2 K/mm3 (1.8-7.8); Neutrophils % 60.6 % (37.0-80.0); Platelet Count 140 K/mm3 (142-424); Red Blood Count 3.12 M/mm3 (4.20-5.40); Red Cell Distribution Width 12.8 % (11.5-17.5); White Blood Count 5.2 K/mm3 (4.8-10.8)
[2024-05-26 07:33] LABS: Alanine Aminotransferase 26 U/L (12-78); Albumin Level 3.1 g/dl (3.5-5.0); Albumin/Globulin Ratio 1.4 (1.1-1.8); Alkaline Phosphatase 91 U/L (38-126); Aspartate Amino Transferase 34 U/L (14-36); Bilirubin,Total 0.2 mg/dl (0.2-1.3); Blood Urea Nitrogen 8 mg/dl (7-17); Calcium 8.9 mg/dl (8.4-10.2); Carbon Dioxide 27 mmol/L (22.0-30.0); Chloride 108 mmol/L (98-107); Creatinine Clearance Estimated 143 mL/min (50-200); Estimated Glomerular Filt Rate 122 ml/min (>60); GFR (African American) 147 ML/MIN (>60); Globulin 2.2 g/dL (1.3-3.2); Glucose 91 mg/dl (74-100); Sodium 140 mmol/L (136-145); Total Protein,Serum 5.3 g/dl (6.3-8.2)
[2024-05-26 07:48] LABS: Anion Gap 8.4 mEq/L (5-15); Potassium 3.4 mmoL/L (3.5-5.1)
--- NOTE | 2024-05-26 08:13 | PC.NURSE ---
here to see pt.
[2024-05-26 08:27] VITALS: BP 112/58; PULSE 83; RESP 18; TEMP 36.5; O2SAT 100
[2024-05-26 08:30] VITALS: O2SAT 100
--- NOTE | 2024-05-26 08:30 | EXP.DC.SUM ---
General Admission date:: 05/25/24 Discharge date: 05/26/24 HPI HPI HPI: POD # 1 s/p TLH, BS Feeling well overall. Pain controlled. Voiding without difficulty and passing flatus. Tolerating regular diet. No nausea or vomiting. Denies fever/chills, chest pain and shortness of breath. No lower extremity swelling. Ambulating well ad sandra. Hospital Course Hospital Course Hospital Course: Ms Elena Mascorro is a 23 yo P3013 who presents to [facility] for scheduled surgery. She complains of chronic pelvic pain. She admits she never started norethindrone 0.35 mg. She does not like the way hormones make her feel. She has not had a period since before delivery. She has history of endometriosis and PCOS. She reports pelvic pain is constant and intercourse is very painful. She admits to spotting after intercourse. P3013. History of x 3. She has had two diagnostic laparoscopies in the past for endometriosis. She is complete with childbearing and desires definitive surgical intervention with hysterectomy. Pelvic ultrasound 01/04/24 demonstrated 1. Anteverted uterus normal in shape and size. The endometrium is thin. 2. Within the anterior myometrium there are hyperechoic areas of questionable significance. 3. Both ovaries are seen and appear polycystic. 4. No fluid in the cul-de-sac. Repeat pelvic ultrasound 02/21/24 demonstrated 1. Anteverted uterus normal in shape and size. The endometrium is thin measuring 3 mm. 2. There continue to be some hyperechoic calcified areas within the myometrium. 3. Both ovaries are seen and appear polycystic. 4. No fluid in the cul-de-sac. She underwent total laparoscopic hysterectomy with bilateral salpingectomy on 05/25/24. She did well postoperatively. Feeling well overall. Pain controlled. Voiding without difficulty and passing flatus. Tolerating regular diet. No nausea or vomiting. Denies fever/chills, chest pain and shortness of breath. No lower extremity swelling. Ambulating well ad sandra. Vital signs stable, afebrile. Heart regular rate and rhythm. Lungs clear to auscultation. Abdomen soft, appropriate mild tenderness to palpation with normal bowel sounds. No lower extremity edema or calf tenderness. Normal hospital course. She was discharged home on postop day # 1 with instructions to follow-up in the office in 2 weeks or sooner if needed. Exam Data for Last 24 hours Vital signs and Labs for Last 24 Hours: Temp Pulse Resp BP Pulse Ox O2 Del Method 97.7 F 83 18 112/58 L 100 Room Air 05/26/24 08:27 05/26/24 08:27 05/26/24 08:27 05/26/24 08:27 05/26/24 08:27 05/26/24 08:27 Laboratory Results - last 24 hr 05/26/24 06:44: WBC 5.2, RBC 3.12 L D, Hgb 9.5 L, Hct 28.1 L, MCV 90.1, MCH 30.4, MCHC 33.8, RDW 12.8, Plt Count 140 L, MPV 10.0, Neut % (Auto) 60.6, Lymph % (Auto) 29.8, Bates % (Auto) 9.0, Eos % (Auto) 0.2, Baso % (Auto) 0.2, Neut # (Auto) 3.2, Lymph # (Auto) 1.6, Bates # (Auto) 0.5, Eos # (Auto) 0.0, Baso # (Auto) 0.0, Sodium 140, Potassium 3.4 L D, Chloride 108 H, Carbon Dioxide 27, Anion Gap 8.4, BUN 8 D, Creatinine 0.60, Estimated Creat Clear 143, Estimated GFR 122, Est GFR ( Amer) 147, Glucose 91, Calcium 8.9, Total Bilirubin 0.2, AST 34, ALT 26, Alkaline Phosphatase 91, Total Protein 5.3 L D, Albumin 3.1 L, Globulin 2.2, Albumin/Globulin Ratio 1.4 I & O for Last 24 hours: Intake & Output 05/23/24 05/24/24 05/25/24 05/26/24 23:59 23:59 23:59 23:59 Intake Total 1200 / 1200 Output Total 1700 / 1700 400 / 400 Balance -500 / -500 -400 / -400 Weight 139 lb Constitutional Constitutional: no acute distress and cooperative *Routine HEENT Exam Head: Present normocephalic and atraumatic Eye: Absent conjunctivae pink ENT: Present mucous membranes moist *Routine Neck Exam Neck: Present full ROM *Routine Respiratory Exam Respiratory: Present CTA bilaterally and normal respiratory effort *Routine Cardiovascular Exam Cardiovascular: Present RRR *Routine Abdominal Exam Abdominal: Present soft, normoactive bowel sounds and tenderness (appropriate postop mild tenderness to palpation); Absent distended *Routine Rectal Exam Patient deferred: visual exam *Routine Exam Patient deferred: external exam *Routine Extremities Exam Extremities: Present full ROM; Absent edema or calf tenderness Routine Psychiatric Exam Psychiatric: Present normal affect and cooperative Results Data Completed and Pending Labs on day of discharge: Labs from last 24 hours 05/26/24 06:44 WBC 5.2 RBC 3.12 L D Hgb 9.5 L Hct 28.1 L MCV 90.1 MCH 30.4 MCHC 33.8 RDW 12.8 Plt Count 140 L MPV 10.0 Neut % (Auto) 60.6 Lymph % (Auto) 29.8 Bates % (Auto) 9.0 Eos % (Auto) 0.2 Baso % (Auto) 0.2 Neut # (Auto) 3.2 Lymph # (Auto) 1.6 Bates # (Auto) 0.5 Eos # (Auto) 0.0 Baso # (Auto) 0.0 Sodium 140 Potassium 3.4 L D Chloride 108 H Carbon Dioxide 27 Anion Gap 8.4 BUN 8 D Creatinine 0.60 Estimated Creat Clear 143 Estimated GFR 122 Est GFR ( Amer) 147 Glucose 91 Calcium 8.9 Total Bilirubin 0.2 AST 34 ALT 26 Alkaline Phosphatase 91 Total Protein 5.3 L D Albumin 3.1 L Globulin 2.2 Albumin/Globulin Ratio 1.4 DS: Diagnosis Discharge Diagnosis (1) S/P laparoscopic hysterectomy: Status: Acute Code(s): Z90.710 - Acquired absence of both cervix and uterus Problem details: SAHIL GOODWIN on 05/25/24 (2) Chronic pelvic pain in female: Status: Acute Code(s): R10.2 - Pelvic and perineal pain; G89.29 - Other chronic pain (3) Dyspareunia: Status: Acute (4) PCOS (polycystic ovarian syndrome): Status: Acute Code(s): E28.2 - Polycystic ovarian syndrome (5) History of endometriosis: Status: Acute Code(s): Z87.42 - Personal history of other diseases of the female genital tract (6) MATTIE (stress urinary incontinence, female): Status: Acute Code(s): N39.3 - Stress incontinence (female) (male) Meds Home Medications and Allergies Home Medications ?Medication ?Instructions ?Recorded ?Confirmed ?Type sertraline 50 mg tablet (Zoloft) 50 mg PO DAILY 12/31/23 05/24/24 History fluticasone propionate 50 2 spray intranasal DAILY #16 grams 04/17/24 05/24/24 Rx mcg/actuation nasal spray,suspension (Flonase Allergy Relief) ibuprofen 800 mg tablet 800 mg PO Q8H PRN pain #20 tabs 05/26/24 Rx oxycodone 5 mg tablet 5 mg PO Q4HP PRN Moderate Pain 05/26/24 Rx (4-6) #20 tabs New Prescriptions to Start Prescriptions: Kori Romano oxycodone Kori Domingo Allergies Allergy/AdvReac Type Severity Reaction Status Date / Time Sulfa (Sulfonamide Allergy Unknown Rash Verified 05/25/24 07:08 Antibiotics) (SULFA (SULFONAMIDE ANTIBIOTICS)) dextromethorphan Allergy Unknown Verified 05/25/24 10:45 allergy reaction Discharge Plan Disposition Patient Disposition: Home, Self-Care Condition: Good Discharge Order Discharge Orders: Discharge Order (Routine); Ordered 05/26/24 Ordered By: Kori Domingo Follow up Plan Follow up with: Kori Domingo DO [Staff Physician] - 2 weeks Prescriptions/Medication Reconciliation: New oxycodone 5 mg Tablet 5 mg PO Q4HP PRN (Reason: Moderate Pain (4-6)) Qty: 20 0RF ibuprofen 800 mg tablet 800 mg PO Q8H PRN (Reason: pain) Qty: 20 0RF Continued sertraline [Zoloft] 50 mg tablet 50 mg PO DAILY fluticasone propionate [Flonase Allergy Relief] 50 mcg/actuation spray,suspension 2 spray intranasal DAILY Qty: 16 0RF Rx Instructions: administer into each nostril daily Problem Reconciliation Problems Reviewed?: Yes Patient Discharge Instructions ACTIVITY: Limited activity DIET: continue same diet and regular diet Additional Instructions: Additional Instructions: You had a total laparoscopic hysterectomy and bilateral saplingectomy. This means that your uterus, cervix and fallopian tubes were removed. The top of your vagina is closed with dissolvable sutures. You will follow-up in office for a postop visit at 2 weeks and at 6 weeks. At your 6-week postop appointment you will have a pelvic exam to ensure the top of your vagina is healing well. Discharge: 1. Take 800 mg Ibuprofen every 8 hours as needed for pain. You can also take 1000 mg of Tylenol in between doses, every 6-8 hours and Oxycodone 5 mg, 1 tablet every 4-6 hours or more as needed. 2. Take Miralax twice daily for the next 3 days and then take as needed to help prevent constipation Activity: - No lifting more than 5 lbs for 6 weeks. - No driving for 7 days and/or while you are taking narcotic pain medication. - You have three incisions on your abdomen that are closed with dissolvable stitches and surgical glue. Wound care - You have surgical glue covering your incision. This can come off in 7-10 days. Vaseline will break down the compound and remove the glue - You have stitches under your skin which will dissolve over the next 6 weeks as your body heals - Keep your wound clean and dry, ok to wash with soap and water but pat thoroughly dry Please call the office or return to the ER if you have any of the followin. heavy vaginal bleeding 2. pain that does not respond to your narcotic pain medication 3. dizziness or lightheadedness such that you lose consciousness 4. abnormal discharge from your incisions Questions or concerns: It is my privilege to be your doctor. Please let me know if you have other questions or concerns. Kori Domingo DO [facility] [place], [place] [address] Patient Instructions: DI for Hysterectomy, Hysterectomy -- Laparoscopic Surgery Print Language: Namibian Providers Primary Care Provider: Mellisa Cosetllo Admit Provider: Kori Domingo Attending Provider: Kori Domingo
[2024-05-26] MEDS: POLYETHYLENE GLYCOL 3350 17 GM PACKET PO (09:24)
--- NOTE | 2024-05-26 09:33 | PC.NURSE ---
IV saline lock discontinued at this time. Catheter intact. Tolerated well. 2x2 gauze and coban applied to site.
--- NOTE | 2024-05-26 10:01 | PC.NURSE ---
Discharge instructions given. Pt verbalized understanding.
--- NOTE | 2024-05-29 13:08 | P.PNANES_ITS ---
[facility] Anesthesia Record Part II Anesthesia Record Part II Discharge Time: 10:07 Destination: Obstetric PACU nurse assessment reviewed?: Yes Patient Condition:: Good Anesthesia Complications:: None Swallowing reflex intact?: Yes Airway Patency: Patent Cyanosis?: No Blood Pressure: 135/80 SaO2: 100 Respiratory Rate: 16 Pulse Rate: 69 Temperature: 97.6 F Mental Status: Alert & Oriented Pain level:: 5 Nausea and/or vomitting:: None Intake, IV Amount: 0 Hydration: Adequate
[2024-05-29 13:10] VITALS: BP 135/80; PULSE 69; RESP 16; TEMP 36.4; O2SAT 100
== END 2024-05-26 10:18 | disposition home or self-care (01) ==
LOC: OB 10:13
PROVIDERS: Admitting Provider Obstetrics & Gynecology; PCP Physician Assistant; Visit Provider Obstetrics & Gynecology
PROC: (CPT 58552; principal; 2024-05-25 07:30)
DX: R10.2 Pelvic and perineal pain (principal); E28.2 Polycystic ovarian syndrome; N39.3 Stress incontinence (female) (male)
CPT/HCPCS: 58552; 36415; 80048; 80053; 84703; 85025; 96374; J3490; G0378; J0131; J0690; J1100; J1171; J1885; J2250; J2405; J3010; J7120

== ENCOUNTER 2024-05-31 10:09 | Outpatient (CLI) | payer BC, OTHER, SELFPAY ==
[2024-05-31 10:22] LABS: Basophils % 0.5 % (0.1-2.0); Eosinophils # 0.2 K/mm3 (0.0-0.4); Eosinophils % 3.7 % (0.1-12.0); Hemoglobin 12.8 g/dL (12.2-16.2); Lymphocytes # 1.7 K/mm3 (0.7-4.5); Lymphocytes % 29.1 % (10-50); Mean Corpuscular HGB Conc 33.7 g/dL (31.8-35.4); Mean Corpuscular Hemoglobin 30.1 pg (27.0-31.2); Mean Corpuscular Volume 89.4 fl (81-99); Mean Platelet Volume 10.2 fl (7.4-10.4); Monocytes # 0.5 K/mm3 (0.1-1.0); Monocytes % 7.9 % (1.7-9.3); Neutrophils # 3.5 K/mm3 (1.8-7.8); Neutrophils % 58.6 % (37.0-80.0); Platelet Count 207 K/mm3 (142-424); Red Blood Count 4.25 M/mm3 (4.20-5.40)
[2024-05-31 11:25] LABS: Albumin Level 4.7 g/dl (3.5-5.0); Chloride 106 mmol/L (98-107); Sodium 141 mmol/L (136-145)
[2024-05-31 11:26] LABS: Potassium 4.6 mmoL/L (3.5-5.1)
[2024-05-31 11:28] LABS: Alanine Aminotransferase 88 U/L (12-78); Anion Gap 11.6 mEq/L (5-15); Aspartate Amino Transferase 73 U/L (14-36); Blood Urea Nitrogen 15 mg/dl (7-17); Carbon Dioxide 28 mmol/L (22.0-30.0); Estimated Glomerular Filt Rate 122 ml/min (>60); GFR (African American) 147 ML/MIN (>60)
[2024-05-31 11:29] LABS: Alkaline Phosphatase 137 U/L (38-126); Bilirubin,Total 0.6 mg/dl (0.2-1.3); Calcium 9.7 mg/dl (8.4-10.2); Globulin 2.3 g/dL (1.3-3.2); Glucose 94 mg/dl (74-100)
[2024-06-01 06:03] LABS: Hep A Ab, IgM Negative (Negative)
== END 2024-05-31 23:59 | disposition home or self-care (01) ==
PROVIDERS: PCP Physician Assistant; Visit Provider Obstetrics & Gynecology
DX: R42 Dizziness and giddiness (principal); Z90.710 Acquired absence of both cervix and uterus; R74.8 Abnormal levels of other serum enzymes
CPT/HCPCS: 36415; 80053; 85025; 86709

== ENCOUNTER 2024-06-08 14:30 | Outpatient (CLI) | payer BC, OTHER, SELFPAY ==
[2024-06-08 15:18] LABS: Alanine Aminotransferase 25 U/L (12-78); Albumin Level 4.7 g/dl (3.5-5.0); Albumin/Globulin Ratio 2.1 (1.1-1.8); Alkaline Phosphatase 117 U/L (38-126); Anion Gap 14.3 mEq/L (5-15); Aspartate Amino Transferase 30 U/L (14-36); Bilirubin,Total 0.5 mg/dl (0.2-1.3); Blood Urea Nitrogen 19 mg/dl (7-17); Calcium 9.7 mg/dl (8.4-10.2); Carbon Dioxide 27 mmol/L (22.0-30.0); Chloride 104 mmol/L (98-107); Estimated Glomerular Filt Rate 122 ml/min (>60); GFR (African American) 147 ML/MIN (>60); Globulin 2.2 g/dL (1.3-3.2); Glucose 87 mg/dl (74-100); Potassium 4.3 mmoL/L (3.5-5.1); Sodium 141 mmol/L (136-145); Total Protein,Serum 6.9 g/dl (6.3-8.2)
== END 2024-06-08 23:59 | disposition home or self-care (01) ==
LOC: LAB 14:31
PROVIDERS: PCP Physician Assistant; Visit Provider Obstetrics & Gynecology
DX: R53.83 Other fatigue (principal)
CPT/HCPCS: 36415; 80053

== ENCOUNTER 2024-08-16 16:02 | Outpatient (CLI) | payer BC, OTHER, SELFPAY ==
--- NOTE | 2024-08-16 16:00 | US_ITS ---
PROCEDURE: US TRANSVAGINAL CLINICAL INDICATION: pelvic cramping, spotting COMPARISON: CT ABDPELW CT abdomen pelvis w con from 11/07/[address] ABDOMEN PELVIS W CON from 09/09/2020 US US TRANSVAGINAL from 01/04/2024 US US TRANSVAGINAL from 02/21/2024 FINDINGS: Transvaginal sonographic images of the pelvis were obtained. UTERUS: The uterus is surgically absent. The vaginal vault is intact. LEFT OVARY: 3.3cmx1.9 cmx1.8cm with a volume of 6.2ml. There are multiple small peripheral follicles consistent with a polycystic ovary. RIGHT OVARY: 4.3cmx 2.9 cmx1.8 cm with a volume of 11.7ml. There are multiple small peripheral follicles consistent with a polycystic ovary. Both ovaries are seen and appear normal. Doppler flow to both ovaries are seen. There is no fluid in the cul-de-sac. IMPRESSION: 1. The uterus has been surgically removed. The vaginal vault is intact. 2. Both ovaries are seen and appear polycystic with multiple small peripheral follicles. 3. No fluid in the cul-de-sac. Dictated by: Mario Bhagat MD 08/16/2024 18:36 Mario Bhagat MD in OV 08/16/2024 18:36
== END 2024-08-16 23:59 | disposition home or self-care (01) ==
LOC: RAD 16:02
PROVIDERS: PCP Obstetrics & Gynecology; Visit Provider Obstetrics & Gynecology
DX: N93.9 Abnormal uterine and vaginal bleeding, unspecified (principal)
CPT/HCPCS: 76830

== ENCOUNTER 2025-01-02 15:13 | Emergency (ER) | payer OTHER, SELFPAY ==
--- OUTSIDE RECORDS SUMMARY | 2024-02-04 04:30 | XMS_ITS ---
Author Organization [facility] Address [address] [facility] [address] [place] [address] Care Team Providers Care Body Man Name Role Phone WiliShruti Unavailable [phone] Results Component Value Reference Range Notes *US Pelvis Complete Transabd ominal/Vaginal (Non-OB) Reviewed date:02/04/2024 09:19:13 AM Interpretation: Performing Lab: Notes/Report: [facility] Women's Health Transvaginal Pelvic Study Report Name: ELENA SANCHEZ Accession/Encounter No:[id number] : 2000 Age: 23 Gender: F Study Date: Feb 04, 2024 Study Time: 08:33 AM Reading Group: Shruti Rasheed MD Referring Group: Shruti Rasheed MD Ordering Phys: Shruti Rasheed MD Sampler And Test Preparer: Lalitha Gardner RDMS Equipment: Aff[employer]i 30 Study [...] 1 of 1 [facility] - , [facility] REASON FOR VISIT appt confirmed-cv....pt wants second opinion; she was told by current FILLING AND PACKING SUPERVISOR office that she had abnormal uterus lining Social History Sex Assigned At : Social History Observation Description Sex Assigned At Female Encounters Encounter Location Date Provider Diagnosis [facility] [address] [place] [address] 02/04/2024 Shruti Rasheed Abnormal uterine bleeding N93.9 Assessments Encounter Date Diagnosis (ICD Code) Assessment Notes Treatment Notes Treatment Clinical Notes Section Notes 02/04/2024 Abnormal uterine bleeding (ICD-10 - N93.9) Plan Of Treatment No Information Progress Notes * Elena SANCHEZ CDOB:2000 (24 yo F)Acc No.[id number]:02/04/2024 Patient: Elena Tamez Provider: Terrell Rasheed MD :2000 A ge:23 Y S ex:Female Date:02/04/2024 Address:[address] [place], [place] [id number] Subjective: * Chief Complaints: * a ppt confirmed-cv....pt wants second opinion; she was told by current FILLING AND PACKING SUPERVISOR office that she had abnormal uterus lining Assessment: * Assessment: 1. A bnormal uterine bleeding - N93.9 Plan: * Treatment: Billing Information: * Procedure Codes: * Electronic signature of Kari Rasheed MD on 01/02/2025 at 03:52 PM EDT Sign off status: Pending Visit Status: Stephane DURAN (Check Out) * Provider: Terrell Rasheed MD Date: 02/04/2024 Generated for Alexis chavez/Jeremy/Ericitting on: 01/02/2025 03:52 PM EDT
--- OUTSIDE RECORDS SUMMARY | 2024-03-02 11:00 | XMS_ITS ---
Author Organization [facility] Address [address] [place] [id number] Care Team Providers Care Russet Repairer Name Role Phone Dustin Perez Primary Care Provider Mellisa Costello Unavailable [phone] Allergies Allergen (clinical drug ingredient) Drug/Non Drug [...] Status Risk Notes Problem Vitamin D deficiency (04590328) Vitamin D deficiency (E55.9) Active confirmed Problem Abnormal transvaginal ultrasound (R93.89) Active confirmed Vital Signs Blood pressure systolic 110 mm Hg 03/02/20 24 Blood pressure diastolic 70 mm Hg 024 Heart Rate 77 /min 03/02/2024 Height 67 in 03/02/2024 Weight 145.4 lbs 03/02/2024 BMI 22.77 kg/m2 03/02/2024 Encounters Encounter Location Date Provider Diagnosis [facility] [address] [place] [id number] 03/02/2024 Mellisa Trang Vitamin D deficiency E55.9 [...] :2000 A ge:23 Y S ex:Female Date:03/02/2024 Address:[address] [place] [address] [place] Pcp:Dustin Perez Subjective: * Chief Complaints: * 1 . Discuss getting some blood work , and her ultrasounds. * HPI: H PI: 23 year old female presents with c/o Patient is here today for?Pt would like to discuss her ultrasounds. She went to her OBGYN in [place] and they did an ultrasound and she [...] History: E ar Tubes, multiple times , [place] Teeth Extractions 04/2014, tonsillectomy , Adenoidectomy , Laparoscopic surgery for Endo. 05/2018, 03/2019. * Hospitalization/Major Diagno stic Procedure: [facility] , Constipation- [facility] 06/06/2016. * Family History: F [...] * Images: Billing Information: * Visit Code: 17573 Office Visit, Est Pt., Level 3. * Procedure Codes: 85963 PULSE OX. * Electronic signature of MARIANNA Jain on 01/02/2025 at 03:52 PM EDT Sign off status: Pending * Provider: MARIANNA Schwartz Date: 1 Generated for Alexis chavez/Jeremy/eTransmitting on: 0 01/02/2025 03:52 PM EDT History and Physical Notes * HPI (History of Present Illness) Category Sub-Category Detail Notes Category Not es HPI Patient is here today for Pt wou ld like to discuss her ultrasounds. She went to her OBGYN in [place] and they did an ultrasound and she [...]
--- OUTSIDE RECORDS SUMMARY | 2024-07-13 06:30 | XMS_ITS ---
Author Organization [facility] Address [address] [place] [phone] Care Team Providers Care Billposter Name Role Phone Dustin Perez Primary Care Provider Mellisa Costello Unavailable [phone] Allergies Allergen (clinical drug ingredient) Drug/Non Drug [...] a day; Duration: 30 day(s) 12/30/2023 Active Ljijuotho-Tjxftsgl-NI 30-2-10 MG/5ML 5-10 ml Orally 4 times [...] 07/13/2024 Encounters Encounter Location Date Provider Diagnosis [facility] [address] [facility] [address] [place], [place] [phone] 07/13/2024 Mellisa Trang Influenza J11.1 Assessments Encounter [...] Name Sig Start Date Stop Date Notes Wnbiqsbdv-Sitkgypu-RU 30-2-1 0 MG/5ML 5-10 ml Orally 4 [...] :2000 A ge:23 Y S ex:Female Date:07/13/2024 Address:[address] [place] [address] [place], [id number] Pcp:Dustin Perez Subjective: * Chief Complaints: * [...] History: E ar Tubes, multiple times , [place] Teeth Extractions 04/2014, tonsillectomy , Adenoidectomy , Laparoscopic surgery for Endo. 05/2018, 03/2019, partial hysterectomy [facility] 05/2024. * Hospitalization/Major Diagno stic Procedure: [facility] , Constipation- [facility] ER 06/06/2016. * Family History: F [...] auscultation bilaterally. Assessment: * Assessment: 1. [facility] J11.[facility] (Primary) Plan: * Treatment: [...] * Procedure Codes: 9 4760 [place], [address] Flu Test- Nasal Swab, Modifiers: QW , 38460 COVID TEST IN HOUSE, Modifiers: QW , 18937 CAPILLARY BLOOD DRAW, 14473 CBC WITH AUTO DIFF * Follow Up: p rn * Images: Billing Information: * Visit Code: 34593 Office Visit, Est Pt., Level 3. * Procedure Codes: [address] [place]. [address] Flu Test- Nasal Swab. Modifiers: QW 77560 COVID TEST IN HOUSE. Modifiers: QW 03010 CAPILLARY BLOOD DRAW. 40699 CBC WITH AUTO DIFF. * Electronic signature of MARIANNA Jain on 01/02/2025 at 03:52 PM EDT Sign off status: Pending * Provider: MARIANNA Schwartz Date: 0 07/13/2024 Generated for Alexis chavez/Jeremy/eTransmitting on: 0 01/02/2025 [...]
--- OUTSIDE RECORDS SUMMARY | 2024-11-23 06:45 | XMS_ITS ---
Author Organization Mike Address 1210 [facility] [address] [phone] Care Team Providers Care Food Service Counter Clerk Name Role Phone Dustin Perez Primary Care Provider Mellisa Costello [phone] Allergies Allergen (clinical drug ingredient) Drug/Non Drug Allergy documented on EMR Reaction Allergy Type Onset Date Status dextromethorphan / promethazine Promethazine-DM tongue swelling Drug Allergy Active Substance with sulfonamide structure and antibacterial mechanism of action (substance) Sulfa Antibiotics Unknown Drug Allergy Active REASON FOR VISIT AWV Encounters Encounter Location Date Provider Diagnosis [facility] [address] [id number] 11/23/2024 Mellisa Costello Plan Of Treatment No Information Progress Notes * DOUG SANCHEZB:2000 ( 24 yo F)Acc No.[id number]:11/23/2024 Annual Wellness Visit Patient: ANNE-MARIE COFFMAN Provider: MARIANNA Schwartz :2000 A ge:24 Y S ex:Female Date:11/23/2024 Address:[address] [place] [address] [facility] Pcp:Dustin ePrez Subjective: * Chief Complaints: * 1 . AWV. * ROS: D ERMATOLOGY: no R mindy. n o H gerald. G ASTROENTEROLOGY: no N ausea. n o V omiting. n o D iarrhea.? U ROLOGY: no D ifficulty urinating. n o B lood in urine. * Medical History: A llergies, Endometriosis, PCOS. * Surgical History: E ar Tubes, multiple times , [place] Teeth Extractions 04/2014, tonsillectomy , Adenoidectomy , Laparoscopic surgery for Endo. 05/2018, 03/2019, partial hysterectomy [facility] 05/2024. * Hospitalization/Major Diagno stic Procedure: M [facility]- [facility] , Constipation- [facility] ER 06/06/2016. * Family History: F [...] status: Pending * Provider: MARIANNA Schwartz Date: 11/23/2024 Generated for Alexis chavez/Jeremy/Ericitting on: 01/02/2025 03:52 PM EDT
--- NOTE | 2025-01-02 15:45 | PC.NURSE ---
pt ambulatory to restroom without complications
--- NOTE | 2025-01-02 15:48 | PC.NURSE ---
UA sent to lab
--- OUTSIDE RECORDS SUMMARY | 2025-01-02 15:52 | XMS_ITS | Clinical Summary ---
Author Organization [facility] Address [address] [place] [address] Care Team Providers Care Primer Inserting Machine Adjuster Name Role Phone Mellisa Costello Primary Care Provider [phone] Allergies Active Allergy Reactions Criticality Noted Date Comments Dextromethorphan Angioedema High 06/27/2021 Sulfa Antibiotics Rash Low 09/17/2019 Medications Vit-Fe Fumarate-FA ( 27-1) 27-1 MG tablet tablet Take 1 tablet by mouth Daily. Active FLUoxetine (PROzac) 20 MG capsule Take 20 mg by mouth Daily. Active docusate sodium 100 MG capsule Take 1 capsule by mouth 2 (Two) Times a Day. 60 capsule 06/29/2021 9:01 AM EST 2 Active ibuprofen (ADVIL,MOTRIN) 600 MG tablet Take 1 tablet by mouth Every 6 (Six) Hours As Needed for Mild Pain . 60 tablet 06/29/2021 9:01 AM EST 2 Active ferrous sulfate 325 (65 FE) MG tablet Take 1 tablet by mouth Daily With Breakfast. 30 tablet 06/29/2021 9:01 AM EST 2 Active Additional Information Patient not taking.Reported on 11/11/2022 magnesium oxide (MAG-OX) 400 MG tablet Take 1 tablet by mouth Daily. Active vitamin D (ERGOCALCIFEROL ) 1.25 MG (96339 UT) capsule capsule Take 1 capsule by mouth 1 (One) Time Per Week. Active vitamin B-12 (CYANOCOBALAMIN ) 1000 MCG tablet Take 1 tablet by mouth Daily. Active Active Problems Problem Noted Date Diagnosed Date hydronephrosis in , antepartum co ndition 12/30/2022 Assessment & Plan (02/24/2023 10:49 AM EDT): Ultrasound at the time of anatomy showed mild right renal pelvis dilation. Today's ultrasound does not show renal pelvis dilation of either kidney. Patient previously had NIPT that was low risk. Today's ultrasound also shows normal growth with normal amniotic fluid. No further follow-up ultrasounds are scheduled here. Please reach out if any questions arise. Assessment & Plan (12/30/2022 12:00 PM EDT): The fetus has bilateral mild renal pyelectasis. The pelviureteric junctions are dilated with AP diameters of normal mm on the left and 4-5 mm on the right. At this gestational age this is regarded as mildly dilated. The dilatation is extrarenal (does not penetrate the parenchyma) consistent with stage 1 hydronephrosis. There is no extension of this dilatation into the kidney pelves bilaterally suggesting that there is no significant UPJ obstruction. There are no signs of ureterocele or duplication of the ureteric system. There is normal amniotic fluid volume. The implications of this ultrasound finding were explained to the patient. The majority of antenatally diagnosed cases of hydronephrosis resolve spontaneously in the period with only 3 to 4% requiring surgical treatment. A risk of 1% for Down syndrome or some other chromosomal aneuploidy has been quoted with this finding. She was informed that very occasionally the kidney may dilate substantially but that only in a situation where both kidneys are threatened or should oligohydramnios develop would she be delivered early for hydronephrosis. I have told the patient that her infant will need to be followed by a machine bender or pediatric urologist after delivery if the renal pelvis dilatation is > 7 mm and her infant should receive antibiotic therapy until a renal ultrasound is performed. We will reassess this 8 weeks. (spontaneous vaginal delivery) 06/27/2021 Palpitations 06/27/2021 Resolved Problems Problem Noted Date Diagnosed Date Resolved Date Term 06/26/2021 06/27/2021 Decreased movement 05/14/2021 False labor after 37 weeks o f gestation without delivery 01/14/2020 06/27/2021 Low back pain during pregnan cy, second trimester 11/07/2019 06/27/2021 10/26/2019 06/27/2021 Bleeding from genital tract during 0 11/07/2019 Family History Medical History Relation Name Comments No Known Problems Father Diabetes Maternal Grandmother No Known Problems Mother Pancreatic cancer Paternal Grandfather Relation Name Status Comments Father Alive Maternal Grandmother Mother Alive Paternal Grandfather Social History Tobacco Use Types Packs/Day Years Used Date Smoking Tobacco: Never Smokeless Tobacco: Never Alcohol Use Standard Drinks/Week Comments Never 0 (1 standard drink = 0.6 oz pur e alcohol) AUDIT-C Answer Date Recorded Q1: How often do you have a drink containing alc ohol? Never 09/17/2019 Average Number of Drinks Not on file 020 Frequency of Binge Drinking Not on file 07/2019 [place] Depression Scale Answer Date Recorded [place] Depression Scale Total 3 06/27/2021 The thought of harming myself has occurred to me . Never 06/27/2021 Abuse Screen Answer Date Recorded Unsafe at Home or Work/School Not on file Feels Threatened by Someone? Not on file 01/2023 Does Anyone Keep You from Co ntacting Others or Doint Things Outside the Home? Not on file 02/22/2023 Physical Sign of Abuse Present Not on file 1 Housing Stability Answer Date Recorded Current Living Arrangements Not on file 01/2023 Potentially Unsafe Housing Conditions Not on ana e 02/22/2023 Family and Community Support Answer Adelfo e Recorded Help with Day-to-Day Activities Not on file 02/22/2023 Lonely or Isolated Not on file 02/22/2023 Employment Answer Date Recorded Do you want help finding or keeping work or a bina b? Not on file 02/22/2023 Disabilities Answer Date Recorded Concentrating, Remembering, or Making Decisions Difficulty Not on file 02/22/2023 Doing Errands Independently Difficulty Not on fi le 02/22/2023 Education Answer Date Recorded Help with school or training? Not on file Preferred Language Not on file 02/22/2023 Comments No Sex and Gender Information Value Date Recorded Sex Assigned at Not on file Legal Sex Female 1:18 PM EDT Gender Identity Not on file Sexual Orientation Not on file Last Filed Vital Signs Vital Sign Reading Time Taken Comments Blood Pressure 115/58 02/24/2023 10:23 AM EDT Pulse 73 06/29/2021 7:00 AM EST Temperature 36.6 C (97.9 F) 06/29/2021 7:00 AM EST Respiratory Rate 16 06/29/2021 7:00 AM EST Oxygen Saturation 100% 06/27/2021 12:45 PM EST Inhaled Oxygen Concentration - - Weight 70.8 kg (156 lb) 02/24/2023 10:23 AM EDT Height 167.6 cm (5' 6 ) 06/26/2021 6:17 PM EST Body Mass Index 25.18 06/26/2021 6:17 PM EST Plan of Treatment Health Maintenance Due Date Last Done Comments Annual Gynecologic Pelvic an d Breast Exam 2000 HPV VACCINES (1 - 3-dose series) 2013 ANNUAL PHYSICAL 06/29/2021 COVID-19 Vaccine ( - 2023-2 5 season) 2024 INFLUENZA VACCINE 02/14/2025 TDAP/TD VACCINES (2 - Td or Tdap) 01/03/2030 020 HEPATITIS C SCREENING Completed 12/31/2020 Pneumococcal Vaccine 0-49 Aged Out No longer eligible based on patient's age to complete this topic Procedures Procedure Name Priority Date/Time Associated Diagnosis Comments HEPATITIS C ANTIBODY Routine 12/31/2020 12:56 PM EDT care, subsequent , first trimester 12 weeks gestation of from Last 3 Months or Most Recently Relevant to Health Maintenance Results * Hepatitis C Antibody (12/31/2020 12:56 PM EDT) Hepatitis C Ab Non-Reacti ve Non-Reacti ve 12/31/2020 7:34 PM EDT [facility] Blood Venipuncture / Unknown 12/31/2020 12:56 PM EDT 12/31/2020 12:57 PM EDT Narrative [facility] - 12/31/2020 7:34 PM EDT Results may be falsely decreased if patient taking Biotin. us Shruti Rasheed MD LAB BLOOD ORDERABLES Final Re sult [facility]
[address] [place] [address], [place] [phone] from Last 3 Months or Most Recently Relevant to Health Maintenance Insurance [facility] Member Subscriber Plan / Payer (Ef fective 2013-Present) Name:Elena Mascorro Relation to Subscriber:Child Name:ELVIA VARELA Date of :1972 (Home) Address: [address] [place] [facility] [address] [place] [address] Payer ID:[id number] (NAIC) Type:Not on file Address: [address] Advance Directives * CPR (Attempt to Resuscitate) (Latest Code Status on File) Date Activated Date Inactivated Comments 06/27/2021 1:45 PM 06/29/2021 1:47 PM Question Answer Comments Code Status (Patient has no pulse and is not breathing): CPR (Attempt to Resuscitate) Medical Interventions (Patie nt has pulse or is breathing): Full * CPR (Attempt to Resuscitate) Date Activated Date Inactivated Comments 05/14/2021 11:40 AM 05/15/2021 12:06 PM Question Answer Comments Code Status (Patient has no pulse and is not breathing): CPR (Attempt to Resuscitate) Medical Interventions (Patie nt has pulse or is breathing): Full Care Teams Primer Inserting Machine Adjuster Relationship Specialty Start Date End Date Mellisa Costello PA [address] [place] [address] [facility] [address] [facility] [address] PCP - General Physician [facility] 02/24/23
--- OUTSIDE RECORDS SUMMARY | 2025-01-02 15:53 | XMS_ITS | Patient Health Record ---
[facility] Organization [facility] [address] [place] [phone] Care Team Providers Care Head Operator Name Role Phone Yuma Dustin Primary Care Provider Mellisa Costello Unavailable [phone] Allergies Allergen (clinical drug ingredient) Drug/Non Drug [...] PM Interpretation: Performing Lab: Notes/Report: Result: Neg Reason For Referral No Information Medications Medication SIG (Take, Route, Frequency, Duration) Notes Start Date End Date Status Ondansetron 4 MG 1 tablet on the tong ue and allow to dissolve Orally three times a day as needed 08/04/2024 Active Sertraline HCl 50 MG 1 tablet Orally Onc e a day; Duration: 30 day(s) 12/30/2023 Active Cipygsyuy-Hxuzohgu-TP 30-2-10 MG/5ML 5-10 ml Orally 4 times a day, prn 07/13/2024 Active Tamiflu 75 MG 1 capsule Orally Twi ce a day; Duration: 5 day(s) 07/13/2024 Active Immunizations Vaccine Route Administration Date Status Comme nts xGardasil IM Intramuscular 01/23/2011 Administered xGardasil IM Intramuscular 03/26/2011 Administered xGardasil IM Intramuscular 08/07/2011 Administered xFluzone (6mos and older)-trivalent IM Intramuscular 03/08/2012 Administered Varivax SC Subcutaneous 11/03/2011 Administered Tetanus Tdap-Adacel (over 7yrs) Unknown 01/04/2020 Administered Tetanus Tdap-Adacel (over 7yrs) Unknown 02/25/2023 Administered ppd ID Intradermal 10/02/2015 Administered Menactra IM Intramuscular 11/03/2011 Administered Problems Problem Type SNOMED Code ICD Code Onset Dates Problem Status W/U Status Risk Notes Problem Viral illness (90532993) Viral illness (B34.9) Active confirmed Problem Vitamin D deficiency (37849137) Vitamin D deficiency (E55.9) Active confirmed Problem Anxiety (69651252) Anxiety (F41.9) Active confirmed Problem Amenorrhea (04503803) Amenorrhea (N91.2) Active confirmed Problem Acute pharyngitis (330463972) Acute pharyngitis due to other specified organisms (J02.8) Active confirmed Problem Constipation (37461951) Constipation, unspecified constipation type (K59.00) Active confirmed Problem Migraine without aura, not refractory (303841597) Migraine without aura and without status migrainosus, not intractable (G43.009) Active confirmed Problem Migraine with aura (2301459) Migraine with aura and without status migrainosus, not intractable (G43.109) Active confirmed Problem Upper respiratory infection (32736894) Upper respiratory tract infection, unspecified type (J06.9) Active confirmed Problem Sleep disorder (70133888) Sleep disorder (G47.9) Active confirmed Problem Refractory migraine (560722865) Intractable migraine without status migrainosus, unspecified migraine type (G43.919) Active confirmed Problem Abnormal transvaginal ultrasound (R93.89) Active confirmed Vital Signs Heart Rate 99 /min 07/13/2024 Blood pressure diastolic 76 mm Hg 07/13/2024 Height 67 in 07/13/2024 Blood pressure systolic 100 mm Hg 07/13/2024 Weight 139.0 lbs 07/13/2024 BMI 21.77 kg/m2 07/13/2024 Encounters Encounter Location Date Provider Diagnosis [facility] [address] [place], [place] [id number] 01/27/2024 Mellisa Costello Back muscle spasm M62.830 [facility] [address] [place], [place] [id number] 03/02/2024 Mellisa Costello Vitamin D deficiency E55.9 ; Abnormal transvaginal ultrasound R93.89 and Vitamin B12 deficiency E53.8 [facility] [address] [place], [place] [id number] 07/13/2024 Mellisa Costello Influenza J11.1 [facility] [address] [place], [place] [id number] 03/02/2024 Dustin Yuma Anxiety F41.9 [facility] [address] [place], [place] [id number] 05/26/2024 Dustin Yuma Anxiety F41.9 [facility] [address] [facility] [address] [place], [place] [id number] 08/04/2024 Mellisa Costello Assessments Encounter Date Diagnosis (ICD Code) Assessment Notes Treatment Notes Treatment Clinical Notes Section Notes 03/02/2024 Abnormal transvaginal ultrasound (ICD-10 - R93.89) [...] fax orders for our labs as well. 05/26/2024 Anxiety (ICD-10 - F41.9) 07/13/2024 Influenza (ICD-10 - J11.1) Patient's 3 children have the flu and she clinically has the flu. Will treat with tamiflu. She states she can take bromfed but no phenergan DM. Will send rx. 03/02/2024 Anxiety (ICD-10 - F41.9) 03/02/2024 Vitamin D deficiency (ICD-10 - E55.9) 01/27/2024 Back muscle spasm (ICD-10 - M62.830) She is still . Will start on prednisone and use heat and massage. 03/02/2024 Vitamin B12 deficiency (ICD-10 - E53.8) Plan Of Treatment No Information Insurance Providers Payer Name Payer Address Payer Phone Subscriber Number Group Number Insured Name Patient Relationship to Insured Coverage Start Date Coverage End Date [employer] [address] [place] [address] [id number] ANNE-MARIE SANCHEZ Self - patient is the insured [facility] [address] [place], [place] [id number] ANNE-MARIE SANCHEZ Self - patient is the insured Medications Administered Medication Instructions Date of Administration Dosage Notes Bicillin LA 1,200,000 01/23/2009 2 mL Medical (General) History Medical History History ICD Code Allergies Endometriosis PCOS Surgical History Surgery Date(Month/Year) Ear Tubes, multiple times [place] Teeth Extractions 04/2014 tonsillectomy Adenoidectomy Laparoscopic surgery for Endo. 05/2018, 03/2019 partial hysterectomy [facility] 05/2024 Hospitalization History Reason Date(Month/Year) Constipation- [facility] ER 06/06/2016 [facility]- [facility] ER
--- OUTSIDE RECORDS SUMMARY | 2025-01-02 15:53 | XMS_ITS | Patient Health Record ---
Author Organization [facility] Address [address] [facility] [address] [place] [address] Care Team Providers Care Sports Medicine Specialist Name Role Phone Shruti Rasheed Unavailable [phone] GaonaHerminia dickey Unavailable [phone] Allergies Allergen (clinical drug ingredient) Drug/Non Drug Allergy documented on EMR Reaction Allergy Type Onset Date Status promethazine Promethazine HCl Unknown Drug Allergy Active sulfamethoxazole / trimethoprim SULFAMETHOXAZOLE-TR IMETHOPRIM Unspecified Drug Allergy 07/18/2019 Active Results Component Value Reference Range Notes *US Pelvis Complete Transabd ominal/Vaginal (Non-OB) Reviewed date:02/04/2024 09:19:13 AM Interpretation: Performing Lab: Notes/Report: [facility] Transvaginal Pelvic Study Report Name: ELENA SANCHEZ Accession/Encounter No:[id number] : 2000 Age: 23 Gender: F Study Date: Feb 04, 2024 Study Time: 08:33 AM Reading Group: Shruti Rasheed MD Referring Group: Shruti Rasheed MD Ordering Phys: Shruti Rasheed MD Electronic Integrated Systems Mechanic: Lalitha Gardner RDMS Equipment: Affiniti 30 Study [...] 1 of 1 Imaging Center - , [facility] [place] Reason For Referral No Information Medications Medication SIG (Take, Route, Frequency, Duration) Notes Start Date End Date Status Sertraline HCl 50 MG Tablet 1 tablet Ora lly Once a day Active Nurtec 75 MG Tablet Disintegrating 1 tablet on the tongue and allow to dissolve Orally Active Social History Tobacco Use: Social History Observation Description Date Details (start date - stop date) Never Smoker NA - NA Sex Assigned At : Social History Observation Description Sex Assigned At Female Social History Sexual History: Social Info Question Answer Notes Sexual History Had sex in the past 12 months (vaginal, oral, or anal)? Yes with Men only Use protection? No Drugs/Alcohol: Social Info Question Answer Notes Drugs Have you used drugs other than those for medical reasons in the past 12 months? No Steroid Use Have you used anabolic (body building) st eroids? No Alcohol Screen Did you have a drink containing alcohol in the past year? No Points 0 Interpretation Negative Tobacco Use: Social Info Question Answer Notes Tobacco Use/Smoking Are you a nonsmoker Additional Findings: Tobacco Non-User Current no n-smoker Tobacco use other than smoking: Are you an other tobac co user? No Problems Problem Type SNOMED Code ICD Code Onset Dates Problem Status W/U Status Risk Notes Problem Endometriosis (406024284) Endometriosis (N80.9) Active confirmed Problem Polycystic ovary syndrome (disorder) (827196438) PCOS (polycystic ovarian syndrome) (E28.2) Active confirmed Problem Gestation period, 34 weeks (46476811) 34 weeks gestation of (Z3A.34) Active confirmed Problem Viral disease of mother during (47892184191970 ) Other viral diseases complicating , unspecified trimester (O98.519) Active confirmed Problem Pain in female genitalia on intercourse (16974718) Dyspareunia in female (N94.10) Active confirmed Problem Abnormal uterine bleeding (93918179774505 ) Abnormal uterine bleeding (N93.9) Active confirmed Problem COVID-19 (718942217) COVID-19 (U07.1) Active confirmed Problem Missed period (60288880) Missed period (N92.6) Active confirmed Problem Abnormal transvaginal ultrasound (R93.89) Active confirmed Problem Third trimester (81858816) Supervision of other normal , third trimester (Z34.83) Active confirmed Supervision of other normal , third trimester Problem Second trimester (19896058) Supervision of other normal , second trimester (Z34.82) Active confirmed Supervision of other normal , second trimester Problem Primigravida (593341423) Encounter for care in third trimester of first (Z34.03) Active confirmed Encounter for supervision of normal first , third trimester Problem First trimester (32436457) Supervision of other normal , first trimester (Z34.81) Active confirmed Supervision of other normal , first trimester Problem *Decreased movements, 3rd trimester - Childers (Code also - Weeks of gestation Z3A) (O36.8130) Active confirmed Decreased movement, third trimester Problem Pelvic and perineal pain (694907709) Abdominal pain, suprapubic (R10.2) Active confirmed Chronic pelvic pain of female Vital Signs Blood pressure diastolic 70 mm Hg 02/04/2024 Height 67 in 02/04/2024 Blood pressure systolic 122 mm Hg 02/04/2024 Weight 137.4 lbs 02/04/2024 BMI 21.52 kg/m2 02/04/2024 Encounters Encounter Location Date Provider Diagnosis [facility] [address] [facility] [address] [place] [address] 01/19/2024 Herminia Gaona Abnormal uterine bleeding N93.9 [facility] [address] [facility] [address] [place] [id number] 02/22/2024 Shruti Borders [facility] [address] [facility] [address] [place] [address] 02/04/2024 Shruti Wili Abnormal transvaginal ultrasound R93.89 [facility] [address] [facility] [address] [place] [address] 02/04/2024 Shruti Borders Abnormal uterine bleeding N93.9 Assessments Encounter Date Diagnosis (ICD Code) Assessment Notes Treatment Notes Treatment Clinical Notes Section Notes 02/04/2024 Abnormal transvaginal ultrasound (ICD-10 - R93.89) TVUS at outside facility on 01/03 read anterior myometrium hyperechoic areas of undetermined significance . Repeat TVUS today normal. Counseled patient that the abnormality may have been signs of adenomyosis flaring up, which is common in patient with hx of endometriosis. Counseled on treatments for pelvic pain and endometriosis/ad enomyosis, including OCPs. Pt would like to start on OCPs once she is done . 02/04/2024 Abnormal uterine bleeding (ICD-10 - N93.9) 01/19/2024 Abnormal uterine bleeding (ICD-10 - N93.9) Plan Of Treatment No Information Insurance Providers Payer Name Payer Address Payer Phone Subscriber Number Group Number Insured Name Patient Relationship to Insured Coverage Start Date Coverage End Date [place] [employer] [address] [place] [address] [id number] [employer] Scott Sharma Child [facility] [address] [place] [address] [id number] Elena Sanchez Self - patient is the insured Medical (General) History Medical History History ICD Code BV Endometriosis UTIs PCOS H/O MAB Surgical History Surgery Date(Month/Year) Adnoidectomy Ear Tubes Endometriosis Surgery Tonsillectomy [place] Teeth Extraction Hospitalization History Reason Date(Month/Year) L&D - 2019 Tonsillectomy Adnoidectomy
--- NOTE | 2025-01-02 15:55 | US_ITS ---
PROCEDURE INFORMATION: Exam: US Duplex Artery or Vein of the Abdominal and/or Reproductive Organs, Limited Ovaries Exam date and time: 01/02/2025 4:11 PM Age: 24 years old Clinical indication: Pelvic pain; Prior surgery; Surgery date: 6+ months; Surgery type: Hysterectomy; Additional info: R/O torsion TECHNIQUE: Imaging protocol: Real-time duplex ultrasound scan of the arterial or venous flow with hedrick scale, color Doppler flow and spectral waveform analysis with image documentation. Limited duplex exam focused on the ovaries. Duplex exam was performed to evaluate for torsion and other vascular conditions. COMPARISON: US TRANSVAGINAL 08/16/2024 3:59 PM FINDINGS: Right ovary/adnexa: Peak systolic velocity right ovary 8 cm/sec Left ovary/adnexa: Peak systolic velocity in the left ovary 4 cm/sec IMPRESSION: Normal duplex of the ovaries. No evidence of ovarian torsion. PROCEDURE INFORMATION: Exam: US Pelvis, Transvaginal, Non-Obstetric Exam date and time: 01/02/2025 4:11 PM Age: 24 years old Clinical indication: Pelvic pain; Prior surgery; Surgery date: 6+ months; Surgery type: Hysterectomy; Additional info: R/O torsion TECHNIQUE: Imaging protocol: Real-time transvaginal pelvic (non-obstetric) ultrasound with image documentation. Transvaginal imaging was used for better evaluation of the endometrium, adnexa, and/or cervix. COMPARISON: US TRANSVAGINAL 08/16/2024 3:59 PM FINDINGS: Uterus: Status post hysterectomy Right ovary/adnexa: Right ovary measures 2.48 x 3.17 x 1.76 cm. Left ovary/adnexa: Left ovary 3.75 x 2.32 by 2.1 cm. Urinary bladder: Urinary bladder is limited. Intraperitoneal space: Free fluid by the vaginal cuff measures 2.18 x 1.56 x 1.1 cm. IMPRESSION: Free fluid by the vaginal cuff No evidence of torsion
--- NOTE | 2025-01-02 15:57 | CT_ITS ---
PROCEDURE INFORMATION: Exam: CT Abdomen And Pelvis With Contrast Exam date and time: 01/02/2025 5:16 PM Age: 24 years old Clinical indication: Abdominal pain; Additional info: Pelvic pain TECHNIQUE: Imaging protocol: Computed tomography of the abdomen and pelvis with contrast. Radiation optimization: All CT scans at this facility use at least one of these dose optimization techniques: automated exposure control; mA and/or kV adjustment per patient size (includes targeted exams where dose is matched to clinical indication); or iterative reconstruction. Contrast material: ISOVUE; Contrast volume: 75 ml; Contrast route: IV; COMPARISON: CT ABDOMEN PELVIS W CON 09/09/2020 11:59 AM FINDINGS: Liver: Normal. No mass. Gallbladder and biliary ducts: Gallstones in the gallbladder.. Pancreas: Normal. No ductal dilation. Spleen: Normal. No splenomegaly. Adrenal glands: Normal. No mass. Kidneys and ureters: Normal. No hydronephrosis. Stomach and bowel: Unremarkable. No obstruction. No mucosal thickening. Appendix: Normal appendix. Intraperitoneal space: Unremarkable. No free air. No significant fluid collection. Vasculature: Unremarkable. No abdominal aortic aneurysm. Lymph nodes: Unremarkable. No enlarged lymph nodes. Urinary bladder: Unremarkable as visualized. Reproductive: Unremarkable as visualized. Bones/joints: Unremarkable. No acute fracture. Soft tissues: Unremarkable. IMPRESSION: 1. Gallstones in the gallbladder.. 2. Normal appendix.
[2025-01-02 16:04] VITALS: BP 128/87; PULSE 85; RESP 16; TEMP 36.9; O2SAT 100; BMI 22.6
[2025-01-02 16:06] LABS: Microscopic, Urine URINE MICROSCOPIC (MICROSCOPIC)
--- NOTE | 2025-01-02 16:08 | ED_ITS ---
<Statement entered by Eber Galeana MD - 01/03/25 13:56> I was consulted by the JENNIFER, and we discussed the complexity of the problems being addressed. I approve the treatment and management plan for this patient's care in the emergency department, thus performing a substantive portion of the medical decision making. Eber Galeana MD Discharge Plan Disposition Patient Disposition: Home, Self-Care Prescriptions Prescriptions: No Action No Known Home Medications Referrals Follow up/Referrals: Alex Mathew MD [Staff Physician, General Surgery] - See instructions Mellisa Costello PA [Primary Care Provider, Medical] - See instructions Kori Domingo DO [Staff Physician, FLOOR COVERING CONTRACTOR] - See instructions Activity Restrictions/Add. Instructions Additional Instructions/Restrictions: Please follow-up with CLINICAL SERVICES CONSULTANT for worsening pain. Also follow-up with Dr. Mathew for the gallstones. If any worsening pain or problems please return to the ED. Clinical Impressions Clinical Impression: History of endometriosis, Abdominal cramping, Asymptomatic gallstones Instructions Patient Instructions: Gallstones, DI for Acute Abdominal Pain, DI for Pelvic Pain Print Language Print Language: Belarusian Discharge ED Provider: Eber Galeana General Adult HPI General Chief complaint: PAIN Stated complaint: Possible Ovarian Cyst Rupture Time Seen by Provider: 01/02/25 15:21 Mode of Arrival: Ambulatory Description of Symptoms (Recalled from ER Triage Doc. by RN): C/O LEFT SIDED PELVIC PRESSURE/PAIN THAT STARTED THIS AM. HX OF OVARIAN CYSTS. DENIES FEVER. History of Present Illness HPI narrative: 24-year-old female presents to the ED today for complaint of left lower pelvic pressure and pain that started this morning. She says she has a history of ovarian cysts. She also has urinary urgency. She has had 2 laparoscopic procedures for endometriosis in the past. She has had a partial hysterectomy where Dr. Michael removed uterus and tubes. Patient denies fevers or chills. She has had nausea but no vomiting. No other symptoms. Related Data Home Medications ?Medication ?Instructions ?Recorded ?Confirmed No Known Home Medications 01/02/2512/15 Allergies Allergy/AdvReac Type Severity Reaction Status Date / Time Sulfa (Sulfonamide Allergy Unknown Rash Verified 01/02/25 15:56 Antibiotics) (SULFA (SULFONAMIDE ANTIBIOTICS)) dextromethorphan Allergy Unknown Verified 01/02/25 15:56 allergy reaction [facility] Disclaimer: The information contained in this section may have been updated after the patient was seen, as this information can be updated by other users. Medical History (Updated 01/02/25 @ 18:08 by Nell Conn (ED), HOMOEOPATH) Chronic constipation Abdominal cramping Abnormal vaginal bleeding Vaginal discharge Transaminitis History of chest pain Morning headache Nonintractable chronic migraine Tendinitis, de Quervain's Menorrhagia Pre-op evaluation Chronic pelvic pain in female Acute pelvic pain, female Chest pain History of tachycardia Hypotension Palpitations Chest pressure Dyspnea Surgical History Status post vaginal delivery S/P laparoscopic hysterectomy Hx of wisdom tooth extraction History of tonsillectomy and adenoidectomy Hx of laparoscopy History of placement of ear tubes Family History Other Cancer Diabetes Heart attack Hypertension Social History Smoking Status: Never smoker second hand exposure: No alcohol intake: never substance use type: denies use current occupational status: employed Travel in the last 8 weeks?: None household members: significant other housing: house marital status: single number of children: 2 caffeine: Yes Other Medical History Have you received the Flu Vaccine for this season: No Have you received the Pneumonia Vaccine: No ROS Obtained: Yes Systems reviewed as appropriate & no additional complaints except as documented Constitutional Constitutional: Reports as per HPI Physical Exam General General appearance: alert and in no apparent distress Head Head exam: atraumatic Eye Eye exam: Present PERRL and EOMI ENT ENT exam: Present mucous membranes moist Respiratory Respiratory exam: Present normal lung sounds bilaterally Cardiovascular Cardiovascular exam: Present regular rate, +S1 and +S2 Abdominal Exam Abdominal exam: Present soft Neurological Exam Neurological exam: Present alert and oriented X3 Skin Skin exam: Present warm and dry Medical Decision Making Medical Records Screening: Per USPSTF and CDC recommendations, given the prevalence of disease in our region, it is our hospital?s policy to screen for HIV and viral Hepatitis for all patients aged 18 and over and those with ongoing risk factors. Erasmo Inquiry Pt receiving controlled substance: No Erasmo was queried for this patient: No Vital Signs: 01/02/25 16:04 01/02/25 18:24 Temperature 98.5 F 98 F Temperature Source Oral Oral Pulse Rate 74 Pulse Rate [Left Brachial] 85 Respiratory Rate 16 16 Blood Pressure 119/87 Blood Pressure [Left Arm] 128/87 Blood Pressure Mean [Left Arm] 100 Blood Pressure Source Automatic Cuff Blood Pressure Source [Left Arm] Automatic Cuff Blood Pressure Position Sitting 02 Sat by Pulse Oximetry 100 Oxygen Delivery Method Room Air Room Air Lab Data Lab Results 01/02/25 15:48: Urine Color Yellow, Urine Appearance Sl cloudy, Urine pH 7.5, Ur Specific [place] 1.020, Urine Protein Negative, Urine Glucose (UA) Negative, Urine Ketones Negative, Urine Blood Negative, Urine Nitrate Negative, Urine Bilirubin Negative, Urine Urobilinogen 4.0, Ur Leukocyte Esterase Negative, Urine RBC None, Urine WBC None, Ur Squamous Epith Cells 3-5, Amorphous Sediment 3+, Urine Bacteria 1+ 01/02/25 16:08: WBC 5.5, RBC 4.33, Hgb 13.3, Hct 38.9, MCV 89.8, MCH 30.7, MCHC 34.2, RDW 12.9, Plt Count 148, MPV 10.7 H, Neut % (Auto) 56.2, Lymph % (Auto) 34.1, Lyon % (Auto) 8.0, Eos % (Auto) 1.3, Baso % (Auto) 0.4, Neut # (Auto) 3.1, Lymph # (Auto) 1.9, Lyon # (Auto) 0.4, Eos # (Auto) 0.1, Baso # (Auto) 0.0, Sodium 139, Potassium 3.9, Chloride 105, Carbon Dioxide 26, Anion Gap 11.9, BUN 13, Creatinine 0.60, Estimated Creat Clear 142, Estimated GFR 121, Est GFR ( Amer) 146, Glucose 98, Calcium 9.4, Magnesium 1.6, Total Bilirubin 0.9, AST 28, ALT 18, Alkaline Phosphatase 94, Total Protein 7.4, Albumin 4.7, Globulin 2.7, Albumin/Globulin Ratio 1.7, Lipase 67, HCV Ab BRADLY w/Rflx PCR Qn Negative, HIV Ag/Ab Combo Qual Negative 01/02/25 16:08 01/02/25 16:08 Orders (Tests/Meds): ED MEDICATIONS Discontinued Medications Generic Name Dose Route Start Last Admin Trade Name Tyler PRN Reason Stop Dose Admin Acetaminophen 1,000 mg 01/02/25 15:57 01/02/25 16:15 Acetaminophen 1,000mg/100ml Vial IV 01/02/25 15:58 1,000 mg ONCE ONE Administration Sodium Chloride 1,000 mls @ 999 mls/hr 01/02/25 15:57 01/02/25 17:15 Sod Chlor 0.9% 1000ml Bag IV 01/02/25 16:57 Infused .Q1H1M ONE Infusion Iopamidol 75 ml 01/02/25 17:20 01/02/25 17:21 Iopamidol-370 (76%);100ml Bottle IV 01/02/25 17:21 75 ml ONCE ONE Administration Ketorolac Tromethamine 30 mg 01/02/25 15:57 01/02/25 16:15 Ketorolac 30mg/Ml Vial IV 01/02/25 15:58 30 mg ONCE ONE Administration Sodium Chloride 10 ml 01/02/25 17:20 01/02/25 17:20 Sodium Chloride 0.9% 10ml Syr (Rad Only) IV 01/02/25 17:21 10 ml ONCE ONE Administration ORDERS Category Date Time Status CT abdomen pelvis w con Stat Cat Scan 01/02/25 15:57 Completed US transvaginal Stat Exams 01/02/25 15:55 Completed CBC [Complete Blood Count Auto Diff] Stat Lab 01/02/25 16:08 Completed Comprehensive Metabolic Panel Stat Lab 01/02/25 16:08 Completed HIV Combo Routine Lab 01/02/25 16:08 Completed Hepatitis C Ab Qual. W/ RFX Routine Lab 01/02/25 16:08 Completed Lipase Stat Lab 01/02/25 16:08 Completed Magnesium Stat Lab 01/02/25 16:08 Completed Urinalysis and Microscopic Stat Lab 01/02/25 15:48 Completed Medical Decision Narrative: patient is a 24-year-old female presenting to the emergency department for evaluation of left arm pain after slipping on a walnut and falling. Patient is hemodynamically stable and nontoxic-appearing upon arrival, afebrile. Differential diagnosis includes fracture versus sprain or strain of left arm. Workup will be conducted with specific imaging. Initial inventions include analgesics. Initial workup reviewed by me hematologic labs are remarkable for nothing acute.. CT showed no appendicitis. Ultrasound showed nothing acute. CT also showed gallstones. Patient and I discussed these findings. Please see formal readings from the radiology reports. Patient is safe for discharge home. Will give her follow-up for CLINICAL SERVICES CONSULTANT and surgical follow-up. Critical Care Critical Care Time Critical Care Time: No
[2025-01-02] MEDS: 0.9 % SODIUM CHLORIDE 1000ML 1,000 ML 999 ML IV (16:13)
--- NOTE | 2025-01-02 16:14 | PC.NURSE ---
US notified of need for TVUS
[2025-01-02 16:15] LABS: Hematocrit 38.9 % (37.0-47.0); Hemoglobin 13.3 g/dL (12.2-16.2); Immature Granulocytes % 0 %; Mean Corpuscular HGB Conc 34.2 g/dL (31.8-35.4); Mean Corpuscular Hemoglobin 30.7 pg (27.0-31.2); Mean Corpuscular Volume 89.8 fl (81-99); Nucleated Red Blood Cells % 0 %; Platelet Count 148 K/mm3 (142-424); Red Blood Count 4.33 M/mm3 (4.20-5.40); Red Cell Distribution Width-SD 42.0 fL; White Blood Count 5.5 K/mm3 (4.8-10.8)
[2025-01-02] MEDS: ACETAMINOPHEN 1,000MG/100ML VIAL 1000 MG IV (16:15)
[2025-01-02] MEDS: KETOROLAC 30MG/ML VIAL 30 MG IV (16:15)
[2025-01-02 16:25] LABS: Bilirubin,Urine Negative (Negative); Color,Urine YELLOW (Yellow); Glucose,Urine (UA) Negative (Negative); Ketones,Urine Negative (Negative); Leukocyte Esterase,Urine Negative (Negative); PH,Urine 7.5 (5.0-8.5); Protein,Urine Negative (Negative); Specific Gravity, Urine 1.020 (1.005-1.030); Urobilinogen,Urine 4.0 EU/dl (0.2)
[2025-01-02 16:42] LABS: Amorphous Sediment,Urine 3+ /lpf; Bacteria,Urine 1+ /lpf
[2025-01-02 16:51] LABS: Albumin Level 4.7 g/dl (3.5-5.0); Chloride 105 mmol/L (98-107); Sodium 139 mmol/L (136-145)
[2025-01-02 16:52] LABS: Potassium 3.9 mmoL/L (3.5-5.1)
[2025-01-02 16:54] LABS: Alanine Aminotransferase 18 U/L (12-78); Albumin/Globulin Ratio 1.7 (1.1-1.8); Alkaline Phosphatase 94 U/L (38-126); Anion Gap 11.9 mEq/L (5-15); Aspartate Amino Transferase 28 U/L (14-36); Bilirubin,Total 0.9 mg/dl (0.2-1.3); Blood Urea Nitrogen 13 mg/dl (7-17); Carbon Dioxide 26 mmol/L (22.0-30.0); Creatinine Clearance Estimated 142 mL/min (50-200); Creatinine,Serum 0.60 mg/dl (0.52-1.04); Estimated Glomerular Filt Rate 121 ml/min (>60); GFR (African American) 146 ML/MIN (>60); Globulin 2.7 g/dL (1.3-3.2); Total Protein,Serum 7.4 g/dl (6.3-8.2)
[2025-01-02 16:55] LABS: Calcium 9.4 mg/dl (8.4-10.2); Glucose 98 mg/dl (74-100); Lipase 67 U/L (23-300); Magnesium 1.6 mg/dl (1.6-2.3)
[2025-01-02] MEDS: SODIUM CHLORIDE 0.9% 10ML SYR (RAD ONLY) 10 ML IV (17:20)
[2025-01-02] MEDS: IOPAMIDOL-370 (76%);100ML BOTTLE 75 ML IV (17:21)
[2025-01-02 18:04] LABS: Hepatitis C Ab Qual. W/ RFX NEGATIVE (Negative)
[2025-01-02 18:24] VITALS: BP 119/87; PULSE 74; RESP 16; TEMP 36.6; O2SAT 98
== END 2025-01-02 18:25 | disposition home or self-care (01) ==
PROVIDERS: Nurse Practitioner; Emergency Provider Student in an Organized Health Care Education/Training Program; PCP Physician Assistant
DX: R10.2 Pelvic and perineal pain (principal); R39.15 Urgency of urination; K80.20 Calculus of gallbladder without cholecystitis without obstruction; Z87.42 Personal history of other diseases of the female genital tract
CPT/HCPCS: 74177; 76830; 80053; 81001; 83690; 83735; 85025; 86803; 87389; 96361; 96374; 96375; 99283; 99285; J0131; J1885; J7030; Q9967

== ENCOUNTER 2025-01-04 13:56 | Emergency (ER) | payer OTHER, SELFPAY ==
--- OUTSIDE RECORDS SUMMARY | 2024-02-04 04:30 | XMS_ITS ---
Author Organization [facility] Address [address] [place] [address] Care Team Providers Care Docketing Specialist Name Role Phone WiliShruti Unavailable [phone] Results Component Value Reference Range Notes *US Pelvis Complete Transabd ominal/Vaginal (Non-OB) Reviewed date:02/04/2024 09:19:13 AM Interpretation: Performing Lab: Notes/Report: [facility] Transvaginal Pelvic Study Report Name: ELENA SANCHEZ Accession/Encounter No:[id number] : 2000 Age: 23 Gender: F Study Date: Feb 04, 2024 Study Time: 08:33 AM Reading Group: Shruti Rasheed MD Referring Group: Shruti Rasheed MD Ordering Phys: Shruti Rasheed MD Phone Circuit Operator: Lalitha Gardner RDMS Equipment: Affiniti 30 Study [...] 1 of 1 [facility] - , [facility] REASON FOR VISIT appt confirmed-cv....pt wants second opinion; she was told by current FINISH INSPECTOR office that she had abnormal uterus lining Social History Sex Assigned At : Social History Observation Description Sex Assigned At Female Encounters Encounter Location Date Provider Diagnosis [facility] [address] [place] [address] 02/04/2024 Shruti Rasheed Abnormal uterine bleeding N93.9 Assessments Encounter Date Diagnosis (ICD Code) Assessment Notes Treatment Notes Treatment Clinical Notes Section Notes 02/04/2024 Abnormal uterine bleeding (ICD-10 - N93.9) Plan Of Treatment No Information Progress Notes * Elena SANCHEZ CDOB:2000 (24 yo F)Acc No.[id number]:02/04/2024 Patient: Elena Tamez Provider: Terrell Rasheed MD :2000 A ge:23 Y S ex:Female Date:02/04/2024 Address:[address] [place], [place] [id number] Subjective: * Chief Complaints: * a ppt confirmed-cv....pt wants second opinion; she was told by current FINISH INSPECTOR office that she had abnormal uterus lining Assessment: * Assessment: 1. A bnormal uterine bleeding - N93.9 Plan: * Treatment: Billing Information: * Procedure Codes: * Electronic signature of Kari Rasheed MD on 01/04/2025 at 02:14 PM EDT Sign off status: Pending Visit Status: Stephane DURAN (Check Out) * Provider: Terrell Rasheed MD Date: 02/04/2024 Generated for Alexis chavez/Jeremy/Ericitting on: 01/04/2025 02:14 PM EDT
--- OUTSIDE RECORDS SUMMARY | 2024-03-02 11:00 | XMS_ITS ---
Author Organization [facility] Address [address] [place] [id number] Care Team Providers Care Floor Cleaner Name Role Phone Dustin Perez Primary Care Provider Mellisa Costello Unavailable [phone] Allergies Allergen (clinical drug ingredient) Drug/Non Drug [...] Status Risk Notes Problem Vitamin D deficiency (83321433) Vitamin D deficiency (E55.9) Active confirmed Problem [...] [address] [place] [phone] 03/02/2024 Mellisa Trang Vitamin D deficiency E55.9 [...] :2000 A ge:23 Y S ex:Female Date:03/02/2024 Address:[address] [place] [address] [place] Pcp:Dustin Perez Subjective: * Chief Complaints: * 1 . Discuss getting some blood work , and her ultrasounds. * HPI: H PI: 23 year old female presents with c/o Patient is here today for?Pt would like to discuss her ultrasounds. She went to her OBGYN in [place] and they did an ultrasound and she [...] History: E ar Tubes, multiple times , [place] Teeth Extractions 04/2014, tonsillectomy , Adenoidectomy , Laparoscopic surgery for Endo. 05/2018, 03/2019. * Hospitalization/Major Diagno stic Procedure: [facility] , Constipation- [facility] 06/06/2016. * Family History: F [...] * Images: Billing Information: * Visit Code: 19265 Office Visit, Est Pt., Level 3. * Procedure Codes: 52141 PULSE OX. * Electronic signature of MARIANNA Jain on 01/04/2025 at 02:15 PM EDT Sign off status: Pending * Provider: MARIANNA Schwartz Date: 1 Generated for Alexis chavez/Jeremy/eTransmitting on: 0 01/04/2025 02:15 PM EDT History and Physical Notes * HPI (History of Present Illness) Category Sub-Category Detail Notes Category Not es HPI Patient is here today for Pt wou ld like to discuss her ultrasounds. She went to her OBGYN in [place] and they did an ultrasound and she [...]
--- OUTSIDE RECORDS SUMMARY | 2024-07-13 06:30 | XMS_ITS ---
Author Organization [facility] Address [address] [place] [phone] Care Team Providers Care Greenhouse Specialist Name Role Phone Dustin Perez Primary Care Provider [phone] Mellisa Costello Unavailable [phone] Allergies Allergen (clinical drug ingredient) Drug/Non Drug [...] a day; Duration: 30 day(s) 12/30/2023 Active Dtdwlvyty-Bthqxdfn-KG 30-2-10 MG/5ML 5-10 ml Orally 4 times [...] 07/13/2024 Encounters Encounter Location Date Provider Diagnosis [facility] [address] [facility] [address] [place], [place] [phone] 07/13/2024 Mellisa Trang Influenza J11.1 Assessments Encounter [...] Name Sig Start Date Stop Date Notes Bdjjjymcb-Kcoucuhd-BY 30-2-1 0 MG/5ML 5-10 ml Orally 4 [...] :2000 A ge:23 Y S ex:Female Date:07/13/2024 Address:[address] [place] [address] [place], [id number] Pcp:Dustin Perez Subjective: * Chief Complaints: * [...] History: E ar Tubes, multiple times , [place] Teeth Extractions 04/2014, tonsillectomy , Adenoidectomy , Laparoscopic surgery for Endo. 05/2018, 03/2019, partial hysterectomy [facility] 05/2024. * Hospitalization/Major Diagno stic Procedure: [facility] , Constipation- [facility] ER 06/06/2016. * Family History: [...] auscultation bilaterally. Assessment: * Assessment: 1. [facility] J11.1 (Primary) Plan: * Treatment: [...] * Procedure Codes: 9 4760 [place], [address] Flu Test- Nasal Swab, Modifiers: QW , 00475 COVID TEST IN HOUSE, Modifiers: QW , 38720 CAPILLARY BLOOD DRAW, 17659 CBC WITH AUTO DIFF * Follow Up: p rn * Images: Billing Information: * Visit Code: 03497 Office Visit, Est Pt., Level 3. * Procedure Codes: [address] [place]. [address] Flu Test- Nasal Swab. Modifiers: QW 32300 COVID TEST IN HOUSE. Modifiers: QW 65147 CAPILLARY BLOOD DRAW. 62597 CBC WITH AUTO DIFF. * Electronic signature of MARIANNA Jain on 01/04/2025 at 02:14 PM EDT Sign off status: Pending * Provider: MARIANNA Schwartz Date: 0 07/13/2024 Generated for Alexis chavez/Jeremy/eTransmitting on: 0 01/04/2025 02:14 PM EDT History and Physical Notes * [...]
--- OUTSIDE RECORDS SUMMARY | 2024-11-23 06:45 | XMS_ITS ---
Author Organization Mike Address 1210 [facility] [address] [id number] Care Team Providers Care Immigration Attorney Name Role Phone Dustin Perez Primary Care Provider [phone] Mellisa Costello [phone] Allergies Allergen (clinical drug ingredient) Drug/Non Drug Allergy documented on EMR Reaction Allergy Type Onset Date Status dextromethorphan / promethazine Promethazine-DM tongue swelling Drug Allergy Active Substance with sulfonamide structure and antibacterial mechanism of action (substance) Sulfa Antibiotics Unknown Drug Allergy Active REASON FOR VISIT AWV Encounters Encounter Location Date Provider Diagnosis [facility] [address] [id number] 11/23/2024 Mellisa Costello Plan Of Treatment No Information Progress Notes * DOUG SANCHEZB:2000 ( 24 yo F)Acc No.[id number]:11/23/2024 Annual Wellness Visit Patient: ANNE-MARIE COFFMAN Provider: MARIANNA Schwartz :2000 A ge:24 Y S ex:Female Date:11/23/2024 Address:[address] [place] [address] [facility] Pcp:Dustin Perez Subjective: * Chief Complaints: * 1 . AWV. * ROS: D ERMATOLOGY: no R mindy. n o H gerald. G ASTROENTEROLOGY: no N ausea. n o V omiting. n o D iarrhea.? U ROLOGY: no D ifficulty urinating. n o B lood in urine. * Medical History: A llergies, Endometriosis, PCOS. * Surgical History: E ar Tubes, multiple times , [place] Teeth Extractions 04/2014, tonsillectomy , Adenoidectomy , Laparoscopic surgery for Endo. 05/2018, 03/2019, partial hysterectomy [facility] 05/2024. * Hospitalization/Major Diagno stic Procedure: M [facility] , Constipation- [facility] ER 06/06/2016. * Family History: F [...] Schwartz Date: 0 11/23/2024 Generated for Alexis chavez/Jeremy/Ericitting on: 01/04/2025 02:15 PM EDT
[2025-01-04 14:13] VITALS: BP 133/92; PULSE 105; RESP 15; TEMP 36.9; O2SAT 100; BMI 22.6
--- OUTSIDE RECORDS SUMMARY | 2025-01-04 14:15 | XMS_ITS | Clinical Summary ---
Author Organization [facility] Address [address] [place] [address] Care Team Providers Care Trader Name Role Phone Mellisa Costello Primary Care Provider [phone] Allergies Active Allergy Reactions Criticality Noted Date [...] Active vitamin D (ERGOCALCIFEROL ) 1.25 MG (42974 UT) capsule capsule Take 1 capsule by [...] will need to be followed by a medical technicians or pediatric urologist after delivery if the [...] of Binge Drinking Not on file 07/2019 [place] Depression Scale Answer Date Recorded [place] Depression Scale Total 3 06/27/2021 The thought [...] ve Non-Reacti ve 12/31/2020 7:34 PM EDT [facility] Blood Venipuncture / Unknown 12/31/2020 12:56 PM EDT 12/31/2020 12:57 PM EDT Narrative [facility] - 12/31/2020 7:34 PM EDT Results may be falsely decreased if patient taking Biotin. us Shruti Rasheed MD LAB BLOOD ORDERABLES Final Re sult [facility]
[address] [place] [address], [place] [phone] from Last 3 Months or Most Recently Relevant to Health Maintenance Insurance [facility] Member Subscriber Plan / Payer (Ef fective 2013-Present) Name:Elena Mascorro Relation to Subscriber:Child Name:ELVIA VARELA Date of :1972 (Home) Address: [address] [facility] [address] [place] [address] Payer ID:[id number] (NAIC) Type:Not on file Address: [address] Advance Directives * CPR (Attempt to [...] pulse or is breathing): Full Care Teams Trader Relationship Specialty Start Date End Date Mellisa Costello PA [address] [place] [address] [facility] [address] [facility] [place] [address] PCP - General Physician Sonoscope Operator 02/24/23
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
[2025-01-04 14:17] LABS: Microscopic, Urine URINE MICROSCOPIC (MICROSCOPIC)
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
[2025-01-04 14:21] LABS: Bilirubin,Urine Negative (Negative); Color,Urine YELLOW (Yellow); Glucose,Urine (UA) Negative (Negative); Ketones,Urine Negative (Negative); Leukocyte Esterase,Urine Negative (Negative); PH,Urine 8.0 (5.0-8.5); Protein,Urine Negative (Negative); Specific Gravity, Urine 1.020 (1.005-1.030); Urobilinogen,Urine 2.0 EU/dl (0.2)
[2025-01-04] MEDS: LACTATED RINGERS 1000ML 1,000 ML 999 ML IV (14:25)
[2025-01-04] MEDS: ONDANSETRON 4MG/2ML VIAL 4 MG IV (14:26)
[2025-01-04] MEDS: MORPHINE 4MG/ML SYRINGE 4 MG IV (14:26)
[2025-01-04 14:31] LABS: Alanine Aminotransferase 19 U/L (12-78); Albumin Level 4.6 g/dl (3.5-5.0); Albumin/Globulin Ratio 1.7 (1.1-1.8); Alkaline Phosphatase 85 U/L (38-126); Anion Gap 11.6 mEq/L (5-15); Aspartate Amino Transferase 30 U/L (14-36); Bilirubin,Total 0.8 mg/dl (0.2-1.3); Blood Urea Nitrogen 13 mg/dl (7-17); Calcium 8.6 mg/dl (8.4-10.2); Carbon Dioxide 25 mmol/L (22.0-30.0); Chloride 105 mmol/L (98-107); Creatinine Clearance Estimated 142 mL/min (50-200); Creatinine,Serum 0.60 mg/dl (0.52-1.04); Estimated Glomerular Filt Rate 121 ml/min (>60); GFR (African American) 146 ML/MIN (>60); Globulin 2.7 g/dL (1.3-3.2); Glucose 93 mg/dl (74-100); Lipase 51 U/L (23-300); Potassium 3.6 mmoL/L (3.5-5.1); Sodium 138 mmol/L (136-145); Total Protein,Serum 7.3 g/dl (6.3-8.2)
[2025-01-04 14:33] LABS: Bacteria,Urine Trace /lpf; Mucus,Urine 4+ /lpf
[2025-01-04 14:37] LABS: Hematocrit 39.0 % (37.0-47.0); Hemoglobin 13.5 g/dL (12.2-16.2); Immature Granulocytes % 0 %; Mean Corpuscular HGB Conc 34.6 g/dL (31.8-35.4); Mean Corpuscular Hemoglobin 30.9 pg (27.0-31.2); Mean Corpuscular Volume 89.2 fl (81-99); Nucleated Red Blood Cells % 0 %; Platelet Count 118 K/mm3 (142-424); Red Blood Count 4.37 M/mm3 (4.20-5.40); Red Cell Distribution Width-SD 41.5 fL; White Blood Count 5.1 K/mm3 (4.8-10.8)
--- NOTE | 2025-01-04 14:49 | HMH.EDGENADL ---
Discharge Plan Disposition Patient Disposition: Home, Self-Care Prescriptions Prescriptions: No Action No Known Home Medications Referrals Follow up/Referrals: Mellisa Costello PA [Primary Care Provider, Medical] - See instructions Activity Restrictions/Add. Instructions Additional Instructions/Restrictions: Dr. Mathew's clinic will follow-up on getting you to the operating room soon as possible and are aware of the situation. Please keep your appointment on Wednesday and avoid fatty foods in the meantime. No emergent medical condition identified today. Clinical Impressions Clinical Impression: Symptomatic cholelithiasis Instructions Patient Instructions: DI for Acute Abdominal Pain Print Language Print Language: Gambian Discharge ED Provider: Georgia Kiran General Adult HPI General Chief complaint: Abdominal Pain Stated complaint: rt side abdomen pain,back pain Time Seen by Provider: 01/04/25 14:00 Mode of Arrival: Ambulatory Source of Information: Patient Description of Symptoms (Recalled from ER Triage Doc. by RN): PT REPORTS R QUADRANT PAIN. PT WAS SEEN ON WEDNESDAY AND WAS TOLD SHE HAS GALLSTONES. HAS A SURGICAL CONSULT NEXT WEEK. PAIN CURRENTLY 08/24 HAS BEEN RUNNING A LOW GRADE TEMP @HOME History of Present Illness HPI narrative: The patient is a 24-year-old presented today with right upper quadrant abdominal pain. She states she has had chronic pelvic discomfort and was actually recently in the emergency department at the request of her ASSISTANT PROFESSOR NURSE EDUCATION doctor to get an ultrasound she ultimately had an ultrasound and the CT showing no emergent pathology presumptively she had a ruptured ovarian cyst at that time but was also found to have cholelithiasis. There was no evidence radiographically of cholecystitis and she had no symptoms at that point. However on retrospect the patient states that she has had symptoms in the right upper quadrant for 6 months particular with fatty foods and greasy foods. She just thought I was out of shape but and rest affects believe that this is symptoms from her gallstones. She states earlier today she had a temperature of 100.3 and the symptoms significantly worsened today with right upper quadrant discomfort being a 4 out of 10 at times being worsened to 7 out of 10. Related Data Home Medications ?Medication ?Instructions ?Recorded ?Confirmed No Known Home Medications 01/02/25 01/02/25 Allergies Allergy/AdvReac Type Severity Reaction Status Date / Time Sulfa (Sulfonamide Allergy Unknown Rash Verified 01/02/25 15:56 Antibiotics) (SULFA (SULFONAMIDE ANTIBIOTICS)) dextromethorphan Allergy Unknown Verified 01/02/25 15:56 allergy reaction [facility] Disclaimer: The information contained in this section may have been updated after the patient was seen, as this information can be updated by other users. Medical History (Updated 01/04/25 @ 14:53 by Georgia Kiran MD) Chronic constipation Abdominal cramping Abnormal vaginal bleeding Vaginal discharge Transaminitis History of chest pain Morning headache Nonintractable chronic migraine Tendinitis, de Quervain's Menorrhagia Pre-op evaluation Chronic pelvic pain in female Acute pelvic pain, female Chest pain History of tachycardia Hypotension Palpitations Chest pressure Dyspnea Surgical History Status post vaginal delivery S/P laparoscopic hysterectomy Hx of wisdom tooth extraction History of tonsillectomy and adenoidectomy Hx of laparoscopy History of placement of ear tubes Family History Other Cancer Diabetes Heart attack Hypertension Social History Smoking Status: Never smoker second hand exposure: No alcohol intake: never substance use type: denies use current occupational status: employed Travel in the last 8 weeks?: None household members: significant other housing: house marital status: single number of children: 2 caffeine: Yes Have you lived/traveled outside US in past 30 days?: No Contact w/someone who lives/traveled outside US past 30 days?: No Exposure to someone with infectious disease in past 14 days?: No Do you have a fever (greater than 100.4 F or 38 C)?: No Have you tested positive for COVID-19?: No Exposed to someone with COVID-19 in past 14 days?: No Do you have a sore throat?: No Do you have a cough?: No Do you have any weakness?: No Do you have any diarrhea?: No Are you experiencing any unusual bleeding?: No Do you have any muscle aches/pain?: No Do you have any abdominal pain?: No Are you experiencing loss of taste or smell?: No Other Medical History Have you received the Flu Vaccine for this season: No Have you received the Pneumonia Vaccine: No ROS Obtained: Yes All systems reviewed & no additional complaints except as documented Physical Exam General General appearance: alert and in no apparent distress Respiratory Respiratory exam: Present normal lung sounds bilaterally Cardiovascular Cardiovascular exam: Present regular rate and normal rhythm Abdominal Exam Abdominal exam: Present soft and tenderness (Tenderness with deep palpation right upper quadrant but no significant Pond sign rebound or guarding); Absent distention Neurological Exam Neurological exam: Present alert and oriented X3 Medical Decision Making Medical Records Screening: Per USPSTF and CDC recommendations, given the prevalence of disease in our region, it is our hospital?s policy to screen for HIV and viral Hepatitis for all patients aged 18 and over and those with ongoing risk factors. Erasmo Inquiry Pt receiving controlled substance: No Vital Signs: 01/04/25 14:13 Temperature 98.5 F Temperature Source Oral Pulse Rate [Right] 105 H Respiratory Rate 15 Blood Pressure [Right Arm] 133/92 H Blood Pressure Mean [Right Arm] 105 02 Sat by Pulse Oximetry 100 Lab Data Lab results reviewed: Yes I reviewed the patient's lab results. Lab Results 01/04/25 14:00: WBC 5.1, RBC 4.37, Hgb 13.5, Hct 39.0, MCV 89.2, MCH 30.9, MCHC 34.6, RDW 12.7, Plt Count 118 L, MPV 10.7 H, Neut % (Auto) 80.0, Lymph % (Auto) 12.9, [place] % (Auto) 6.1, Eos % (Auto) 0.8, Baso % (Auto) 0.2, Neut # (Auto) 4.1, Lymph # (Auto) 0.7, [place] # (Auto) 0.3, Eos # (Auto) 0.0, Baso # (Auto) 0.0, Sodium 138, Potassium 3.6, Chloride 105, Carbon Dioxide 25, Anion Gap 11.6, BUN 13, Creatinine 0.60, Estimated Creat Clear 142, Estimated GFR 121, Est GFR ( Amer) 146, Glucose 93, Calcium 8.6, Total Bilirubin 0.8, AST 30, ALT 19, Alkaline Phosphatase 85, Total Protein 7.3, Albumin 4.6, Globulin 2.7, Albumin/Globulin Ratio 1.7, Lipase 51 01/04/25 14:02: Urine Color Yellow, Urine Appearance Clear, Urine pH 8.0, Ur Specific [place] 1.020, Urine Protein Negative, Urine Glucose (UA) Negative, Urine Ketones Negative, Urine Blood Negative, Urine Nitrate Negative, Urine Bilirubin Negative, Urine Urobilinogen 2.0, Ur Leukocyte Esterase Negative, Urine RBC None, Urine WBC None, Ur Squamous Epith Cells None, Urine Bacteria Trace, Urine Mucus 4+ 01/04/25 14:00 01/04/25 14:00 Orders (Tests/Meds): ED MEDICATIONS Discontinued Medications Generic Name Dose Route Start Last Admin Trade Name Freq PRN Reason Stop Dose Admin Lactated Ringer's 1,000 mls @ 999 mls/hr 01/04/25 14:15 01/04/25 14:25 Lactated Ringer's 1000 Ml Bag IV 01/04/25 15:15 999 mls/hr .Q1H1M BUTCH Administration Morphine Sulfate 4 mg 01/04/25 14:12 01/04/25 14:26 Morphine 4mg/Ml Syringe IV 01/04/25 14:13 4 mg ONCE ONE Administration Ondansetron HCl 4 mg 01/04/25 14:12 01/04/25 14:26 Ondansetron 4mg/2ml Vial IV 01/04/25 14:13 4 mg ONCE ONE Administration ORDERS Category Date Time Status POCUS Point of Care (ER Only) Stat Exams 01/04/25 14:12 Ordered US RUQ [US abdomen limited] Stat Exams 01/04/25 14:59 Taken CBC w/Auto Diff [Complete Blood Count Auto Diff] Stat Lab 01/04/25 14:00 Completed CMP [Comprehensive Metabolic Panel] Stat Lab 01/04/25 14:00 Completed Lipase Stat Lab 01/04/25 14:00 Completed UA [Urinalysis and Microscopic] Stat Lab 01/04/25 14:02 Completed Medical Decision Narrative: 24-year-old with above history and physical she is afebrile vital signs are stable abdominal exam relatively benign other than with deep palpation has a right upper quadrant abdominal pain. Right upper quadrant ultrasound at the bedside demonstrates cholelithiasis without any radiographic evidence of cholecystitis. Will get labs and administer pain medicine nausea medicine and IV fluids. Patient already has an outpatient appointment scheduled with Dr. Mathew. Of note patient is getting in 1 month and she would like to be healed if she is going to pursue surgery prior to her wedding and honeymoon. I will discuss the case with Dr. Mathew who is on-call to see if he would be willing to expedite her management specifically to do a cholecystectomy as she continues to be symptomatic and seems to have been sober for 6 months. I spoke with Dr. Mathew at 3 PM we will try to get the patient expedited as quickly as possible especially given her upcoming wedding. This is not an emergency at this point and Dr. Mathew does not have room in his schedule at the moment to take her to the operating room we will try to get this done as quickly as possible next week we will get a formal ultrasound at his request and he is talking to his office staff to see if we can find time in the OR schedule. Patient is aware of this and agreeable and happy with this plan. Formal ultrasound was performed results are pending but will not exchange engineer as bedside ultrasound has already been performed and patient is essentially asymptomatic at this point. She will follow-up as previously instructed with Dr. Mathew's clinic on wednesday. Procedures Miscellaneous Procedure Procedure Performed: Limited RUQ ultrasound Indication: Abdominal pain Identified structures: -Gallbladder -Gallbladder wall -Common bile duct -Liver Findings: Negative sonographic Pond's there are multiple gallstones present anterior gallbladder wall is within normal limits no pericholecystic fluid noted common bile duct is visualized and was within normal limits anterior gallbladder wall is 0.3 cm common bile duct is 0.34 cm. Impression: No evidence of acute cholecystitis or choledocholithiasis however there is cholelithiasis Images were saved to permanent archive The study was technically adequate CPT 81718-24 This study was performed by me, and I personally interpreted all images/videos. Based on my clinical judgement, these images were adequate and did not necessitate further imaging. Critical Care Critical Care Time Critical Care Time: No
--- NOTE | 2025-01-04 14:53 | PC.NURSE ---
Dr. Mathew called
--- NOTE | 2025-01-04 14:59 | US_ITS ---
FINAL REPORT CLINICAL HISTORY: RUQ abd pain FINDINGS: Sonographic images of the right upper quadrant were obtained. The pancreas is partially obscured. There is cholelithiasis measuring up to 1.4 cm. No gallbladder wall thickening is seen. Common duct measures 6 mm. There is prominence of the portal vein. Cannot exclude mild portal hypertension. Liver is unremarkable IMPRESSION: Cholelithiasis without evidence of cholecystitis. Prominent portal vein. Cannot exclude mild portal hypertension. Reviewed, Interpreted and Dictated by Heriberto Perez MD Transcribed by Deneen Medina Authenticated and [facility]
--- NOTE | 2025-01-04 15:35 | PC.NURSE ---
provided warm blanket to patient
[2025-01-04 15:53] VITALS: BP 118/75; PULSE 83; RESP 16; TEMP 37.1; O2SAT 98
== END 2025-01-04 15:55 | disposition home or self-care (01) ==
PROVIDERS: Emergency Provider Student in an Organized Health Care Education/Training Program; PCP Physician Assistant
DX: R10.11 Right upper quadrant pain (principal); K80.20 Calculus of gallbladder without cholecystitis without obstruction
CPT/HCPCS: 76705; 80053; 81001; 83690; 85025; 96361; 96374; 96375; 99284; J2270; J2405; J7120

== ENCOUNTER 2025-01-09 13:08 | Outpatient (CLI) | payer OTHER, SELFPAY ==
[2025-01-09 13:16] VITALS: BMI 22.6
--- OUTSIDE RECORDS SUMMARY | 2025-01-09 13:18 | XMS_ITS | Clinical Summary ---
Author Organization [facility] Address [address] [place] [address] Care Team Providers Care Claim Technician Name Role Phone Mellisa Costello Primary Care Provider [phone] Allergies Active Allergy Reactions Criticality Noted Date [...] Active vitamin D (ERGOCALCIFEROL ) 1.25 MG (65762 UT) capsule capsule Take 1 capsule by [...] will need to be followed by a cat sitter or pediatric urologist after delivery if the [...] of Binge Drinking Not on file 07/2019 [place] Depression Scale Answer Date Recorded [place] Depression Scale Total 3 06/27/2021 The thought [...] ve Non-Reacti ve 12/31/2020 7:34 PM EDT [facility] Blood Venipuncture / Unknown 12/31/2020 12:56 PM EDT 12/31/2020 12:57 PM EDT Narrative [facility] - 12/31/2020 7:34 PM EDT Results may be falsely decreased if patient taking Biotin. us Shruti Rasheed MD LAB BLOOD ORDERABLES Final Re sult [facility]
[address] [place] [address], [place] [phone] from Last 3 Months or Most Recently Relevant to Health Maintenance Insurance [facility] Member Subscriber Plan / Payer (Ef fective 2013-Present) Name:Elena Mascorro Relation to Subscriber:Child Name:ELVIA VARELA Date of :1972 (Home) Address: [address] [facility] [address] [place] [address] Payer ID:[id number] (NAIC) Type:Not on file Address: [address] Advance Directives * CPR (Attempt to [...] pulse or is breathing): Full Care Teams Claim Technician Relationship Specialty Start Date End Date Mellisa Costello PA [address] [facility] [address] [facility] [place] [address] PCP - General Physician Sales Project Administrator 02/24/23
== END 2025-01-09 23:59 | disposition home or self-care (01) ==
LOC: PREOP 13:08
PROVIDERS: PCP Physician Assistant; Visit Provider Surgery
DX: R69 Illness, unspecified (principal)

== ENCOUNTER 2025-01-11 10:03 | Day surgery (SDC) | payer OTHER, SELFPAY ==
[2025-01-09 13:53] VITALS: BMI 22.6
[2025-01-11] VITALS (11 sets, daily range): BP systolic 93–136; BP diastolic 56–84; PULSE 70–83; RESP 16–24; TEMP 36.2–38; O2SAT 99–100
[2025-01-11] MEDS: LACTATED RINGERS 1000ML 1,000 ML 25 ML IV ×2 (10:29→13:28)
--- NOTE | 2025-01-11 11:06 | EXP.ANES.CKL ---
[facility] Disclaimer: The information contained in this section may have been updated after the patient was seen, as this information can be updated by other users. Medical History Chronic constipation Abdominal cramping Abnormal vaginal bleeding Vaginal discharge Transaminitis History of chest pain Active follow-up with [facility] cardiology. Morning headache Nonintractable chronic migraine Tendinitis, de Quervain's Menorrhagia Pre-op evaluation Chronic pelvic pain in female Acute pelvic pain, female Chest pain History of tachycardia Hypotension Palpitations Chest pressure Dyspnea Surgical History Status post vaginal delivery S/P laparoscopic hysterectomy SAHIL GOODWIN on 05/25/24 Hx of wisdom tooth extraction History of tonsillectomy and adenoidectomy Hx of laparoscopy History of placement of ear tubes Family History Other Cancer Diabetes Heart attack Hypertension Social History Smoking Status: Never smoker second hand exposure: No alcohol intake: never substance use type: denies use current occupational status: employed Travel in the last 8 weeks?: Inside the [place] household members: significant other housing: house marital status: single number of children: 2 caffeine: Yes Have you lived/traveled outside US in past 30 days?: No Contact w/someone who lives/traveled outside US past 30 days?: No Exposure to someone with infectious disease in past 14 days?: No Do you have a fever (greater than 100.4 F or 38 C)?: No Have you tested positive for COVID-19?: No Exposed to someone with COVID-19 in past 14 days?: No Do you have a sore throat?: No Do you have a cough?: No Do you have any weakness?: No Do you have any diarrhea?: No Are you experiencing any unusual bleeding?: No Do you have any muscle aches/pain?: No Do you have any abdominal pain?: No Are you experiencing loss of taste or smell?: No [facility] Anesthesia Checklist Patient Identification Patient Identification: Arm Band Structural Data Admitted From: Home Planned Operative Procedure/s: Laparoscopic Cholecystectomy Consent for Planned Operative Procedure(s) Verified: Yes Verified Documents: Surgical Consent and History and Physical NPO Status Verified Time NPO: 00:00 Additional verifications Anesthesia Reactions: No Hx Blood Transfusions: No Blood Transfusion Reaction: No Airway Assessment Mallampati Score:: Class II C-Spine Mobility Assessed: Yes TMJ Mobility Assessed: Yes Dentition: Good Dentition Neurological Assessment Level of Consciousness: Awake, Alert and Appropriate Anesthesia Plan Anesthesia Risk discussed: Yes Anesthesia Plan: Verified ASA Class: I Anesthesia Type: General
[2025-01-11] MEDS: LIDOCAINE 1% 20ML MDV 20 ML (12:09)
--- NOTE | 2025-01-11 12:54 | EXP.OP.NOTE ---
Date of procedure: 01/11/25 Pre-op Diagnosis:: Symptomatic gallstones, chronic calculous cholecystitis Post-op Diagnosis:: Same Procedure performed:: Laparoscopic cholecystectomy Surgeon:: Alex Mathew MD E BUSINESS CONSULTANT:: Scott Garcia Anesthesia: ZORAIDA Estimated blood loss (mL): 10 Clinical Note:: Patient presents for cholecystectomy. She is a 24-year-old female referred by the emergency department for gallstones. She was seen in the emergency department on 01/04/2025 with complaints of right upper quadrant pain. Of note, the patient had recently been seen in the emergency department with chronic pelvic discomfort and there was concern for possible ruptured ovarian cyst. Her right upper quadrant symptoms have been present for about 6 months and occur postprandially with fatty type foods. She did have a dedicated gallbladder ultrasound on 01/04/2025 which revealed cholelithiasis with gallstones measuring up to 1.4 cm. Common bile duct 6 mm. There was some prominence of the portal vein. Laboratory evaluation was unremarkable. She describes about 6 months of right upper quadrant pain radiating through to her right back occurring postprandially about 10 to 15 minutes after fatty type foods for about 6 months. Of note, patient has had previous laparoscopies for endometriosis. She did have a laparoscopic hysterectomy with Dr. Domingo in May of this year for benign disease. She still does have her ovaries. Patient is planning to get in late January and is anxious to proceed with surgery. Operative findings:: She had a somewhat thickened gallbladder with multiple small stones. Operative note:: Consent was obtained and patient was taken to the operating room. She was given preoperative intravenous antibiotics. In the operating room she was placed in a supine position. General anesthesia was induced via endotracheal tube. Abdomen was prepped and draped in the standard surgical fashion. She had prominent subumbilical scar from prior surgeries. Limited elliptical incision was made to excise the scar. While performing abdominal wall lift Veress needle was inserted. CO2 pneumoperitoneum was achieved to 15 mmHg. 5 mm optical trocar was inserted at the umbilicus. Intraperitoneal contents were visualized. She was positioned in reverse Trendelenburg and left side down. A couple of 5 mm trocars were inserted in the right upper abdomen. 11 mm trocar was inserted in the epigastrium. Gallbladder was grasped retracted anteriorly and superiorly over the dome of the liver. Infundibulum of the gallbladder is retracted anterior laterally. Blunt dissection was carried out bluntly incising the visceral peritoneum. Dissection was carried out clearly identifying the cystic duct and cystic artery and the critical view of safety. Cystic duct was isolated, multiply clipped, and sharply divided. Cystic artery was carefully coagulated with FRANCY ultrasonic harmonic clinton and divided. Gallbladder was dissected free from the liver in a retrograde fashion using ultrasonic harmonic clinton. Gallbladder was placed within an Endo Catch retrieval device and removed from the peritoneal cavity via the epigastric trocar site. Gallbladder fossa was inspected for hemostasis which was assured. Very limited irrigation and suctioning was performed. Trocars were then removed the CO2 pneumoperitoneum was evacuated. Fascia at the epigastric trocar site was closed with a 0 Vicryl suture. Local anesthetic was infiltrated. Skin incisions were closed with 4-0 Monocryl in a subcuticular fashion. Steri-Strips and dressings were applied. . Condition: stable Disposition: PACU Complications:: None immediately apparent
--- NOTE | 2025-01-11 13:11 | EXP.ANES.I ---
[facility] Anesthesia Record Part I Anesthesia Record I Intake, IV Amount: 900 Hydration: Adequate Estimated blood loss (mL): 10 Urine output (mL): 0 Blood Products used (#): none Blood Pressure: 136/62 SaO2: 100 Pulse Rate: 81 Airway Patency: Patent Respiratory Rate: 24 Temperature: 97.3 F Patient is:: Drowsy and Stable Stable to PACU at:: 13:00 Comments:: Transient anxiety attack. Had similar reaction after previous surgery.
[2025-01-11] MEDS: MEPERIDINE 25MG/ML 1ML SYRINGE 12.5 MG IV (13:28)
[2025-01-11] MEDS: KETOROLAC 30MG/ML VIAL 30 MG IV (13:29)
[2025-01-11] MEDS: ONDANSETRON 4MG/2ML VIAL 4 MG IV (13:29)
[2025-01-11] MEDS: HYDROMORPHONE 2MG/ML SYRINGE 0.5 MG IV ×2 (13:37→13:43)
--- NOTE | 2025-01-11 16:02 | EXP.ANES.II ---
[facility] Anesthesia Record Part II Anesthesia Record Part II Discharge Time: 14:15 Destination: Surgical Day Care (OP Surgery) PACU nurse assessment reviewed?: Yes Patient Condition:: Good Anesthesia Complications:: None Swallowing reflex intact?: Yes Airway Patency: Patent Cyanosis?: No Blood Pressure: 101/56 SaO2: 100 Respiratory Rate: 18 Pulse Rate: 80 Temperature: 97.1 F Mental Status: Alert & Oriented Pain level:: 0 Nausea and/or vomitting:: None Intake, IV Amount: 0 Hydration: Adequate
== END 2025-01-11 14:15 | disposition home or self-care (01) ==
PROVIDERS: PCP Physician Assistant; Visit Provider Surgery
PROC: 0FT44ZZ Resection of Gallbladder, Percutaneous Endoscopic Approach (ICD-10-PCS; CPT 47562; principal; 2025-01-11 11:30)
DX: K80.10 Calculus of gallbladder with chronic cholecystitis without obstruction (principal); G43.709 Chronic migraine without aura, not intractable, without status migrainosus; Z90.710 Acquired absence of both cervix and uterus; Z88.2 Allergy status to sulfonamides; Z88.8 Allergy status to other drugs, medicaments and biological substances; Z79.891 Long term (current) use of opiate analgesic
CPT/HCPCS: 47562; 96374; J0461; J1100; J1171; J1885; J2003; J2175; J2250; J2405; J2704; J2795; J3010; J7120

== ENCOUNTER 2025-04-06 15:14 | Outpatient (CLI) | payer OTHER, SELFPAY ==
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
--- OUTSIDE RECORDS SUMMARY | 2023-12-30 08:15 | XMS_ITS ---
Author Organization Lizzie Address [address] [facility] [address] MARY LOU Christians[place] [id number] Care Team Providers Care Airplane Refueler Name Role Phone Dustin Perez Primary Care Provider [phone] Mellisa Ramos [phone] Allergies Allergen (clinical drug ingredient) Drug/Non Drug Allergy documented on EMR Reaction Allergy Type Onset Date Status dextromethorphan / promethazine Promethazine-DM tongue swelling Drug Allergy Active Substance with sulfonamide structure and antibacterial mechanism of action (substance) Sulfa Antibiotics Unknown Drug Allergy Active REASON FOR VISIT 3 weeks Medications Medication SIG (Take, Route, Fr equency, Duration) Notes Start Date End Date Status Sertraline HCl 50 MG 1 tablet Orally Onc e a day; Duration: 30 day(s) 12/30/2023 Active Nurtec 75 MG 1 tablet on the tong ue and allow to dissolve Orally 09/09/2023 Active Vital Signs Blood pressure systolic 118 mm Hg 12/30/19 24 Blood pressure diastolic 70 mm Hg 024 Heart Rate 90 /min 12/30/2023 Height 67 in 12/30/2023 Weight 140.4 lbs 12/30/2023 BMI 21.99 kg/m2 12/30/2023 Encounters Encounter Location Date Provider Diagnosis [facility] [address] [facility] [address] MARY LOU Christianson [phone] 12/30/2023 Mellisa Costello Anxiety F41.9 Assessments Encounter Date Diagnosis (ICD Code) Assessment Notes Treatment Notes Treatment Clinical Notes Section Notes 12/30/2023 Anxiety (ICD-10 - F41.9) Plan Of Treatment Medication Medication Name Sig Start Date Stop Date Notes Sertraline HCl 50 MG 1 tablet Orally Onc e a day; Duration: 30 day(s) 12/30/2023 Sertraline HCl 25 MG 1 tablet Orally Onc e a day; Duration: 30 day(s) Next Appt Details Follow Up: 1 month via phone to report progress and then 3 months, Reason: Progress Notes * SUE SANCHEZJENSENB:2000 ( 24 yo F)Acc No.[id number]:12/30/2023 Progress Notes Patient: ANNE-MARIE COFFMAN Provider: MARIANNA Schwartz :2000 A ge:23 Y S ex:Female Date:12/30/2023 Address:[address] [place] [address] [facility] Pcp:Dustin Perez Subjective: * Chief Complaints: * 1 . 3 weeks. * HPI: P sychology: 23 year old female presents with c/o Anxiety P t here for 3 week f/u on anxiety, states she is doing well on Sertraline 25 mg but would like to increase the dose. * ROS: D ERMATOLOGY: no R mindy. n o H gerald. G ASTROENTEROLOGY: no N ausea. n o V omiting. U ROLOGY: no D ifficulty urinating. n o B lood in urine. * Medical History: A llergies, Endometriosis, PCOS. * Surgical History: E ar Tubes, multiple times , [place] Teeth Extractions 04/2014, tonsillectomy , Adenoidectomy , Laparoscopic surgery for Endo. 05/2018, 03/2019. * Hospitalization/Major Diagno stic Procedure: [facility] , Constipation- [facility] 06/06/2016. * Family History: F ather: alive 49 [...] tongue and allow to dissolve Orally , Taking Sertraline HCl 25 MG Tablet 1 tablet Orally Once a day , Medication List reviewed and reconciled with the patient * Allergies: S ulfa Antibiotics, Promethazine-DM: tongue swelling. Objective: * Vitals: W t:140.4, Temp:98.0, BP:118/70, HR:90, Nurse:mary, Ht: 67, BMI:21.99. * Examination: P sychology: General Appearance: N AD. G rooming : a dequate.?Eye contact : n ormal. M ood : p leasant. H eart: R SR. L ungs: c lear to auscultation. N eurologic Exam: I ntact, gait normal. Assessment: * Assessment: 1. A nxiety - F41.9 (Primary) Plan: * Treatment: * Follow Up: 1 month via phone to report progress and then 3 months * Images: Billing Information: * Visit Code: 50248 Office Visit, Est Pt., Level 3. * Procedure Codes: * Electronic signature of MARIANNA Jain on 04/06/2025 at 03:15 PM EST Sign off status: Pending * Provider: MARIANNA Schwartz Date: 0 12/30/2023 Generated for Alexis chavez/Jeremy/Mary on: 06/06/2024 03:15 PM EST History and Physical Notes * HPI (History of Present Illness) Category Sub-Category Detail Notes Category Not es Psychology Anxiety Pt here for 3 we ek f/u on anxiety, states she is doing well on Sertraline 25 mg but would like to increase the dose Examination Category Sub-Category Detail Notes Category Not es Psychology Heart: RSR Lungs: clear to auscultatio n General Appearance: NAD Neurologic Exam: Intact, gait normal Grooming : adequate Eye contact : normal Mood : pleasant
--- OUTSIDE RECORDS SUMMARY | 2024-01-27 10:30 | XMS_ITS ---
Author Organization [facility]ie Address [address] MARY [place]OU Christians[place] [id number] Care Team Providers Care Media Relations Associate Name Role Phone Dustin Perez Primary Care Provider [phone] Mellisa Ramos Unavailable [phone] Allergies Allergen (clinical drug ingredient) Drug/Non Drug Allergy documented on EMR Reaction Allergy Type Onset Date Status dextromethorphan / promethazine Promethazine-DM tongue swelling Drug Allergy Active Substance with sulfonamide structure and antibacterial mechanism of action (substance) Sulfa Antibiotics Unknown Drug Allergy Active REASON FOR VISIT back pain Medications Medication SIG (Take, Route, Fr equency, Duration) Notes Start Date End Date Status Nurtec 75 MG 1 tablet on the tong ue and allow to dissolve Orally 09/09/2023 Active predniSONE 10 MG 1 tablet Orally Two times a day; Duration: 5 day(s) 01/27/2024 Active Sertraline HCl 50 MG 1 tablet Orally Onc e a day; Duration: 30 day(s) 12/30/2023 Active Vital Signs Blood pressure systolic 130 mm Hg 01/27/20 24 Blood pressure diastolic 70 mm Hg 024 Heart Rate 85 /min 01/27/2024 Height 67 in 01/27/2024 Weight 139.2 lbs 01/27/2024 BMI 21.80 kg/m2 01/27/2024 Encounters Encounter Location Date Provider Diagnosis [facility] [address] MARY [place] Christians[place] [id number] 01/27/2024 Mellisa Costello Back muscle spasm M62.830 Assessments Encounter Date Diagnosis (ICD Code) Assessment Notes Treatment Notes Treatment Clinical Notes Section Notes 01/27/2024 Back muscle spasm (ICD-10 - M62.830) She is still . Will start on prednisone and use heat and massage. Plan Of Treatment Medication Medication Name Sig Start Date Stop Date Notes predniSONE 10 MG 1 tablet Orally Two times a day; Duration: 5 day(s) 01/27/2024 Treatment Notes Assessment Notes Back muscle spasm She is still breastf eeding. Will start on prednisone and use heat and massage. Next Appt Details Follow Up: prn, Reason: Progress Notes * SUE SANCHEZIDOB:2000 ( 24 yo F)Acc No.[id number]:01/27/2024 Progress Notes Patient: ANNE-MARIE COFFMAN Provider: MARIANNA Schwartz :2000 A ge:23 Y S ex:Female Date:01/27/2024 Address:[address] [place], [place] [id number] Pcp:Dustin Perez Subjective: * Chief Complaints: * 1 . Back pain. * HPI: L ower back: 23 year old female presents with c/o Low Back Pain P t presents today with c/o back pain. Pt sts she is having pain under her ribs. Pt it is a constant ache and gets worse with movement. Pt sts it has been hurting her for 4 days. Pt sts she has taken Tylenol, but sts that it does not help at all. Pt sts that heat does seem to help some. * ROS: D ERMATOLOGY: no R mindy. n o H gerald. G ASTROENTEROLOGY: no N ausea. n o V omiting. U ROLOGY: no D ifficulty urinating. n o B lood in urine. * Medical History: A llergies, Endometriosis, PCOS. * Surgical History: E ar Tubes, multiple times , [place] Teeth Extractions 04/2014, tonsillectomy , Adenoidectomy , Laparoscopic surgery for Endo. 05/2018, 03/2019. * Hospitalization/Major Diagno stic Procedure: [facility] ER , Constipation- [facility] ER 06/06/2016. * Family History: F ather: [...] to dissolve Orally , Taking Sertraline HCl 50 MG Tablet 1 tablet Orally Once a day , Medication List reviewed and reconciled with the patient * Allergies: S ulfa Antibiotics, Promethazine-DM: tongue swelling. Objective: * Vitals: W t:139.2, Temp:97.4, BP:130/70, HR:85, Nurse:RENEE, Ht: 67, BMI:21.80. * Examination: L ower back: Inspection: n ormal curvature of spine. P alpation:? no vertebral spine tenderness, paraspinal tenderness to the left of the T-spine. S traight leg raising test: n egative bilaterally. M otor system: n ormal bilaterally. S ensory exam: n ormal bilateral LE. G ait: n ormal. R ree of motion: decreased at terminal ranges. Assessment: * Assessment: 1. B ack muscle spasm - M62.830 (Primary) Plan: * Treatment: * Follow Up: p rn * Images: Billing Information: * Visit Code: 54791 Office Visit, Est Pt., Level 3. * Procedure Codes: * Electronic signature of MARIANNA Jain on 04/06/2025 at 03:16 PM EST Sign off status: Pending * Provider: MARIANNA Schwartz Date: 0 01/27/2024 Generated for Alexis chavez/Jeremy/Ezequielsmitting on: 1 06/06/2024 03:16 PM EST History and Physical Notes * HPI (History of Present Illness) Category Sub-Category Detail Notes Category Not es Lower back Low Back Pain Pt presents toda y with c/o back pain. Pt sts she is having pain under her ribs. Pt it is a constant ache and gets worse with movement. Pt sts it has been hurting her for 4 days. Pt sts she has taken Tylenol, but sts that it does not help at all. Pt sts that heat does seem to help some Examination Category Sub-Category Detail Notes Category Not es Lower back Straight leg raising test: negative bilat erally Motor system: normal bilaterally Sensory exam: normal bilateral LE Gait: normal Inspection: normal curvature of spine Palpation: no vertebral spine t enderness, paraspinal tenderness to the left of the T-spine Range of motion: decreased at termina l ranges
--- OUTSIDE RECORDS SUMMARY | 2024-02-04 03:30 | XMS_ITS ---
Author Organization [facility] Address [address] [facility] [place] [address] Care Team Providers Care Fretted Instrument Repairer Name Role Phone WiliShruti Unavailable [phone] Results Component Value Reference Range Notes *US Pelvis Complete Transabd ominal/Vaginal (Non-OB) Reviewed date:02/04/2024 09:19:13 AM Interpretation: Performing Lab: Notes/Report: [facility] Women's Health Transvaginal Pelvic Study Report Name: ELENA SANCHEZ Accession/Encounter No:[id number] : 2000 Age: 23 Gender: F Study Date: Feb 04, 2024 Study Time: 08:33 AM Reading Group: Shruti Rasheed MD Referring Group: Shruti Rasheed MD Ordering Phys: Shruti Rasheed MD Water Control Supervisor: Lalitha Gardner RDMS Equipment: Aff[employer]i 30 Study [...] 1 of 1 Imaging Center - , [facility] REASON FOR VISIT appt confirmed-cv....pt wants second opinion; she was told by current ADJUNCT PHILOSOPHY FACULTY office that she had abnormal uterus lining Social History Sex Assigned At : Social History Observation Description Sex Assigned At Female Encounters Encounter Location Date Provider Diagnosis [facility] [address] [place] [address] 02/04/2024 Shruti Rasheed Abnormal uterine bleeding N93.9 Assessments Encounter Date Diagnosis (ICD Code) Assessment Notes Treatment Notes Treatment Clinical Notes Section Notes 02/04/2024 Abnormal uterine bleeding (ICD-10 - N93.9) Plan Of Treatment No Information Progress Notes * Elena SANCHEZ CDOB:2000 (24 yo F)Acc No.[id number]:02/04/2024 Patient: Elena Tamez Provider: Terrell Rasheed MD :2000 A ge:23 Y S ex:Female Date:02/04/2024 Address:[address] [place], [place] [id number] Subjective: * Chief Complaints: * a ppt confirmed-cv....pt wants second opinion; she was told by current ADJUNCT PHILOSOPHY FACULTY office that she had abnormal uterus lining Assessment: * Assessment: 1. A bnormal uterine bleeding - N93.9 Plan: * Treatment: Billing Information: * Procedure Codes: * Electronic signature of Kari Rasheed MD on 04/06/2025 at 03:15 PM EST Sign off status: Pending Visit Status: Stephane DURAN (Check Out) * Provider: Terrell Rasheed MD Date: 0 02/04/2024 Generated for Alexis chavez/Jeremy/Leesaransmitting on: 06/06/2024 03:15 PM EST
--- OUTSIDE RECORDS SUMMARY | 2024-03-02 10:00 | XMS_ITS ---
Author Organization [facility] Address [address] [place] [id number] Care Team Providers Care Architectural Job Captain Name Role Phone Dustin Perez Primary Care Provider [phone] Mellisa Costello Unavailable [phone] Allergies Allergen (clinical drug ingredient) Drug/Non Drug Allergy documented on EMR Reaction Allergy Type Onset Date Status dextromethorphan / promethazine Promethazine-DM tongue swelling Drug Allergy Active Substance with sulfonamide structure and antibacterial mechanism of action (substance) Sulfa Antibiotics Unknown Drug Allergy Active REASON FOR VISIT discuss getting some blood work , and her ultrasounds Medications Medication SIG (Take, Route, Fr equency, Duration) Notes Start Date End Date Status Sertraline HCl 50 MG 1 tablet Orally Onc e a day; Duration: 30 day(s) 12/30/2023 Active Problems Problem Type SNOMED Code ICD Code Onset Dates Problem Status W/U Status Risk Notes Problem Vitamin D deficiency (36955423) Vitamin D deficiency (E55.9) Active confirmed Problem Abnormal transvaginal ultrasound (R93.89) Active confirmed Vital Signs Blood pressure systolic 110 mm Hg 03/02/20 24 Blood pressure diastolic 70 mm Hg 024 Heart Rate 77 /min 03/02/2024 Height 67 in 03/02/2024 Weight 145.4 lbs 03/02/2024 BMI 22.77 kg/m2 03/02/2024 Encounters Encounter Location Date Provider Diagnosis [facility] [address] [place] [id number] 03/02/2024 Mellisa Trang Vitamin D deficiency E55.9 ; Abnormal transvaginal ultrasound R93.89 and Vitamin B12 deficiency E53.8 Assessments Encounter Date Diagnosis (ICD Code) Assessment Notes Treatment Notes Treatment Clinical Notes Section Notes 03/02/2024 Vitamin D deficiency (ICD-10 - E55.9) 03/02/2024 Abnormal transvaginal ultrasound (ICD-10 - R93.89) The patient is going to go back and see Dr. Domingo. She would like to discuss the difference in findings from one ultrasound to another and the difference in recommendations as well of what treatment she should pursue. Will see if Dr. Domingo wants to do labs and if so, she will let me know and I can fax orders for our labs as well. 03/02/2024 Vitamin B12 deficiency (ICD-10 - E53.8) Plan Of Treatment Treatment Notes Assessment Notes Abnormal transvaginal ultrasound The pat ient is going to go back and see Dr. Domingo. She would like to discuss the difference in findings from one ultrasound to another and the difference in recommendations as well of what treatment she should pursue. Will see if Dr. Domingo wants to do labs and if so, she will let me know and I can fax orders for our labs as well. Next Appt Details Follow Up: with Loraine HELTON n: Progress Notes * DOUG SANCHEZB:2000 ( 24 yo F)Acc No.[id number]:03/02/2024 Progress Notes Patient: ANNE-MARIE COFFMAN Provider: MARIANNA Schwartz :2000 A ge:23 Y S ex:Female Date:03/02/2024 Address:[address] [place] [address] [id number] Pcp:Dustin Perez Subjective: * Chief Complaints: * 1 . Discuss getting some blood work , and her ultrasounds. * HPI: H PI: 23 year old female presents with c/o Patient is here today for?Pt would like to discuss her ultrasounds. She went to her OBGYN in [place] and they did an ultrasound and she was told everything was normal. Pt sts she had a rickher u ltrasound done for Dr. Domingo and was t old it showed c alcified spots in uterus. She is unsure what these spots are but has been told she will likely need OCP's vs a hysterectomy. She does not like either as an option at this time. . * ROS: D ERMATOLOGY: no R mindy. n o H gerald. G ASTROENTEROLOGY: no N ausea. n o V omiting. U ROLOGY: no D ifficulty urinating. n o B lood in urine. * Medical History: A llergies, Endometriosis, PCOS. * Surgical History: E ar Tubes, multiple times , [place] Teeth Extractions 04/2014, tonsillectomy , Adenoidectomy , Laparoscopic surgery for Endo. 05/2018, 03/2019. * Hospitalization/Major Diagno stic Procedure[facility]- [facility] 06/06/2016. * Family History: F ather: alive 49 yrs. M other: alive 47 yrs. 1 sister(s) - healthy. 1 son(s) - healthy. . * Social History: C URRENT TOBACCO USE S moking Status: Patient does NOT smoke. C affeine: no. Home smoke detector use: yes. Marital Status: Single. * Medications: T aking Sertraline HCl 50 MG Tablet 1 tablet Orally Once a day , Medication List reviewed and reconciled with the patient * Allergies: S ulfa Antibiotics, Promethazine-DM: tongue swelling. Objective: * Vitals: W t:145.4, Temp:97.8, BP:110/70, HR:77, O2 Sat:100% on RA, Nurse:RENEE, Ht: 67, BMI:22.77. * Examination: G eneral Examination: General Appearance: N AD. C hest: n ormal shape and expansion. H eart: R SR. L ungs: c lear to auscultation. A bdomen: bowel sounds present, soft and nontender, no organomegaly or masses, no guarding or rigidity. ? Assessment: * Assessment: 1. A bnormal transvaginal ultrasound - R93.89 (Primary) 2 . V itamin D deficiency - E55.9 3 . V itamin B12 deficiency - E53.8 Plan: * Treatment: * Procedure Codes: 9 4760 PULSE OX * Follow Up: w ith OBGYN * Images: Billing Information: * Visit Code: 42935 Office Visit, Est Pt., Level 3. * Procedure Codes: 44330 PULSE OX. * Electronic signature of MARIANNA Jain on 04/06/2025 at 03:16 PM EST Sign off status: Pending * Provider: MARIANNA Schwartz Date: Generated for Alexis chavez/Jeremy/Leesaransmitting on: 06/06/2024 03:16 PM EST History and Physical Notes * HPI (History of Present Illness) Category Sub-Category Detail Notes Category Not es HPI Patient is here today for Pt wou ld like to discuss her ultrasounds. She went to her OBGYN in [place] and they did an ultrasound and she was told everything was normal. Pt sts she had another ultrasound done for Dr. Domingo and was told it showed calcified spots in uterus. She is unsure what these spots are but has been told she will likely need OCP's vs a hysterectomy. She does not like either as an option at this time. Examination Category Sub-Category Detail Notes Category Not es General Examination Heart: RSR Lungs: clear to auscultatio n Abdomen: bowel sounds present , soft and nontender, no organomegaly or masses, no guarding or rigidity General Appearance: NAD Chest: normal shape and exp ansion
--- OUTSIDE RECORDS SUMMARY | 2024-07-13 05:30 | XMS_ITS ---
Author Organization [facility] Address [address] [place] [phone] Care Team Providers Care Apprentice Plumber Name Role Phone Dustin Perez Primary Care Provider [phone] Mellisa Costello Unavailable [phone] Allergies Allergen (clinical drug ingredient) Drug/Non Drug [...] a day; Duration: 30 day(s) 12/30/2023 Active Tzvsnmrvo-Bukkbxai-GK 30-2-10 MG/5ML 5-10 ml Orally 4 times [...] 07/13/2024 Encounters Encounter Location Date Provider Diagnosis [facility] [address] [facility] [address] [place], [place] [phone] 07/13/2024 Mellisa Trang Influenza J11.1 Assessments Encounter [...] Name Sig Start Date Stop Date Notes Lbslhpvfg-Shammsyi-VH 30-2-1 0 MG/5ML 5-10 ml Orally 4 [...] :2000 A ge:23 Y S ex:Female Date:07/13/2024 Address:[address] [place] [address] [place], [id number] Pcp:Dustin Perez Subjective: * Chief Complaints: * [...] History: E ar Tubes, multiple times , [place] Teeth Extractions 04/2014, tonsillectomy , Adenoidectomy , Laparoscopic surgery for Endo. 05/2018, 03/2019, partial hysterectomy [facility] 05/2024. * Hospitalization/Major Diagno stic Procedure: [facility] , Constipation- [facility] ER 06/06/2016. * Family History: F [...] auscultation bilaterally. Assessment: * Assessment: 1. [facility] (Primary) Plan: * Treatment: [...] * Procedure Codes: 9 4760 [place], [address] Flu Test- Nasal Swab, Modifiers: QW , 26457 COVID TEST IN HOUSE, Modifiers: QW , 82011 CAPILLARY BLOOD DRAW, 56518 CBC WITH AUTO DIFF * Follow Up: p rn * Images: Billing Information: * Visit Code: 78271 Office Visit, Est Pt., Level 3. * Procedure Codes: [address] [place]. [address] Flu Test- Nasal Swab. Modifiers: QW 26671 COVID TEST IN HOUSE. Modifiers: QW 90463 CAPILLARY BLOOD DRAW. 11960 CBC WITH AUTO DIFF. * Electronic signature of MARIANNA Jain on 04/06/2025 at 03:16 PM EST Sign off status: Pending * Provider: MARIANNA Schwartz Date: 0 07/13/2024 Generated for Alexis chavez/Jeremy/eTransmitting on: 1 06/06/2024 03:16 PM EST History [...]
--- OUTSIDE RECORDS SUMMARY | 2024-11-23 05:45 | XMS_ITS ---
Author Organization Mike Address 1210 [facility] [address] [id number] Care Team Providers Care Butcher Name Role Phone Dustin Perez Primary Care Provider Mellisa Costello [phone] Allergies Allergen (clinical drug ingredient) Drug/Non Drug Allergy documented on EMR Reaction Allergy Type Onset Date Status dextromethorphan / promethazine Promethazine-DM tongue swelling Drug Allergy Active Substance with sulfonamide structure and antibacterial mechanism of action (substance) Sulfa Antibiotics Unknown Drug Allergy Active REASON FOR VISIT AWV Encounters Encounter Location Date Provider Diagnosis [facility] [address] [id number] 11/23/2024 Mellisa Costello Plan Of Treatment No Information Progress Notes * DOUG SANCHEZB:2000 ( 24 yo F)Acc No.[id number]:11/23/2024 Annual Wellness Visit Patient: ANNE-MARIE COFFMAN Provider: MARIANNA Schwartz :2000 A ge:24 Y S ex:Female Date:11/23/2024 Address:[address] [place] [address] [facility] Pcp:Dustin Perez Subjective: * Chief Complaints: * 1 . AWV. * ROS: D ERMATOLOGY: no R mindy. n o H gerald. G ASTROENTEROLOGY: no N ausea. n o V omiting. n o D iarrhea.? U ROLOGY: no D ifficulty urinating. n o B lood in urine. * Medical History: A llergies, Endometriosis, PCOS. * Surgical History: E ar Tubes, multiple times , [place] Teeth Extractions 04/2014, tonsillectomy , Adenoidectomy , Laparoscopic surgery for Endo. 05/2018, 03/2019, partial hysterectomy [facility] 05/2024. * Hospitalization/Major Diagno stic Procedure: [facility] , Constipation- [facility] ER 06/06/2016. * Family History: F ather: alive 50 yrs. M other: alive 48 yrs. 1 sister(s) - healthy. 1 son(s) - healthy. . * Social History: C URRENT TOBACCO USE S moking Status: Patient does NOT smoke. C affeine: no. Home smoke detector use: yes. Marital Status: Single. * Allergies: S ulfa Antibiotics, Promethazine-DM: tongue swelling. Objective: * Vitals: Assessment: Plan: * Treatment: * Images: Billing Information: * Visit Code: * Procedure Codes: * Electronic signature of MARIANNA Jain on 04/06/2025 at 03:16 PM EST Sign off status: Pending * Provider: MARIANNA Schwartz Date: 0 11/23/2024 Generated for Alexis chavez/Jeremy/Mary on: 06/06/2024 03:16 PM EST
--- NOTE | 2025-04-06 15:00 | US_ITS ---
PROCEDURE: US TRANSVAGINAL CLINICAL INDICATION: pelvic pain COMPARISON: US US TRANSVAGINAL from 01/04/2024 US US TRANSVAGINAL from 02/21/2024 US US TRANSVAGINAL from 08/16/[address] ABDOMEN PELVIS W CON from 01/02/2025 US US TRANSVAGINAL from 01/02/2025 US US ABDOMEN LIMITED from 01/04/2025 FINDINGS: Transvaginal sonographic images of the pelvis were obtained. UTERUS: The uterus is surgically absent. The vaginal cuff is intact. LEFT OVARY: 5.6cmx5.5 cmx4.6cm with a volume of 73.9ml. There are multiple small peripheral follicles. There is a hemorrhagic cyst measuring 4.9 cm x 3.5 cm x 4.3 cm There is a follicle measuring 2.2 cm x 3.0 cm x 2.6 cm. There is a small amount of free fluid adjacent to the left ovary. RIGHT OVARY: 3.5 cmx 2.6 cmx1.6 cm with a volume of 7.4ml. There are multiple small peripheral follicles giving the ovary a polycystic appearance. Both ovaries are seen. Doppler flow to both ovaries are seen. There is a small amount fluid in the cul-de-sac. IMPRESSION: 1. The uterus is surgically absent. The vaginal vault is intact. 2. The left ovary is enlarged and contains a 4.9 cm hemorrhagic cyst. Suggest repeat scan in 2 months to see its resolution. 3. The right ovary is seen and appears polycystic. 4. There is a small amount of fluid in the cul-de-sac. There is a small amount of fluid adjacent to the left ovary. Dictated by: Mario Bhagat MD 04/07/2025 08:41 Mario Bhagat MD in OV 04/07/2025 08:41
--- OUTSIDE RECORDS SUMMARY | 2025-04-06 15:16 | XMS_ITS | Clinical Summary ---
Author Organization [facility] Address [address] [place] [address] Care Team Providers Care Power Transmission Engineer Name Role Phone Mellisa Costello Primary Care Provider [phone] Allergies Active Allergy Reactions Criticality Noted Date [...] Active vitamin D (ERGOCALCIFEROL ) 1.25 MG (50262 UT) capsule capsule Take 1 capsule by [...] will need to be followed by a senior investment manager or pediatric urologist after delivery if the [...] of Binge Drinking Not on file 07/2019 [place] Depression Scale Answer Date Recorded [place] Depression Scale Total 3 06/27/2021 The thought [...] - 3-dose series) 2013 ANNUAL PHYSICAL 06/29/2021 INFLUENZA VACCINE 12/15/2024 TDAP/TD VACCINES (2 - Td or Tdap) [...] ve Non-Reacti ve 12/31/2020 7:34 PM EDT [facility] Blood Venipuncture / Unknown 12/31/2020 12:56 PM EDT 12/31/2020 12:57 PM EDT Narrative [facility] - 12/31/2020 7:34 PM EDT Results may be falsely decreased if patient taking Biotin. us Shruti Rasheed MD LAB BLOOD ORDERABLES Final Re sult [facility]
[address] [place] [address], from Last 3 Months or Most Recently Relevant to Health Maintenance [place] [address] [address] PPO Member Subscriber Plan / Payer (Ef fective 2013-Present) Name:Elena Mascorro Relation to Subscriber:Child Name:ELVIA VARELA Date of :1972 (Home) Address: [address] [place] [address] [address] [place] [address] Payer ID:[id number] (NAIC) Type:Not on file Address: [facility] [id number] Advance Directives * CPR (Attempt to [...] pulse or is breathing): Full Care Teams Power Transmission Engineer Relationship Specialty Start Date End Date Mellisa Costello PA [address] [place] [facility] [address] [facility] [address] [place] [address] PCP - General Physician Human Resources Benefits Manager 02/24/23
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
== END 2025-04-06 23:59 | disposition home or self-care (01) ==
LOC: RAD 15:14
PROVIDERS: PCP Physician Assistant; Visit Provider Obstetrics & Gynecology
DX: E28.2 Polycystic ovarian syndrome (principal); N83.8 Other noninflammatory disorders of ovary, fallopian tube and broad ligament; R93.89 Abnormal findings on diagnostic imaging of other specified body structures; R10.20 Pelvic and perineal pain unspecified side; G89.29 Other chronic pain; Z90.710 Acquired absence of both cervix and uterus
CPT/HCPCS: 76830

== ENCOUNTER 2025-04-30 18:28 | Outpatient (CLI) | payer OTHER, SELFPAY ==
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
--- OUTSIDE RECORDS SUMMARY | 2023-12-30 08:15 | XMS_ITS ---
Author Organization Lizzie Address [address] [facility] [address] MARY LOU Christians[place] [phone] Care Team Providers Care Bonding Equipment Operator Name Role Phone Dustin Perez Primary Care Provider [phone] Mellisa Ramos [phone] Allergies Allergen (clinical drug ingredient) Drug/Non Drug [...] Diagnosis [facility] [address] [email or web address] 2[address] MARY LOU Christianson [phone] 12/30/2023 Mellisa Costello Anxiety F41.9 Assessments Encounter [...] :2000 A ge:23 Y S ex:Female Date:12/30/2023 Address:[address] [place] [address] [facility] Pcp:Dustin Perez Subjective: * Chief Complaints: * [...] History: E ar Tubes, multiple times , [place] Teeth Extractions 04/2014, tonsillectomy , Adenoidectomy , Laparoscopic surgery for Endo. 05/2018, 03/2019. * Hospitalization/Major Diagno stic Procedure: [facility] ER , Constipation- [facility] ER 06/06/2016. * Family History: F ather: [...] * Images: Billing Information: * Visit Code: 70963 Office Visit, Est Pt., Level 3. * Procedure Codes: * Electronic signature of MARIANNA Jain on 04/30/2025 at 06:32 PM EST Sign off status: Pending * Provider: MARIANNA Schwartz Date: 0 12/30/2023 Generated for Alexis chavez/Jeremy/Mary on: 1 07/01/2024 06:32 PM EST History and Physical Notes * [...]
--- OUTSIDE RECORDS SUMMARY | 2024-01-27 10:30 | XMS_ITS ---
Author Organization L[facility]ie Address [address] [place] [id number] Care Team Providers Care Hearing Aid Assembly Supervisor Name Role Phone Dustin Perez Primary Care Provider [phone] Mellisa Ramos Unavailable [phone] Allergies Allergen (clinical drug ingredient) Drug/Non Drug [...] [address] [place] [phone] 01/27/2024 Mellisa Costello Back muscle spasm M62.830 [...] :2000 A ge:23 Y S ex:Female Date:01/27/2024 Address:[address] [place], [place] [address] Pcp:Dustin Perez Subjective: * Chief Complaints: * [...] History: E ar Tubes, multiple times , [place] Teeth Extractions 04/2014, tonsillectomy , Adenoidectomy , Laparoscopic surgery for Endo. 05/2018, 03/2019. * Hospitalization/Major Diagno stic Procedure: [facility] , Constipation- [facility] ER 06/06/2016. * Family History: F ather: [...] * Images: Billing Information: * Visit Code: 58257 Office Visit, Est Pt., Level 3. * Procedure Codes: * Electronic signature of MARIANNA Jain on 04/30/2025 at 06:32 PM EST Sign off status: Pending * Provider: MARIANNA Schwartz Date: 0 01/27/2024 Generated for Alexis chavez/Jeremy/Ezequielsmitting on: 1 07/01/2024 06:32 PM EST History [...]
--- OUTSIDE RECORDS SUMMARY | 2024-02-04 03:30 | XMS_ITS ---
Author Organization [facility] Address [address] [place] [address] Care Team Providers Care Drying Machine Operator Name Role Phone WiliShruti Unavailable [phone] Results Component Value Reference Range Notes *US Pelvis Complete Transabd ominal/Vaginal (Non-OB) Reviewed date:02/04/2024 09:19:13 AM Interpretation: Performing Lab: Notes/Report: [facility] Women's Health Transvaginal Pelvic Study Report Name: ELENA SANCHEZ Accession/Encounter No:[id number] : 2000 Age: 23 Gender: F Study Date: Feb 04, 2024 Study Time: 08:33 AM Reading Group: Shruti Rasheed MD Referring Group: Shruti Rasheed MD Ordering Phys: Shruti Rasheed MD Stock Controller: Lalitha Gardner RDMS Equipment: [employer] 30 Study Quality: Good Indications: Abnormal uterus lining on outside scan A complete pelvic transvaginal ultrasound was performed. Sag AP Trans Volume cm cm cm ml Uterus 4.46 2.64 4.6 28.36 Right ovary: 2.96 1.93 2.48 7.42 Left ovary: 3.46 2.04 1.64 6.06 Endometrium thickness: 3.3 mm Findings: A transvaginal exam was performed. The uterus is anteverted. The uterus is 4.46 x 2.64 x 4.6 cm, with volume of 28.36 ml. The endometrium measures 3.3 mm. The right ovary measures 2.96 x 1.93 x 2.48 cm, volume 7.42 ml. The left ovary measures 3.46 x 2.04 x 1.64 cm, volume 6.06 ml. The cervix is 2.45 cm long. Conclusions: Uterus and ovaries appear normal. No free fluid or adnexal masses noted Approved By: Shruti Rasheed MD Approved at: February 04, 2024 08:57 AM EDT Electronically Signed on Studycast ELENA SANCHEZ 2024-02-04 Page 1 of 1 Imaging Center - , [facility] REASON FOR VISIT appt confirmed-cv....pt wants second opinion; she was told by current BUSINESS SUPPORT SPECIALIST office that she had abnormal uterus lining Social History Sex Assigned At : Social History Observation Description Sex Assigned At Female Encounters Encounter Location Date Provider Diagnosis [facility] [address] [place] [address] 02/04/2024 Shruti Rasheed Abnormal uterine bleeding N93.9 Assessments Encounter Date Diagnosis (ICD Code) Assessment Notes Treatment Notes Treatment Clinical Notes Section Notes 02/04/2024 Abnormal uterine bleeding (ICD-10 - N93.9) Plan Of Treatment No Information Progress Notes * Elena SANCHEZ CDOB:2000 (24 yo F)Acc No.[id number]:02/04/2024 Patient: Elena Tamez Provider: Terrell Rasheed MD :2000 A ge:23 Y S ex:Female Date:02/04/2024 Address:[address] [place], [place] [id number] Subjective: * Chief Complaints: * a ppt confirmed-cv....pt wants second opinion; she was told by current BUSINESS SUPPORT SPECIALIST office that she had abnormal uterus lining Assessment: * Assessment: 1. A bnormal uterine bleeding - N93.9 Plan: * Treatment: Billing Information: * Procedure Codes: * Electronic signature of Kari Rasheed MD on 04/30/2025 at 06:32 PM EST Sign off status: Pending Visit Status: Stephane DURAN (Check Out) * Provider: Terrell Rasheed MD Date: 0 02/04/2024 Generated for Alexis chavez/Jeremy/Ezequielsmitting on: 07/01/2024 06:32 PM EST
--- OUTSIDE RECORDS SUMMARY | 2024-03-02 10:00 | XMS_ITS ---
Author Organization [facility] Address [address] [place] [id number] Care Team Providers Care Wood Technologist Name Role Phone Dustin Perez Primary Care Provider [phone] Mellisa Costello Unavailable [phone] Allergies Allergen (clinical drug ingredient) Drug/Non Drug [...] Status Risk Notes Problem Vitamin D deficiency (84528640) Vitamin D deficiency (E55.9) Active confirmed Problem [...] [address] [place] [id number] 03/02/2024 Mellisa Trang Vitamin D deficiency E55.9 [...] :2000 A ge:23 Y S ex:Female Date:03/02/2024 Address:[address] [place] [address] [id number] Pcp:Dustin Perez Subjective: * Chief Complaints: * 1 . Discuss getting some blood work , and her ultrasounds. * HPI: H PI: 23 year old female presents with c/o Patient is here today for?Pt would like to discuss her ultrasounds. She went to her OBGYN in [place] and they did an ultrasound and she [...] History: E ar Tubes, multiple times , [place] Teeth Extractions 04/2014, tonsillectomy , Adenoidectomy , Laparoscopic surgery for Endo. 05/2018, 03/2019. * Hospitalization/Major Diagno stic Procedure: [facility] , Constipation- [facility] 06/06/2016. * Family History: F [...] * Images: Billing Information: * Visit Code: 20226 Office Visit, Est Pt., Level 3. * Procedure Codes: 82857 PULSE OX. * Electronic signature of MARIANNA Jain on 04/30/2025 at 06:33 PM EST Sign off status: Pending * Provider: MARIANNA Schwartz Date: 1 Generated for Alexis chavez/Jeremy/Leesarantuitting on: 07/01/2024 06:33 PM EST History and Physical Notes * HPI (History of Present Illness) Category Sub-Category Detail Notes Category Not es HPI Patient is here today for Pt wou ld like to discuss her ultrasounds. She went to her OBGYN in [place] and they did an ultrasound and she [...]
--- OUTSIDE RECORDS SUMMARY | 2024-07-13 05:30 | XMS_ITS ---
Author Organization [facility] Address [address] [place] [phone] Care Team Providers Care Dramatic Critic Name Role Phone Dustin Perez Primary Care Provider Mellisa Costello Unavailable [phone] Allergies Allergen (clinical drug ingredient) Drug/Non Drug Allergy documented on EMR Reaction Allergy Type Onset Date Status dextromethorphan / promethazine Promethazine-DM tongue swelling Drug Allergy Active Substance with sulfonamide structure and antibacterial mechanism of action (substance) Sulfa Antibiotics Unknown Drug Allergy Active Results Component Value Reference Range Notes Influenza Screen (in house) Reviewed date:07/13/2024 01:06:08 PM Interpretation: Performing Lab: Notes/Report: results Neg CBC Fingerstick (in house) Reviewed date:07/13/2024 01:06:08 PM Interpretation: Performing Lab: Notes/Report: wbc 6.3 3.5 - 10 lym 20.1% 15 - 50 mid 5.0% 2 - 15 gran 74.9% 35 - 80 rbc 4.45 3.5 - 5.5 hgb 13.3 11.5 - 16.5 hct 38.9 35 - 55 mcv 87.4 75 - 100 mch 30.0 25 - 35 mchc 34.3 31 - 38 plat 110 100 - 400 Covid test (in house) Reviewed date:07/13/2024 01:06:08 PM Interpretation: Performing Lab: Notes/Report: Result: Neg REASON FOR VISIT possible flu Medications Medication SIG (Take, Route, Frequency, Duration) Notes Start Date End Date Status Sertraline HCl 50 MG 1 tablet Orally Onc e a day; Duration: 30 day(s) 12/30/2023 Active Ynrhfrgrr-Wfgztzip-XE 30-2-10 MG/5ML 5-10 ml Orally 4 times a day, prn 07/13/2024 Active Tamiflu 75 MG 1 capsule Orally Twi ce a day; Duration: 5 day(s) 07/13/2024 Active Vital Signs Blood pressure systolic 100 mm Hg 07/13/19 25 Blood pressure diastolic 76 mm Hg 025 Heart Rate 99 /min 07/13/2024 Height 67 in 07/13/2024 Weight 139.0 lbs 07/13/2024 BMI 21.77 kg/m2 07/13/2024 Encounters Encounter Location Date Provider Diagnosis [facility] [address] [facility] [address] [place], [place] [phone] 07/13/2024 Mellisa Trang Influenza J11.1 Assessments Encounter Date Diagnosis (ICD Code) Assessment Notes Treatment Notes Treatment Clinical Notes Section Notes 07/13/2024 Influenza (ICD-10 - J11.1) Patient's 3 children have the flu and she clinically has the flu. Will treat with tamiflu. She states she can take bromfed but no phenergan DM. Will send rx. Plan Of Treatment Medication Medication Name Sig Start Date Stop Date Notes Fomahxoku-Iemjryhp-RY 30-2-1 0 MG/5ML 5-10 ml Orally 4 times a day, prn 07/13/2024 Tamiflu 75 MG 1 capsule Orally Twi ce a day; Duration: 5 day(s) 07/13/2024 Treatment Notes Assessment Notes Influenza Patient's 3 children have the flu and she clinically has the flu. Will treat with tamiflu. She states she can take bromfed but no phenergan DM. Will send rx. Next Appt Details Follow Up: prn, Reason: Progress Notes * DOUG SANCHEZB:2000 ( 24 yo F)Acc No.[id number]:07/13/2024 Progress Notes Patient: SUE COFFMANI Provider: MARIANNA Schwartz :2000 A ge:23 Y S ex:Female Date:07/13/2024 Address:[address] [place] [address] [place], [id number] Pcp:Dustin Perez Subjective: * Chief Complaints: * 1 . Possible flu. * HPI: E NT/respiratory: The pt is here today with c/o congestion since wednesday. Pt states all three of her kids have flu. Pt states she woke up last night with chest pain and drop in her oxygen when she stands up. 23 year old female presents with c/o cough. c/o Fever.? c/o Chest Pain. c/o Short of Breath. Denies : sore throat. * ROS: D ERMATOLOGY: no R mindy. n o H gerald. G ASTROENTEROLOGY: no N ausea. n o V omiting. n o D iarrhea.? U ROLOGY: no D ifficulty urinating. n o B lood in urine. * Medical History: A llergies, Endometriosis, PCOS. * Surgical History: E ar Tubes, multiple times , [place] Teeth Extractions 04/2014, tonsillectomy , Adenoidectomy , Laparoscopic surgery for Endo. 05/2018, 03/2019, partial hysterectomy [facility] 05/2024. * Hospitalization/Major Diagno stic Procedure: [facility] ER , Constipation- [facility] ER 06/06/2016. * Family History: F ather: alive 50 yrs. M other: alive 48 yrs. 1 sister(s) - healthy. 1 son(s) [...] Promethazine-DM: tongue swelling. Objective: * Vitals: W t:139.0, Temp:97.9, BP:100/76, HR:99, O2 Sat:99% on RA, Nurse:IVORY, Ht: 67, BMI:21.77. * Examination: E NT/Respiratory: General Appearance: Does not appear to feel well. E ars: a uditory canals normal bilaterally, TM's WNL. N ose : turbinates red, congested.?Sinuses : tender maxillary sinuses bilaterally. O ral cavity : erythema without exudate on pharynx. N alex : n o cervical lymphadenopathy. H eart : R RR, normal S1 S2, no murmurs. L ungs: c lear to auscultation bilaterally. Assessment: * Assessment: 1. [facility] (Primary) Plan: * Treatment: Value Reference Range r esults Neg * Mary Gil 07/13/2024 11: 47:03 AM > , Provider reviewed results while patient in office. ?LAB: CBC Fingerstick (in house) (Collection Date & Time - 07/13/2024)* Value Reference Range w bc 6.3 3.5 - 10 * l ym 20.1% 15 - 50 * m id 5.0% 2 - 15 * g ran 74.9% 35 - 80 * r bc 4.45 3.5 - 5.5 * h gb 13.3 11.5 - 16.5 * h ct 38.9 35 - 55 * m cv 87.4 75 - 100 * m ch 30.0 25 - 35 * m chc 34.3 31 - 38 * p lat 110 100 - 400 * Mary Gil 07/13/2024 11: 48:06 AM > , Provider reviewed results while patient in office. ?LAB: Covid test (in house) (Collection Date & Time - 07/13/2024)* Value Reference Range R esult: Neg * Mary Gil 07/13/2024 11: 46:25 AM > , Provider reviewed results while patient in office. Notes: Patient's 3 children have the flu and she clinically has the flu. Will treat with tamiflu. She states she can take bromfed but no phenergan DM. Will send rx.?? * Procedure Codes: 9 4760 [place], [address] Flu Test- Nasal Swab, Modifiers: QW , 63550 COVID TEST IN HOUSE, Modifiers: QW , 82242 CAPILLARY BLOOD DRAW, 59671 CBC WITH AUTO DIFF * Follow Up: p rn * Images: Billing Information: * Visit Code: 75677 Office Visit, Est Pt., Level 3. * Procedure Codes: [address] [place]. [address] Flu Test- Nasal Swab. Modifiers: QW 56069 COVID TEST IN HOUSE. Modifiers: QW 27363 CAPILLARY BLOOD DRAW. 85520 CBC WITH AUTO DIFF. * Electronic signature of MARIANNA Jain on 04/30/2025 at 06:32 PM EST Sign off status: Pending * Provider: MARIANNA Schwartz Date: 0 07/13/2024 Generated for Alexis chavez/Jeremy/eTransmitting on: 1 07/01/2024 06:32 PM EST History and Physical Notes * HPI (History of Present Illness) Category Sub-Category Detail Notes Category Not es ENT/respiratory sore throat Short of Breath Chest Pain cough Fever Examination Category Sub-Category Detail Notes Category Not es ENT/Respiratory Oral cavity : erythema without exudate on pharynx Sinuses : tender maxillary sin uses bilaterally Ears: auditory canals norm al bilaterally, TM's WNL Neck : no cervical lymphade nopathy Heart : RRR, normal S1 S2, n o murmurs Lungs: clear to auscultatio n bilaterally General Appearance: Does not appear to f eel well Nose : turbinates red, jeevan ested
--- OUTSIDE RECORDS SUMMARY | 2024-11-23 05:45 | XMS_ITS ---
Author Organization Mike Address 1210 [facility] [address] [id number] Care Team Providers Care Rn Or Lvn Name Role Phone Dustin Perez Primary Care Provider Mellisa Costello [phone] Allergies Allergen (clinical drug ingredient) Drug/Non Drug Allergy documented on EMR Reaction Allergy Type Onset Date Status dextromethorphan / promethazine Promethazine-DM tongue swelling Drug Allergy Active Substance with sulfonamide structure and antibacterial mechanism of action (substance) Sulfa Antibiotics Unknown Drug Allergy Active REASON FOR VISIT AWV Encounters Encounter Location Date Provider Diagnosis [facility] [address] [id number] 11/23/2024 Mellisa Costello Plan Of Treatment No Information Progress Notes * DOUG SANCHEZB:2000 ( 24 yo F)Acc No.[id number]:11/23/2024 Annual Wellness Visit Patient: ANNE-MARIE COFFMAN Provider: MARIANNA Schwartz :2000 A ge:24 Y S ex:Female Date:11/23/2024 Address:[address] [place] [address] [facility] Pcp:Dustin Perez Subjective: * Chief Complaints: * 1 . AWV. * ROS: D ERMATOLOGY: no R mindy. n o H gerald. G ASTROENTEROLOGY: no N ausea. n o V omiting. n o D iarrhea.? U ROLOGY: no D ifficulty urinating. n o B lood in urine. * Medical History: A llergies, Endometriosis, PCOS. * Surgical History: E ar Tubes, multiple times , [place] Teeth Extractions 04/2014, tonsillectomy , Adenoidectomy , Laparoscopic surgery for Endo. 05/2018, 03/2019, partial hysterectomy [facility] 05/2024. * Hospitalization/Major Diagno stic Procedure: M [facility] , Constipation- [facility] ER 06/06/2016. * Family History: F [...] 0 11/23/2024 Generated for Alexis chavez/Jeremy/Mary on: 1 07/01/2024 06:33 PM EST
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
--- NOTE | 2025-04-30 18:59 | XR_ITS ---
PROCEDURE INFORMATION: Exam: XR Abdomen Exam date and time: 04/30/2025 6:49 PM Age: 24 years old Clinical indication: Constipation TECHNIQUE: Imaging protocol: Radiologic exam of the abdomen. Views: Frontal supine view of the abdomen. 1 View. Total images: 2 COMPARISON: CT ABDOMEN PELVIS W CON 01/02/2025 5:16 PM FINDINGS: Heart/Mediastinum: Normal heart size. Lungs: The lung bases are clear. Gastrointestinal tract: Nonspecific, nonobstructive bowel gas distribution. No dilated small bowel segments. Mild colonic stool burden. Intraperitoneal space: Surgical clip left hemipelvis. No free intraperitoneal air. Organs: Status post cholecystectomy. No organomegaly or pathologic calcifications. Bones/joints: Unremarkable. Soft tissues: The peritoneal fascial planes are maintained. IMPRESSION: 1. Nonspecific, nonobstructive bowel gas distribution. 2. Mild colonic stool burden.
== END 2025-04-30 23:59 | disposition home or self-care (01) ==
LOC: RAD 18:31
PROVIDERS: PCP Physician Assistant; Visit Provider Nurse Practitioner
DX: K59.00 Constipation, unspecified (principal); R93.3 Abnormal findings on diagnostic imaging of other parts of digestive tract
CPT/HCPCS: 74018